=== PATIENT | male | born 1980 | race Caucasian/White ===

== ENCOUNTER 2019-12-17 23:08 | Emergency (ER) | payer OTHER, SELFPAY ==
[2019-12-17 23:39] VITALS: BP 152/74; PULSE 80; RESP 16; TEMP 37.2; O2SAT 98; BMI 38.9
--- NOTE | 2019-12-18 00:42 | HMH.EDEYEP ---
ED Disposition Clinical Impression: Foreign body, eye Qualifiers: Encounter type: initial encounter Laterality: right Qualified Code(s): T15.91XA - Foreign body on external eye, part unspecified, right eye, initial encounter Disposition: Home, Self-Care Condition on Discharge: Good Instructions: DI for Eye Pain Additional Instructions: see dr head this am for follow up Referrals: Jorge A Hodge MD [Primary Care Provider] - - Critical Care Critical Care Time: No Attestation: On 12/17/19, the high probability of a clinically significant, sudden or life threatening deterioration of the following system(s) required my full and direct attention, intervention and personal management. The time I documented below is in addition to time spent performing reported procedures but includes the following listed in this critical care notation. Medical Decision Making - Medical Records Medical records reviewed: Yes: I reviewed the patient's medical records. - Ye Inquiry Pt receiving controlled substance: No Vital Signs: 12/17/19 23:39 Temperature 98.9 F Temperature Source Oral Pulse Rate [Right Brachial] 80 Respiratory Rate 16 Blood Pressure [Right Arm] 152/74 H Blood Pressure Mean [Right Arm] 100 Blood Pressure Source [Right Arm] Automatic Cuff Blood Pressure Position [Right Arm] Sitting 02 Sat by Pulse Oximetry 98 Oxygen Delivery Method Room Air Eye Problem HPI - General Chief complaint: Eye Problems Stated complaint: FB in right eye Time Seen by Provider: 12/18/19 00:00 Mode of Arrival: Family Vehicle Source of Information: Patient, Medical Record Limitations: No Limitations Description of Symptoms (Recalled from ER Triage Doc. by RN): right eye pain; states he was cutting wood and he thinks a speck may have gotten inside his eye. denies vision associated issues. flushed with tapwater. - History of Present Illness HPI Narrative: cutting wood and possible fb in rt eye chief complaint: foreign body Onset (ago): hour(s) Duration: now resolved Location: right eye Eye Symptoms: foreign body sensation Place: home Mechanism: other (sawwing wood ) Severity: moderate Treatments Prior to Arrival: none - Related Data Home Medications Medication Instructions Recorded Confirmed montelukast 10 mg tablet 10 mg PO DAILY tab 11/04/19 12/11/19 Previous Rx's Medication Instructions Recorded fluticasone propionate 50 See Rx Instructions .ROUTE 11/28/19 mcg/actuation nasal .COMPLEX #16 gram spray,suspension escitalopram oxalate 20 mg tablet 20 mg PO DAILY #30 tab 12/11/19 hydroxyzine pamoate 25 mg capsule 25 mg PO TID PRN #60 cap 12/11/19 loratadine 10 mg disintegrating 10 mg PO DAILY PRN #30 tab 12/11/19 tablet Allergies Allergy/AdvReac Type Severity Reaction Status Date / Time acetaminophen [From Vicodin] Allergy Verified 12/11/19 15:24 hydrocodone [From Vicodin] Allergy Verified 12/11/19 15:24 propoxyphene Allergy Verified 12/11/19 15:24 [From Darvocet-N] [facility] History - Hepatitis A Screen Drug use history?: No High risk sexual behaviors?: No History of sexually transmitted infection?: No Currently employed?: No Childcare worker?: No Do you have indoor plumbing?: Yes Do you have electricity?: Yes Attestation statement:: This patient has been screened for Hepatitis A risk factors. I have reviewed the patient's past medical history: Yes Medical History: Denies:: Cancer, Diabetes Mellitus Type 1, Diabetes Mellitus Type 2, MRSA, Seizures Other Medical History: Denies: Blood Transfusion Reaction Laterality Cases: Bilateral: Tonsillectomy Other Surgeries: Yes: Other Amputation: No Fractures: No Comment: right hand tendon, left wrist - Social History Smoking Status: Current every day smoker Tobacco Type: cigarettes # Packs/Day (cigarettes): 1 Alcohol Intake: never Substance Use Type: denies use Occupational Status: unemployed Housing: house Household
[2019-12-18 00:51] VITALS: BP 121/65; PULSE 76; RESP 15; TEMP 36.1; O2SAT 98
== END 2019-12-18 00:54 | disposition home or self-care (01) ==
PROVIDERS: Emergency Provider Emergency Medicine; PCP Emergency Medicine
DX: T15.91XA Foreign body on external eye, part unspecified, right eye, initial encounter (principal); W45.8XXA Other foreign body or object entering through skin, initial encounter; Y92.89 Other specified places as the place of occurrence of the external cause; F17.210 Nicotine dependence, cigarettes, uncomplicated
CPT/HCPCS: 99281

== ENCOUNTER 2020-07-21 15:59 | Emergency (ER) | payer OTHER, SELFPAY ==
[2020-07-21 16:08] VITALS: BP 120/78; PULSE 85; RESP 18; TEMP 36.7; O2SAT 98; BMI 32.5
--- NOTE | 2020-07-21 16:16 | XR_ITS ---
PROCEDURE INFORMATION: Exam: XR Left Knee Exam date and time: 07/21/2020 4:16 PM Age: 40 years old Clinical indication: Pain; Knee; Left TECHNIQUE: Imaging protocol: XR Left knee. Views: 3 views. COMPARISON: No relevant prior studies available. FINDINGS: Bones/joints: There is no evidence of acute fracture. There is no evidence of joint malalignment or dislocation. Soft tissues: There are no soft tissue masses or fluid collections. IMPRESSION: 1. No evidence of acute fracture. 2. No evidence of acute dislocation.
[2020-07-21 16:18] VITALS: BP 120/78; PULSE 85; RESP 18; TEMP 36.7; O2SAT 98
--- NOTE | 2020-07-21 17:24 | HMH.EDUTC ---
[facility] Disposition Clinical Impression: Left knee pain Qualifiers: Chronicity: acute Qualified Code(s): M25.562 - Pain in left knee Disposition: Home, Self-Care Condition on Discharge: Good Instructions: How to Use Crutches, DI for Knee Pain, How to Use a Knee Immobilizer Additional Instructions: Rest the extremity, Elevate the extremity as tolerated while you are resting. Take ibuprofen for pain. I sent in a prescription to your pharmacy. Follow up with Dr. Morales (orthopedics). I put in a referral but you need to call his office and schedule an appointment. Follow up with your regular doctor. GO TO THE ER FOR ANY WORSENING SYMPTOMS Prescriptions: Ibuprofen [Ibuprofen 800mg Tablet] 800 mg PO Q8HP PRN #30 tab PRN Reason: Moderate Pain Transmission Status: Received by [employer] #[id number] Referrals: Jorge A Hodge MD [Primary Care Provider] - Forms: Work/School Release Time of Disposition: 17:32 Medical Decision Making - Medical Records Medical records reviewed: No: I reviewed the patient's medical records. - Ye Inquiry Pt receiving controlled substance: No Vital Signs: 07/21/20 16:08 07/21/20 16:18 Temperature 98.1 F 98.1 F Temperature Source Oral Pulse Rate 85 Pulse Rate [Left] 85 Respiratory Rate 18 18 Blood Pressure 120/78 Blood Pressure [Right Arm] 120/78 Blood Pressure Mean [Right Arm] 92 02 Sat by Pulse Oximetry 98 - Radiology Data #1 Image(s): Knee Image Reviewed: Yes I reviewed the patient's radiology image, Yes I have reviewed radiologist's interpretation Preliminary Findings: No Fracture Seen PROCEDURE INFORMATION: Exam: XR Left Knee Exam date and time: 07/21/2020 4:16 PM Age: 40 years old Clinical indication: Pain; Knee; Left TECHNIQUE: Imaging protocol: XR Left knee. Views: 3 views. COMPARISON: No relevant prior studies available. FINDINGS: Bones/joints: There is no evidence of acute fracture. There is no evidence of joint malalignment or dislocation. Soft tissues: There are no soft tissue masses or fluid collections. IMPRESSION: 1. No evidence of acute fracture. 2. No evidence of acute dislocation. [facility] [place] HPI - General Stated complaint: left knee is hurting Time Seen by Provider: 07/21/20 17:24 Mode of Arrival: Ambulatory Source of Information: Patient Limitations: No Limitations Description of Symptoms (Recalled from Triage Doc. by RN): Pt states he woke up 2 days ago and his left knee was hurting and not getting any better. Pt denies any injury. HEENT Symptoms (Recalled from RN notes): No Resp Symptoms (Recalled from RN notes): No Skin Symptoms (Recalled from RN notes): No MS Symptoms (Recalled from RN notes): Yes Functional Status (Recalled from RN notes): wnl - History of Present Illness Provider Complaint: His knee pain started 2 days ago. He denies any recent injury. He states that standing on the knee and walking makes the pain worse. He has been taking aspirin and tylenol at home for pain, with not much relief noted. - Related Data Home Medications Medication Instructions Recorded Confirmed montelukast 10 mg tablet 10 mg PO DAILY tab 11/04/19 12/11/19 Previous Rx's Medication Instructions Recorded fluticasone propionate 50 See Rx Instructions .ROUTE 11/28/19 mcg/actuation nasal .COMPLEX #16 gram spray,suspension escitalopram oxalate 20 mg tablet 20 mg PO DAILY #30 tab 12/11/19 hydroxyzine pamoate 25 mg capsule 25 mg PO TID PRN #60 cap 12/11/19 loratadine 10 mg disintegrating 10 mg PO DAILY PRN #30 tab 12/11/19 tablet Ibuprofen [Ibuprofen 800mg 800 mg PO Q8HP PRN #30 tab 07/21/20 Tablet] Allergies Allergy/AdvReac Type Severity Reaction Status Date / Time acetaminophen [From Vicodin] Allergy Verified 07/21/20 16:18 hydrocodone [From Vicodin] Allergy Verified 07/21/20 16:18 propoxyphen
== END 2020-07-21 17:44 | disposition home or self-care (01) ==
PROVIDERS: Emergency Provider Nurse Practitioner Family; PCP Emergency Medicine
DX: M25.562 Pain in left knee (principal); Z88.5 Allergy status to narcotic agent; F17.210 Nicotine dependence, cigarettes, uncomplicated
CPT/HCPCS: 73562; 99202; G0463

== ENCOUNTER 2020-09-22 19:57 | Emergency (ER) | payer OTHER, SELFPAY ==
[2020-09-22 20:20] VITALS: BP 145/97; PULSE 83; RESP 19; TEMP 36.8; O2SAT 98; BMI 32.5
--- NOTE | 2020-09-22 20:48 | HMH.EDUTC ---
[facility] Disposition Clinical Impression: Laceration Disposition: Home, Self-Care Condition on Discharge: Good Instructions: How to Care for a Laceration After Repair, Laceration Repair, DI for Laceration Repair Additional Instructions: Suture instructions: You have required stitches today. Please read the following instructions so you know how to care for them: 1. Keep wound area dry for the first 24 hours. 2 May clean gently with mild soap and water, after 48 hours to prevent crusting over suture knots. 3. You may shower if your provider gives permission but do not take a bath until the skin is healed.. 4. Never leave a wet dressing or Band-Aid on your stitches as this allows bacteria to reach the area and may cause infection. Band-aids can cause the wound to sweat and not recommended to wear for long periods of time Watch for signs of infection: Increasing redness, tenderness or warmth around the suture site Unusual swelling around the site Appearance of pus around each suture or any red streaks Fever If you develop any of the above signs or symptoms of infection, Follow up with Family Physician immediately 5. Suture removal in _7-10___days 6. Return to [facility] or follow up with family doctor for removal. This can be done by any medical provider during regular hours on Monday through Monday, by appointment. Prescriptions: Amoxicillin/Potassium Clav [Augmentin 875-125 Tablet] 1 tab PO Q12H 5 Days #10 tab Transmission Status: Pending to [employer] [email or web address] #[id number] Referrals: Jorge A Hodge MD [Primary Care Provider] - As needed Time of Disposition: 21:33 Medical Decision Making - Ye Inquiry Pt receiving controlled substance: No Ye was queried for this patient: No Vital Signs: 09/22/20 20:20 Temperature 98.2 F Temperature Source Oral Pulse Rate [Right Brachial] 83 Respiratory Rate 19 Blood Pressure [Right Arm] 145/97 H Blood Pressure Mean [Right Arm] 113 Blood Pressure Source [Right Arm] Automatic Cuff Blood Pressure Position [Right Arm] Sitting 02 Sat by Pulse Oximetry 98 Oxygen Delivery Method Room Air Orders (Tests/Meds): ED MEDICATIONS Discontinued Medications Generic Name Dose Route Start Last Admin Trade Name Freq PRN Reason Stop Dose Admin Tetanus/Reduced Diphtheria/Acell Pertussis 0.5 ml 09/22/20 20:25 07/20/21 20:33 Tet/Diphth/Pert-Adult 0.5ml Syringe IM 09/22/20 20:26 0.5 ml .ONCE ONE Administration [facility] [place] HPI - General Stated complaint: laceration to right ring finger Time Seen by Provider: 09/22/20 20:48 Mode of Arrival: Ambulatory Source of Information: Patient Limitations: No Limitations Description of Symptoms (Recalled from Triage Doc. by RN): PATIENT C/O LACERATION TO RIGHT RING FINGER WHILE MELISSA [employer]OX 1900 TODAY HEENT Symptoms (Recalled from RN notes): No Resp Symptoms (Recalled from RN notes): No Skin Symptoms (Recalled from RN notes): Yes MS Symptoms (Recalled from RN notes): No Functional Status (Recalled from RN notes): WNL - History of Present Illness Provider Complaint: Patient states that he was working on melissa when he accidently got a laceration to his right ring finger from the metal States that he immediately applied pressure and was having trouble controlling the bleeding State that it has stopped now but he came in to see if he may need stitches - Related Data Home Medications Medication Instructions Recorded Confirmed montelukast 10 mg tablet 10 mg PO DAILY tab 11/04/19 12/11/19 Previous Rx's Medication Instructions Recorded fluticasone propionate 50 See Rx Instructions .ROUTE 11/28/19 mcg/actuation nasal .COMPLEX #16 gram spray,suspension escitalopram oxalate 20 mg tablet 20 mg PO DAILY #30 tab 12/11/19 hydroxyzine pamoate 25 mg capsule 25 mg PO TID PRN #60 cap 12/11/19 loratadine 10 mg disintegrating 10 mg PO DAILY PRN #30 tab 12/11/19 tablet Ibuprofen [Ibuprofen 800mg 800 mg PO Q8HP PRN #30 tab 07/21/20 T
[2020-09-22 21:39] VITALS: BP 145/97; PULSE 83; RESP 19; TEMP 36.8; O2SAT 98
== END 2020-09-22 21:40 | disposition home or self-care (01) ==
PROVIDERS: Emergency Provider Nurse Practitioner; PCP Emergency Medicine
DX: S61.214A Laceration without foreign body of right ring finger without damage to nail, initial encounter (principal); W26.9XXA Contact with unspecified sharp object(s), initial encounter; Y92.89 Other specified places as the place of occurrence of the external cause; Z23 Encounter for immunization
CPT/HCPCS: 12001; 90471; 90715; 99202; G0463

== ENCOUNTER 2020-10-01 20:34 | Emergency (ER) | payer OTHER, SELFPAY ==
[2020-10-01 20:59] VITALS: BP 142/88; PULSE 89; RESP 17; TEMP 36.9; O2SAT 95; BMI 32.5
--- NOTE | 2020-10-01 21:21 | PC.NURSE ---
2119-this nurse removed 4 sutures from pt right ring finger. laceration repair intact and no s/s of infection on visual assessment. pt denies any pain or complaints at this time. [ End ]
[2020-10-01 21:25] VITALS: BP 133/84; PULSE 79; RESP 17; TEMP 36.8; O2SAT 98
== END 2020-10-01 21:26 | disposition home or self-care (01) ==
LOC: ER 20:38
PROVIDERS: Emergency Provider Family Medicine; PCP Emergency Medicine
DX: S61.214D Laceration without foreign body of right ring finger without damage to nail, subsequent encounter (principal)
CPT/HCPCS: 99212; G0463

== ENCOUNTER 2021-03-17 18:54 | Emergency (ER) | payer OTHER, SELFPAY ==
[2021-03-17 18:55] VITALS: BP 132/85; PULSE 92; RESP 14; TEMP 36.6; O2SAT 98; BMI 34.8
[2021-03-17 19:23] VITALS: PULSE 92; RESP 14; TEMP 36.6; O2SAT 98; BMI 34.9
--- NOTE | 2021-03-17 19:27 | XR_ITS ---
PROCEDURE INFORMATION: Exam: XR Right Elbow Exam date and time: 03/17/2021 7:27 PM Age: 41 years old Clinical indication: Pain; Elbow; Right TECHNIQUE: Imaging protocol: XR Right elbow. Views: 3 or more views. Total images: 3 COMPARISON: No relevant prior studies available. FINDINGS: Bones/joints: No fractures. No blastic or lytic lesions. Radiocapitellar alignment and ulnotrochlear alignment are normal. No gross joint effusion. Soft tissues: No periostitis or osteolysis. No gross soft tissue abnormalities. No radiopaque foreign bodies. Other findings: Proximal radioulnar alignment is normal. IMPRESSION: No acute findings.
--- NOTE | 2021-03-17 19:48 | HMH.EDUTC ---
[facility] Disposition Clinical Impression: Lateral epicondylitis of elbow Qualifiers: Laterality: right Qualified Code(s): M77.11 - Lateral epicondylitis, right elbow Disposition: Condition on Discharge: Good Instructions: DI for Lateral Epicondylitis (Tennis Elbow), Lateral Epicondylitis, How To Perform RICE (Rest, Ice, Compress, Elevate) Additional Instructions: *RICE, Rest the extremity, Ice 15-20 minutes 3-4 times daily, Compress- wear the armando wrap as discussed as much as possible to help reduce swelling and pain, Elevate the extremity when at rest *Armando wrap is for support and help control swelling, use it except in the shower. Be sure that is not to tight but not to loose either *Elevate when resting *Ibuprofen 800 every8 hours as needed for pain an inflammation. If need something more can take Tylenol in between doses of Ibuprofen to help Immediately follow up with your family doctor for new or worsening of symptoms, or no noticeable improvement over the next 3-5 days Prescriptions: Ibuprofen [Ibuprofen 800mg Tablet] 800 mg PO Q8HP PRN #20 tab PRN Reason: Moderate Pain Transmission Status: Pending to [facility] # methylPREDNISolone [Medrol 4mg tab] 4 mg PO DIRECTED #21 tab Transmission Status: Pending to [facility] # Referrals: Jorge A Hodge MD [Primary Care Provider] - As needed Time of Disposition: 20:05 Medical Decision Making - Ye Inquiry Pt receiving controlled substance: No Ye was queried for this patient: No Vital Signs: 03/17/21 18:55 03/17/21 19:23 Temperature 98 F 98 F Temperature Source Oral Oral Pulse Rate [Radial] 92 H 92 H Respiratory Rate 14 14 Blood Pressure [Right Arm] 132/85 Blood Pressure Mean [Right Arm] 100 Blood Pressure Position [Right Arm] Sitting 02 Sat by Pulse Oximetry 98 98 Oxygen Delivery Method Room Air - Radiology Data #1 Image(s): Elbow Image Reviewed: Yes I have reviewed radiologist's interpretation IMPRESSION: No acute findings. [facility] HPI - General Stated complaint: pain R elbow Time Seen by Provider: 03/17/21 19:48 Mode of Arrival: Ambulatory Source of Information: Patient Limitations: No Limitations Description of Symptoms (Recalled from Triage Doc. by RN): pt c/o R elbow pain x1wk. no injury noted. HEENT Symptoms (Recalled from RN notes): No Resp Symptoms (Recalled from RN notes): No Skin Symptoms (Recalled from RN notes): No MS Symptoms (Recalled from RN notes): Yes (R elbow pain) Functional Status (Recalled from RN notes): wnl - History of Present Illness Provider Complaint: Patient states that he has been having pain in his right elbow for over a week States that he doesnt recall injurying the elbow but was using a tool to screw the screws into the legs of a table when he started having pain in the side of his elbow States that it has continued on and off and feels like it shoots pain down arm at times - Related Data Home Medications Medication Instructions Recorded Confirmed montelukast 10 mg tablet 10 mg PO DAILY tab 11/04/19 12/11/19 Previous Rx's Medication Instructions Recorded fluticasone propionate 50 See Rx Instructions .ROUTE 11/28/19 mcg/actuation nasal .COMPLEX #16 gram spray,suspension escitalopram oxalate 20 mg tablet 20 mg PO DAILY #30 tab 12/11/19 hydroxyzine pamoate 25 mg capsule 25 mg PO TID PRN #60 cap 12/11/19 loratadine 10 mg disintegrating 10 mg PO DAILY PRN #30 tab 12/11/19 tablet Ibuprofen [Ibuprofen 800mg 800 mg PO Q8HP PRN #30 tab 07/21/20 Tablet] Amoxicillin/Potassium Clav 1 tab PO Q12H 5 Days #10 tab 09/22/20 [Augmentin 875-125 Tablet] Ibuprofen [Ibuprofen 800mg 800 mg PO Q8HP PRN #20 tab 03/17/21 Tablet] methylPREDNISolone [Medrol 4mg 4 mg PO DIRECTED #21 tab 03/17/21 tab] Allergies Allergy/AdvReac Type Severity Reaction Status Date / Time acetaminophen [From Vicodin] Allergy Verified 07/21/20 16:18
[2021-03-17 20:14] VITALS: BP 132/85; PULSE 92; RESP 14; TEMP 36.6
== END 2021-03-17 20:14 | disposition home or self-care (01) ==
PROVIDERS: Emergency Provider Nurse Practitioner; PCP Emergency Medicine
DX: M77.11 Lateral epicondylitis, right elbow (principal)
CPT/HCPCS: 73080; 99202; G0463

== ENCOUNTER 2021-04-25 17:48 | Emergency (ER) | payer OTHER, SELFPAY ==
[2021-04-25 17:50] VITALS: BP 148/91; PULSE 86; RESP 18; TEMP 37.5; O2SAT 99; BMI 35.5
[2021-04-25 18:06] LABS: UTC Strep Screen (Rapid) Positive (Negative)
--- NOTE | 2021-04-25 18:19 | HMH.EDUTC ---
[facility] [place] Clinical Impression: Strep throat Disposition: Home, Self-Care Condition on Discharge: Good Instructions: Strep Throat, DI for Strep Throat Additional Instructions: *Monitor Temp, Over the counter Motrin or Tylenol as directed/as needed Tylenol every 4 hours and Motrin every 6 hours (as long as your family doctor has told you that you can take it) for fever or pain. and straight to ER if unable to lower temp less than 101.0 after medication given *Warm salt water gargles may help to soothe the throat *Throat Lozenges *Warm fluids like tea with honey may help to soothe the throat *Sleep elevated *Humidifier/Vaporizer *If you did not take Penicillin shot or was unable to, start taking antibiotic immediately and make sure that you take it for the FULL length of time although you should start to feel better in 24-48 hours *change toothbrush and toothpaste 24-48 hours after starting to take antibiotics so you do not reinfect yourself Monitor Temp. Tylenol and/or Ibuprofen as needed. ER if fever is no less than 101 despite alternating Tylenol and Ibuprofen * Encourage fluids, water, Gatorade, powerade, pedialyte if infant/toddler/or child *Cold fluids, popsicles and ice cream may feel good on his throat Follow up IMMEDIATELY for new or worsening symptoms or no Noticeable improvement over the next 48-72 hours. 911 for difficulty breathing or swallowing Referrals: Jorge A Hodge MD [Primary Care Provider] - As needed Time of Disposition: 18:27 Medical Decision Making - Ye Inquiry Pt receiving controlled substance: No Ye was queried for this patient: No Vital Signs: 04/25/21 17:50 04/25/21 18:43 Temperature 99.5 F 99.5 F Temperature Source Oral Pulse Rate 86 Pulse Rate [Right Brachial] 86 Respiratory Rate 18 18 Blood Pressure 148/91 H Blood Pressure [Right Arm] 148/91 H Blood Pressure Mean [Right Arm] 110 Blood Pressure Source [Right Arm] Automatic Cuff Blood Pressure Position [Right Arm] Sitting 02 Sat by Pulse Oximetry 99 Oxygen Delivery Method Room Air - Lab Data Lab results reviewed: Yes: I reviewed the patient's lab results. Lab Results 04/25/21 17:59: Strep Scn Rapid [facility] Positive A Orders (Tests/Meds): ED MEDICATIONS Discontinued Medications Generic Name Dose Route Start Last Admin Trade Name Tr PRN Reason Stop Dose Admin Penicillin G Benzathine 1,200,000 unit 04/25/21 18:25 04/25/21 18:33 Penicillin G Benzathine 1,200,000 Units/2ml Syringe IM 04/25/21 18:26 1,200,000 unit ONCE ONE Administration [facility] [place]PI - General Stated complaint: DIARRHEA Time Seen by Provider: 04/25/21 18:19 Mode of Arrival: Ambulatory Source of Information: Patient Limitations: No Limitations Description of Symptoms (Recalled from Triage Doc. by RN): PATIENT C/O SORE THROAT SINCE YESTERDAY. SON HAS STREP HEENT Symptoms (Recalled from RN notes): Yes Resp Symptoms (Recalled from RN notes): No Skin Symptoms (Recalled from RN notes): No MS Symptoms (Recalled from RN notes): No Functional Status (Recalled from RN notes): WNL - Related Data Home Medications Medication Instructions Recorded Confirmed montelukast 10 mg tablet 10 mg PO DAILY tab 11/04/19 12/11/19 Previous Rx's Medication Instructions Recorded fluticasone propionate 50 See Rx Instructions .ROUTE 11/28/19 mcg/actuation nasal .COMPLEX #16 gram spray,suspension escitalopram oxalate 20 mg tablet 20 mg PO DAILY #30 tab 12/11/19 hydroxyzine pamoate 25 mg capsule 25 mg PO TID PRN #60 cap 12/11/19 loratadine 10 mg disintegrating 10 mg PO DAILY PRN #30 tab 12/11/19 tablet Ibuprofen [Ibuprofen 800mg 800 mg PO Q8HP PRN #30 tab 07/21/20 Tablet] Amoxicillin/Potassium Clav 1 tab PO Q12H 5 Days #10 tab 09/22/20 [Augmentin 875-125 Tablet] Ibuprofen [Ibuprofen 800mg 800 mg PO Q8HP PRN #20 tab 03/17/21 Tablet] methylPREDNISolone [Medrol 4mg 4 mg PO DIRECTED #21 tab 03/17
[2021-04-25 18:43] VITALS: BP 148/91; PULSE 86; RESP 18; TEMP 37.5; O2SAT 99
== END 2021-04-25 18:47 | disposition home or self-care (01) ==
PROVIDERS: Emergency Provider Nurse Practitioner; PCP Emergency Medicine
DX: J02.0 Streptococcal pharyngitis (principal); R19.7 Diarrhea, unspecified
CPT/HCPCS: 87880; 96372; 99202; G0463; J0561

== ENCOUNTER 2021-05-17 19:52 | Emergency (ER) | payer OTHER, SELFPAY ==
[2021-05-17 21:15] VITALS: BP 138/86; PULSE 98; RESP 21; TEMP 36.7; O2SAT 97; BMI 33.9
--- NOTE | 2021-05-17 21:28 | XR_ITS ---
PROCEDURE INFORMATION: Exam: XR Left Knee Exam date and time: 05/17/2021 9:28 PM Age: 41 years old Clinical indication: Pain; Knee; Left TECHNIQUE: Imaging protocol: XR Left knee. Views: 3 views. COMPARISON: CR XR KNEE LT 3V 07/21/2020 4:28 PM FINDINGS: Bones/joints: No acute fracture. No dislocation. No knee joint effusion. Soft tissues: Normal. IMPRESSION: No acute findings.
--- NOTE | 2021-05-17 21:28 | XR_ITS ---
PROCEDURE INFORMATION: Exam: XR Left Hip Exam date and time: 05/17/2021 9:28 PM Age: 41 years old Clinical indication: Hip pain; Left hip TECHNIQUE: Imaging protocol: XR Left hip. Views: 2 or 3 views hip with pelvis when performed. COMPARISON: CT ABDOMEN PELVIS W CON 02/15/2019 11:57 PM FINDINGS: Bones/joints: No acute displaced fracture. No dislocation. Small chronic/corticated ossific body near the lesser trochanter. Mild left hip osteoarthrosis. Soft tissues: Unremarkable. IMPRESSION: No acute finding.
--- NOTE | 2021-05-17 21:28 | XR_ITS ---
PROCEDURE INFORMATION: Exam: XR Left Femur Exam date and time: 05/17/2021 9:28 PM Age: 41 years old Clinical indication: Pain; Thigh; Left TECHNIQUE: Imaging protocol: XR Left femur. Views: 2 views. COMPARISON: CR XR HIP LT 2-3V W/PELVIS 05/17/2021 9:32 PM FINDINGS: Bones/joints: No acute displaced fracture. No dislocation. Small chronic/corticated ossific body near the lesser trochanter. Mild left hip osteoarthrosis. Soft tissues: Unremarkable. IMPRESSION: No acute finding.
--- NOTE | 2021-05-17 22:05 | HMH.EDUTC ---
[facility] [place] Disposition Clinical Impression: Left hamstring injury Qualifiers: Encounter type: initial encounter Qualified Code(s): S76.302A - Unspecified injury of muscle, fascia and tendon of the posterior muscle group at thigh level, left thigh, initial encounter Tear of left hamstring Qualifiers: Encounter type: initial encounter Qualified Code(s): S76.312A - Strain of muscle, fascia and tendon of the posterior muscle group at thigh level, left thigh, initial encounter Disposition: Home, Self-Care Condition on Discharge: Good Instructions: DI for Hamstring Strain Additional Instructions: Rest the extremity, Elevate the extremity as tolerated while you are resting. Take ibuprofen for pain. I sent in a prescription to your pharmacy. Follow up with Dr. Morales (orthopedics). I put in a referral but you need to call his office and schedule an appointment. Follow up with your regular doctor. GO TO THE ER FOR ANY WORSENING SYMPTOMS Prescriptions: Ibuprofen [Ibuprofen 800mg Tablet] 800 mg PO Q8HP PRN #30 tab PRN Reason: Moderate Pain Transmission Status: Received by [facility] #[id number] Referrals: Jorge A Hodge MD [Primary Care Provider] - Eric Morales MD [Staff Physician] - Time of Disposition: 22:48 Medical Decision Making - Medical Records Medical records reviewed: No: I reviewed the patient's medical records. - Ye Inquiry Pt receiving controlled substance: No Vital Signs: 05/17/21 21:15 05/17/21 22:36 Temperature 98.1 F 98.1 F Temperature Source Oral Pulse Rate 98 H Pulse Rate [Right Brachial] 98 H Respiratory Rate 21 21 Blood Pressure 138/86 Blood Pressure [Right Arm] 138/86 Blood Pressure Mean [Right Arm] 103 Blood Pressure Source [Right Arm] Automatic Cuff Blood Pressure Position [Right Arm] Sitting 02 Sat by Pulse Oximetry 97 Oxygen Delivery Method Room Air [facility] [place] HPI - General Stated complaint: pain Lower side L thigh Time Seen by Provider: 05/17/21 22:05 Mode of Arrival: Ambulatory Source of Information: Patient Limitations: No Limitations Description of Symptoms (Recalled from Triage Doc. by RN): PATIENT REPORTS THAT HE WAS WALKING UP STEPS APPROX 1.5 WEEKS AGO AND PULLED SOMETHING IN HIS POSTERIOR LEFT THIGH. STATES HE WOULD LIKE A REFERAL TO A SPECIALIST HEENT Symptoms (Recalled from RN notes): No Resp Symptoms (Recalled from RN notes): No Skin Symptoms (Recalled from RN notes): No MS Symptoms (Recalled from RN notes): Yes Functional Status (Recalled from RN notes): WNL - History of Present Illness Provider Complaint: He states that he was walking up some steps approx 1 week ago when he felt something pull in the back and lateral side of his left thigh. Since then, he has had pain and swelling in that area. He is here to get a referral to a specialist to have this evaluated better. - Related Data Previous Rx's Medication Instructions Recorded Ibuprofen [Ibuprofen 800mg 800 mg PO Q8HP PRN #30 tab 05/17/21 Tablet] Allergies Allergy/AdvReac Type Severity Reaction Status Date / Time acetaminophen [From Vicodin] Allergy Verified 07/21/20 16:18 hydrocodone [From Vicodin] Allergy Verified 07/21/20 16:18 propoxyphene Allergy Verified 07/21/20 16:18 [From Darvocet-N] - Worker's Comp Is this a Worker's Comp case?: No [facility] History - Hepatitis A Screen Drug use history?: No High risk sexual behaviors?: No History of sexually transmitted infection?: No Currently employed?: No Childcare worker?: No Do you have indoor plumbing?: Yes Do you have electricity?: Yes Attestation statement:: This patient has been screened for Hepatitis A risk factors. I have reviewed the patient's past medical history: Yes Medical History: Denies:: Cancer, Diabetes Mellitus Type 1, Diabetes Mellitus Type 2, MRSA, Seizures Other Medical History: Denies: Blood Transfusion Reaction Laterality Cases: Bilateral: Tonsillectomy Other Michele
[2021-05-17 22:36] VITALS: BP 138/86; PULSE 98; RESP 21; TEMP 36.7; O2SAT 97
== END 2021-05-17 22:48 | disposition home or self-care (01) ==
PROVIDERS: Emergency Provider Nurse Practitioner Family; PCP Emergency Medicine
DX: S76.312A Strain of muscle, fascia and tendon of the posterior muscle group at thigh level, left thigh, initial encounter (principal); X50.1XXA Overexertion from prolonged static or awkward postures, initial encounter; Y92.89 Other specified places as the place of occurrence of the external cause; F17.210 Nicotine dependence, cigarettes, uncomplicated
CPT/HCPCS: 73502; 73552; 73562; 99212; G0463

== ENCOUNTER → 2021-05-24 10:07 | Outpatient (CLI) | payer OTHER, SELFPAY ==
--- NOTE | 2021-05-24 10:24 | MR_ITS ---
FINAL REPORT CLINICAL HISTORY: Lt thigh pain. LT THIGH PAIN. POSTERIOR LEG SWELLING X2.5WKS. NO INJURY OR TRAUMA. PRIOR X-RAY 05-17-21 FINDINGS: Multiplanar MR imaging of the left femur/thigh was performed without contrast. There is no evidence of fracture, bone bruise or marrow edema. No bony mass is identified. There is mild edema throughout the hamstring musculature particularly involving the biceps femoris best seen on axial images 30 1-39 of series 24. There is a small knee joint effusion. A small popliteal cyst measures 5.2 cm in cranial caudal dimensions. IMPRESSION: Edema in the hamstring musculature particularly the biceps femoris of unclear etiology. Findings could be due to myositis or subclinical injury. Small popliteal cyst. Reviewed, Interpreted and Dictated by Buster Lopez MD Transcribed by William López Authenticated by Buster oLpez MD on 05/24/2021 04:28:30 PM [facility]
== END ==
PROVIDERS: PCP Emergency Medicine; Visit Provider Orthopaedic Surgery
DX: S76.312A Strain of muscle, fascia and tendon of the posterior muscle group at thigh level, left thigh, initial encounter (principal)
CPT/HCPCS: 73718

== ENCOUNTER 2021-09-11 19:07 | Emergency (ER) | payer OTHER, SELFPAY ==
[2021-09-11 19:35] VITALS: BP 133/82; PULSE 83; RESP 17; TEMP 36.7; O2SAT 98; BMI 34.2
--- NOTE | 2021-09-11 20:04 | HMH.EDUTC ---
[facility] [place] Disposition Clinical Impression: Trapezius muscle spasm Disposition: Home, Self-Care Condition on Discharge: Good Instructions: DI for Muscle Spasm Additional Instructions: Heat, stretching, meds as directed Prescriptions: Cyclobenzaprine HCl [Cyclobenzaprine 10mg Tab*] 10 mg PO TIDP PRN 10 Days #30 tab PRN Reason: Muscle Spasm Transmission Status: Pending to [facility] # Ketorolac Tromethamine [Toradol 10mg tablet] 10 mg PO Q6HP PRN 10 Days #20 tab MDD 40mg/day PRN Reason: pain Transmission Status: Pending to [facility] # Referrals: Jorge A Hodge MD [Primary Care Provider] - Time of Disposition: 20:10 Medical Decision Making - Ye Inquiry Pt receiving controlled substance: No Vital Signs: 09/11/21 19:35 Temperature 98.1 F Temperature Source Oral Pulse Rate [Right Brachial] 83 Respiratory Rate 17 Blood Pressure [Right Arm] 133/82 Blood Pressure Mean [Right Arm] 99 Blood Pressure Source [Right Arm] Automatic Cuff Blood Pressure Position [Right Arm] Sitting 02 Sat by Pulse Oximetry 98 Oxygen Delivery Method Room Air Orders (Tests/Meds): ED MEDICATIONS Discontinued Medications Generic Name Dose Route Start Last Admin Trade Name Freq PRN Reason Stop Dose Admin Ketorolac Tromethamine 60 mg 09/11/21 19:56 Ketorolac 60mg/2ml Vial IM 09/11/21 19:57 ONCE ONE Orphenadrine Citrate 60 mg 09/11/21 19:56 Orphenadrine Citrate 60mg/2ml Vial IM 09/11/21 19:57 ONCE ONE [facility] HPI - General Stated complaint: poss pulled muscle in neck Time Seen by Provider: 09/11/21 20:04 Mode of Arrival: Ambulatory Source of Information: Patient Limitations: No Limitations Description of Symptoms (Recalled from Triage Doc. by RN): PATIENT C/O STIFFNESS AND SORENESS TO NECK X 3 DAYS HEENT Symptoms (Recalled from RN notes): No Resp Symptoms (Recalled from RN notes): No Skin Symptoms (Recalled from RN notes): No MS Symptoms (Recalled from RN notes): Yes Functional Status (Recalled from RN notes): WNL - History of Present Illness Provider Complaint: Pain and stiffness to right side of neck/upper back for 4-5 days. No injury. Getting worse. Thought he had slept wrong but getting worse and can't turn head/neck to the right. Onset (ago): day(s) (5) Location: neck Quality: burning, sharp Consistency: constant Relieving factors: immobilization Exacerbating factors: movement Associated symptoms: denies other symptoms Treatments prior to arrival: none - Related Data Previous Rx's Medication Instructions Recorded ibuprofen 800 mg tablet 800 mg PO Q8H PRN #30 tab 06/08/21 cyclobenzaprine 5 mg tablet 5 mg PO TID PRN #20 tab 07/20/21 Cyclobenzaprine HCl 10 mg PO TIDP PRN 10 Days #30 tab 09/11/21 [Cyclobenzaprine 10mg Tab*] Ketorolac Tromethamine [Toradol 10 mg PO Q6HP PRN 10 Days #20 tab 09/11/21 10mg tablet] MDD 40mg/day Allergies Allergy/AdvReac Type Severity Reaction Status Date / Time acetaminophen [From Vicodin] Allergy Verified 08/31/21 14:20 hydrocodone [From Vicodin] Allergy Verified 08/31/21 14:20 propoxyphene Allergy Verified 08/31/21 14:20 [From Darvocet-N] - Worker's Comp Is this a Worker's Comp case?: No [facility] History - Hepatitis A Screen Attestation statement:: This patient has been screened for Hepatitis A risk factors. I have reviewed the patient's past medical history: Yes Medical History: Denies:: Cancer, Diabetes Mellitus Type 1, Diabetes Mellitus Type 2, MRSA, Seizures Other Medical History: Denies: Blood Transfusion Reaction Laterality Cases: Bilateral: Tonsillectomy Other Surgeries: Yes: Other Amputation: No Fractures: No Comment: right hand tendon, left wrist - Social History Smoking Status: Current every day smoker Tobacco Type: cigarettes # Packs/Day (cigarettes): 1 Alcohol Intake: never Substance Use Type: denies use Occupational Status: other Housing: house Household Members: si
[2021-09-11 20:16] VITALS: BP 133/82; PULSE 83; RESP 17; TEMP 36.7; O2SAT 98
== END 2021-09-11 20:24 | disposition home or self-care (01) ==
PROVIDERS: Emergency Provider Physician Assistant; PCP Emergency Medicine
DX: M54.2 Cervicalgia (principal)
CPT/HCPCS: 96372; 99212; G0463

== ENCOUNTER 2021-09-18 21:58 | Emergency (ER) | payer OTHER, SELFPAY ==
[2021-09-18 22:01] VITALS: BP 135/75; PULSE 90; RESP 16; TEMP 37.7; O2SAT 98; BMI 33.9
[2021-09-18 23:36] LABS: Influenza A, PCR Not Detected (NotDetected); Influenza B, PCR Not Detected (NotDetected)
--- NOTE | 2021-09-19 00:19 | PC.NURSE ---
MD speaking with pt about POC
[2021-09-19 00:53] LABS: Coronavirus 19, PCR Detected (NotDetected)
--- NOTE | 2021-09-19 01:04 | HMH.EDURI ---
ED Disposition Clinical Impression: COVID-19 Disposition: Home, Self-Care Condition on Discharge: Good Instructions: DI for COVID-19 (Suspected or Confirmed ) Additional Instructions: fluids and use meds and see pcp for follow up Prescriptions: Molnupiravir [Molnupiravir (Eua)] 800 mg PO BID #40 cap Transmission Status: Pending to [facility] Referrals: Jorge A Hodge MD [Primary Care Provider] - - Critical Care Critical Care Time: No Attestation: On 09/18/21, the high probability of a clinically significant, sudden or life threatening deterioration of the following system(s) required my full and direct attention, intervention and personal management. The time I documented below is in addition to time spent performing reported procedures but includes the following listed in this critical care notation. Medical Decision Making - Medical Records Medical records reviewed: Yes: I reviewed the patient's medical records. - Ye Inquiry Pt receiving controlled substance: No Vital Signs: 09/18/21 22:01 Temperature 99.8 F H Temperature Source Oral Pulse Rate [Right] 90 Respiratory Rate 16 Blood Pressure [Right Arm] 135/75 Blood Pressure Mean [Right Arm] 95 02 Sat by Pulse Oximetry 98 - Lab Data Lab results reviewed: Yes: I reviewed the patient's lab results. Lab Results 09/18/21 23:24: SARS-CoV-2 (PCR) Detected A, Influenza A Untype (PCR) Not detected, Influenza Type B (PCR) Not detected Orders (Tests/Meds): ORDERS Category Date Time Status Strep Scrn Group A (Rapid) Stat Lab 09/18/21 23:25 Received Medical Decision Narrative: has covid-19 and will treat pt at this time with lagevrio URI/Sore Throat HPI - General Chief Complaint: Upper Respiratory Infection Stated Complaint: throat ,Light headed not feeling good Time Seen by Provider: 09/19/21 01:04 Mode of Arrival: Ambulatory Source of Information: Patient, Medical Record Limitations: No Limitations Description of Symptoms (Recalled from ER Triage Doc. by RN): pt c/o cough, sore throat, ABURTO, weakness that started today. - History of Present Illness HPI Narrative: sore throat with cough and aburto with fever over the last few days - no rash Complaint: fever, cough, sore throat Onset (ago): day(s) Duration: intermittent Severity: moderate Able to tolerate fluids by mouth: Yes Associated symptoms: denies other symptoms Treatments prior to arrival: none - Related Data Previous Rx's Medication Instructions Recorded ibuprofen 800 mg tablet 800 mg PO Q8H PRN #30 tab 06/08/21 cyclobenzaprine 5 mg tablet 5 mg PO TID PRN #20 tab 07/20/21 Cyclobenzaprine HCl 10 mg PO TIDP PRN 10 Days #30 tab 09/11/21 [Cyclobenzaprine 10mg Tab*] Ketorolac Tromethamine [Toradol 10 mg PO Q6HP PRN 10 Days #20 tab 09/11/21 10mg tablet] MDD 40mg/day Molnupiravir [Molnupiravir (Eua)] 800 mg PO BID #40 cap 09/19/21 Allergies Allergy/AdvReac Type Severity Reaction Status Date / Time acetaminophen [From Vicodin] Allergy Verified 08/31/21 14:20 hydrocodone [From Vicodin] Allergy Verified 08/31/21 14:20 propoxyphene Allergy Verified 08/31/21 14:20 [From Darvocet-N] [facility] History - Hepatitis A Screen Attestation statement:: This patient has been screened for Hepatitis A risk factors. I have reviewed the patient's past medical history: Yes Medical History: Denies:: Cancer, Diabetes Mellitus Type 1, Diabetes Mellitus Type 2, MRSA, Seizures Other Medical History: Denies: Blood Transfusion Reaction Laterality Cases: Bilateral: Tonsillectomy Other Surgeries: Yes: Other Amputation: No Fractures: No Comment: right hand tendon, left wrist - Social History Smoking Status: Current every day smoker Tobacco Type: cigarettes # Packs/Day (cigarettes): 1 Alcohol Intake: never Substance Use Type: denies use Occupational Status: other Housing: house Household Members: significant other, children Family Hx:: Diabete
[2021-09-19 01:05] VITALS: BP 129/81; PULSE 81; RESP 16; TEMP 37.2; O2SAT 98
[2021-09-19 01:54] LABS: Strep Scrn Group A (Rapid) Negative (Negative)
== END 2021-09-19 01:17 | disposition home or self-care (01) ==
PROVIDERS: Emergency Provider Emergency Medicine; PCP Emergency Medicine
DX: U07.1 COVID-19 (principal)
CPT/HCPCS: 87430; 99283; C9803; U0003; U0005

== ENCOUNTER 2021-10-28 17:33 | Emergency (ER) | payer OTHER, SELFPAY ==
[2021-10-28 18:45] VITALS: BP 131/86; PULSE 86; RESP 19; TEMP 36.9; O2SAT 97; BMI 33.2
[2021-10-28 18:55] VITALS: BP 131/86; PULSE 86; RESP 19; TEMP 36.9; O2SAT 97
== END 2021-10-28 18:58 | disposition home or self-care (01) ==
LOC: UTC 17:36
PROVIDERS: Emergency Provider Nurse Practitioner; PCP Emergency Medicine
DX: Z48.02 Encounter for removal of sutures (principal)

== ENCOUNTER 2022-01-15 20:17 | Emergency (ER) | payer OTHER, SELFPAY ==
[2022-01-15 20:18] VITALS: BP 115/73; PULSE 94; RESP 18; TEMP 36.7; O2SAT 100; BMI 34.5
--- NOTE | 2022-01-15 20:49 | XR_ITS ---
PROCEDURE INFORMATION: Exam: XR Chest Exam date and time: 01/15/2022 8:56 PM Age: 41 years old Clinical indication: Cough TECHNIQUE: Imaging protocol: Radiologic exam of the chest. Views: 2 views. COMPARISON: CT ANGIO CHEST 11/02/2018 8:58 PM FINDINGS: Lungs: No evidence of pneumonia or interstitial edema. Pleural spaces: Unremarkable. No pleural effusion. No pneumothorax. Heart/Mediastinum: Unremarkable. No cardiomegaly. Bones/joints: Unremarkable. IMPRESSION: No evidence of pneumonia or interstitial edema.
[2022-01-15 20:59] LABS: Coronavirus 19, PCR Not Detected (NotDetected); Influenza A, PCR Not Detected (NotDetected); Influenza B, PCR Not Detected (NotDetected)
[2022-01-15 21:14] LABS: Strep Scrn Group A (Rapid) Negative (Negative)
--- NOTE | 2022-01-15 22:49 | HMH.EDURI ---
Discharge Plan Disposition Patient Disposition: Home, Self-Care Prescriptions Prescriptions: New azithromycin [azithromycin] 250 mg tablet 250 mg PO DIRECTED Qty: 6 0RF Rx Instructions: Take two (2) tablets on day #1, then one (1) tablet day #2 thru #5 benzonatate 100 mg Capsule 100 mg PO Q8H Qty: 20 0RF prednisone [prednisone] 20 mg tablet 20 mg PO BID Qty: 10 0RF No Action ibuprofen 800 mg tablet 800 mg PO Q8H PRN (Reason: pain) Qty: 30 0RF cyclobenzaprine 5 mg tablet 5 mg PO TID PRN (Reason: muscle spasm) Qty: 20 0RF cyclobenzaprine 10 MG tablet 10 mg PO TIDP PRN (Reason: Muscle Spasm) 10 Days Qty: 30 0RF ketorolac 10 MG tablet 10 mg PO Q6HP MDD 40mg/day PRN (Reason: pain) 10 Days Qty: 20 0RF Rx Instructions: Therapy initiated with IV/IM dose (09/11/20212004) molnupiravir 200 MG capsule 800 mg PO BID Qty: 40 0RF Referrals Follow up/Referrals: Jorge A Hodge MD [Primary Care Provider] - See instructions Clinical Impressions Clinical Impression: Bronchitis Instructions Patient Instructions: DI for Acute Bronchitis Discharge ED Provider: Jorge A Hodge URI/Sore Throat HPI General Chief Complaint: Upper Respiratory Infection Stated Complaint: SOA,Cough Time Seen by Provider: 01/15/22 22:49 Mode of Arrival: Ambulatory Source of Information: Patient and Medical Record Limitations: No Limitations Description of Symptoms (Recalled from ER Triage Doc. by RN): pt c/o SOA, cough, sore throat when coughing x 2 days History of Present Illness HPI Narrative: uri sx with cough and achey over the last few days does smoke Complaint: fever and cough Onset (ago): day(s) Duration: intermittent Severity: moderate Able to tolerate fluids by mouth: Yes Associated symptoms: denies other symptoms Treatments prior to arrival: acetaminophen Related Data Previous Rx's Medication Instructions Recorded ibuprofen 800 mg tablet 800 mg PO Q8H PRN pain #30 tabs 06/08/21 cyclobenzaprine 5 mg tablet 5 mg PO TID PRN muscle spasm #20 07/20/21 tabs cyclobenzaprine 10 mg tablet 10 mg PO TIDP PRN Muscle Spasm 10 07/09/22 days #30 tabs ketorolac 10 mg tablet 10 mg PO Q6HP PRN pain 10 days #20 09/11/21 tabs molnupiravir 200 mg capsule (EUA) 800 mg PO BID #40 caps 09/19/21 azithromycin 250 mg tablet 250 mg PO DIRECTED #6 tabs 01/15/22 benzonatate 100 mg capsule 100 mg PO Q8H #20 caps 01/15/22 prednisone 20 mg tablet 20 mg PO BID #10 tabs 01/15/22 Allergies Allergy/AdvReac Type Severity Reaction Status Date / Time acetaminophen [From Vicodin] Allergy Verified 08/31/21 14:20 hydrocodone [From Vicodin] Allergy Verified 08/31/21 14:20 propoxyphene Allergy Verified 08/31/21 14:20 [From Darvocet-N] [facility] Social History Smoking Status: Never smoker second hand exposure: No alcohol intake: never substance use type: denies use current occupational status: other Travel in the last 8 weeks: None household members: significant other and children housing: house current occupation: [employer] current occupational exposures/hazards: No ROS Obtained: Yes All systems reviewed & no additional complaints except as documented Physical Exam General General appearance: alert and obese Head Head exam: normocephalic Eye Eye exam: Present PERRL and EOMI; Absent scleral icterus ENT ENT exam: Present mucous membranes moist Neck Neck exam: Present trachea midline Respiratory Respiratory exam: Present other (few rhonchi ); Absent respiratory distress Cardiovascular Cardiovascular exam: Present regular rate; Absent systolic murmur Abdominal Exam Abdominal exam: Present soft Extremities Exam Extremities exam: Absent calf tenderness Neurological Exam Neurological exam: Present alert, oriented X3 and CN II-XII intact Psychiatric Psychiatric exam: Present normal affect Skin Skin exam: Absent rash Medical Decision M
[2022-01-15 23:01] VITALS: BP 117/74; PULSE 90; RESP 18; TEMP 36.7; O2SAT 100
== END 2022-01-15 23:02 | disposition home or self-care (01) ==
PROVIDERS: Emergency Provider Emergency Medicine; PCP Emergency Medicine
DX: J40 Bronchitis, not specified as acute or chronic (principal); Z79.899 Other long term (current) drug therapy
CPT/HCPCS: 71046; 87430; 99283; C9803; U0003; U0005

== ENCOUNTER 2022-05-01 18:50 | Emergency (ER) | payer OTHER, SELFPAY ==
[2022-05-01 19:00] VITALS: BP 144/78; PULSE 98; RESP 12; TEMP 36.3; O2SAT 96; BMI 33.0
--- NOTE | 2022-05-01 19:43 | EXP.UTC ---
Discharge Plan Disposition Patient Disposition: Home, Self-Care Condition: Good Prescriptions Prescriptions: New amoxicillin-pot clavulanate 875-125 mg Tablet 1 tab PO Q12H Qty: 20 0RF mupirocin 2 % ointment 1 applic topical TID 10 Days Qty: 22 0RF Rx Instructions: apply to wound on finger guaifenesin [Mucinex] 600 mg tablet extended release 12hr 600 - 1,200 mg PO BID PRN (Reason: cough/congestion) Qty: 20 0RF No Action ibuprofen 800 mg tablet 800 mg PO Q8H PRN (Reason: pain) Qty: 30 0RF cyclobenzaprine 5 mg tablet 5 mg PO TID PRN (Reason: muscle spasm) Qty: 20 0RF cyclobenzaprine 10 MG tablet 10 mg PO TIDP PRN (Reason: Muscle Spasm) 10 Days Qty: 30 0RF ketorolac 10 MG tablet 10 mg PO Q6HP MDD 40mg/day PRN (Reason: pain) 10 Days Qty: 20 0RF Rx Instructions: Therapy initiated with IV/IM dose (09/11/20212004) molnupiravir 200 MG capsule 800 mg PO BID Qty: 40 0RF azithromycin [azithromycin] 250 mg tablet 250 mg PO DIRECTED Qty: 6 0RF Rx Instructions: Take two (2) tablets on day #1, then one (1) tablet day #2 thru #5 benzonatate 100 mg Capsule 100 mg PO Q8H Qty: 20 0RF prednisone [prednisone] 20 mg tablet 20 mg PO BID Qty: 10 0RF Referrals Follow up/Referrals: Jorge A Hodge MD [Primary Care Provider] - See instructions Activity Restrictions/Add. Instructions Additional Instructions/Restrictions: Clean wound well with antibacterial soap and water and apply ointment as prescribed Take medication as prescribed Follow up with your Family Doctor if no improvement or any worsening of symptoms Return if needed Clinical Impressions Clinical Impression: Infected wound Instructions Patient Instructions: Amoxicillin and Clavulanic Acid, Cough, DI for Wound Infection, Skin Wound Discharge ED Provider: Aniyah Leo [facility] [place] H[place] General Stated complaint: scrape on finger, cough soa Mode of Arrival: Ambulatory Source of Information: Patient Limitations: No Limitations Time Seen by Provider: 05/01/22 19:43 Description of Symptoms (Recalled from Triage Doc. by RN): infected finger tip, cough HEENT Symptoms (Recalled from RN notes): No Resp Symptoms (Recalled from RN notes): No Skin Symptoms (Recalled from RN notes): Yes MS Symptoms (Recalled from RN notes): No Functional Status (Recalled from RN notes): n/a History of Present Illness Provider Complaint: Patient states that he jabbed a piece of wood into his right index finger below his finger nail States that he has been using neosporin but thinks it is starting to get infected States that also he has had a cough an didnt know if he could get something for that too Related Data Previous Rx's Medication Instructions Recorded ibuprofen 800 mg tablet 800 mg PO Q8H PRN pain #30 tabs 06/08/21 cyclobenzaprine 5 mg tablet 5 mg PO TID PRN muscle spasm #20 07/20/21 tabs cyclobenzaprine 10 mg tablet 10 mg PO TIDP PRN Muscle Spasm 10 09/11/21 days #30 tabs ketorolac 10 mg tablet 10 mg PO Q6HP PRN pain 10 days #20 09/11/21 tabs molnupiravir 200 mg capsule (EUA) 800 mg PO BID #40 caps 09/19/21 azithromycin 250 mg tablet 250 mg PO DIRECTED #6 tabs 01/15/22 benzonatate 100 mg capsule 100 mg PO Q8H #20 caps 01/15/22 prednisone 20 mg tablet 20 mg PO BID #10 tabs 01/15/22 amoxicillin 875 mg-potassium 1 tab PO Q12H #20 tabs 05/01/22 clavulanate 125 mg tablet guaifenesin 600 mg tablet, 600 - 1,200 mg PO BID PRN 05/01/22 extended release 12 hr (Mucinex) cough/congestion #20 tabs mupirocin 2 % topical ointment 1 applic topical TID 10 days #22 05/01/22 grams Allergies Allergy/AdvReac Type Severity Reaction Status Date / Time acetaminophen [From Vicodin] Allergy Verified 05/01/22 19:14 hydrocodone [From Vicodin] Allergy Verified 05/01/22 19:14 propoxyphene Allergy Verified 05/01/22 19:14 [From Darvocet-N] Worker's Comp Is this a Worker's Comp case?: No PFSH PFSH
[2022-05-01 20:05] VITALS: BP 144/78; PULSE 98; RESP 20; TEMP 36.3; O2SAT 96
== END 2022-05-01 20:04 | disposition home or self-care (01) ==
PROVIDERS: Emergency Provider Nurse Practitioner; PCP Emergency Medicine
DX: L08.89 Other specified local infections of the skin and subcutaneous tissue (principal)
CPT/HCPCS: 99212; 99213; G0463

== ENCOUNTER 2022-06-09 13:24 | Emergency (ER) | payer OTHER, SELFPAY ==
[2022-06-09 13:24] VITALS: BP 139/76; PULSE 83; RESP 18; TEMP 36.8; O2SAT 99; BMI 32.5
--- NOTE | 2022-06-09 13:30 | HMH.EDGENADL ---
Discharge Plan Disposition Patient Disposition: Home, Self-Care Prescriptions Prescriptions: New ondansetron 4 mg tablet,disintegrating 4 mg PO Q6H PRN (Reason: nausea and vomiting) 5 Days Qty: 20 0RF Referrals Follow up/Referrals: Jorge A Hodge MD [Primary Care Provider] - See instructions Activity Restrictions/Add. Instructions Additional Instructions/Restrictions: You have a positive sick contact at home and a positive home COVID-19 test which is all that is needed to make the diagnosis. No additional testing is needed. He also had no significant high risk factors to warrant Paxlovid which is the only oral medication that is currently indicated in high risk patients in patients over the age of 65. I do recommend that she stop smoking. We are going to treat your symptoms supportively including nausea medicine you may take Tylenol and ibuprofen as needed for body aches and you may take [id number] loperamide as needed for diarrhea. Please return to the emergency part with any worsening symptoms Clinical Impressions Clinical Impression: COVID-19, Acute viral syndrome Discharge ED Provider: Harriet Dale General Adult HPI General Chief complaint: Upper Respiratory Infection Stated complaint: Covid test positive @home, wants to be rechecked Time Seen by Provider: 06/09/22 13:31 History of Present Illness HPI narrative: 42-year-old male without any significant past medical history presents today with body aches and some nausea and diarrhea. His positive COVID-19 and he also took a home test which was positive. He has had no respiratory symptoms he continues to smoke. Symptoms are mild currently. Related Data Previous Rx's Medication Instructions Recorded ondansetron 4 mg disintegrating 4 mg PO Q6H PRN nausea and 06/09/22 tablet vomiting 5 days #20 tabs Allergies Allergy/AdvReac Type Severity Reaction Status Date / Time acetaminophen [From Vicodin] Allergy Verified 05/01/22 19:14 hydrocodone [From Vicodin] Allergy Verified 05/01/22 19:14 propoxyphene Allergy Verified 05/01/22 19:14 [From Darvocet-N] [facility] Disclaimer: The information contained in this section may have been updated after the patient was seen, as this information can be updated by other users. Social History Smoking Status: Current every day smoker tobacco type: cigarettes packs per day: 1 second hand exposure: No alcohol intake: never substance use type: denies use current occupational status: other Travel in the last 8 weeks: None household members: significant other and children housing: house current occupation: [employer] current occupational exposures/hazards: No ROS Obtained: Yes All systems reviewed & no additional complaints except as documented Physical Exam General General appearance: alert and in no apparent distress Respiratory Respiratory exam: Present normal lung sounds bilaterally; Absent respiratory distress Cardiovascular Cardiovascular exam: Present regular rate; Absent tachycardia Neurological Exam Neurological exam: Present alert and oriented X3 Medical Decision Making Ye Inquiry Pt receiving controlled substance: No Vital Signs: 06/09/22 13:24 Temperature 98.3 F Temperature Source Oral Pulse Rate [Left] 83 Respiratory Rate 18 Blood Pressure [Right Arm] 139/76 Blood Pressure Mean [Right Arm] 97 Blood Pressure Source [Right Arm] Automatic Cuff Blood Pressure Position [Right Arm] Sitting 02 Sat by Pulse Oximetry 99 Oxygen Delivery Method Room Air Orders (Tests/Meds): ORDERS Category Date Time Status Rapid PCR Covid and Flu A/B Stat Lab 06/09/22 13:32 Received Medical Decision Narrative: Very well-appearing normal vitals and a 42-year-old male who had a positive home contact and a positive COVID-19 test at home. There is no utility to ordering another COVID-19 test i
--- NOTE | 2022-06-09 13:37 | PC.NURSE ---
Per Dr. Dale, cancel COVID/Flu test. Lab notified.
[2022-06-09 13:39] VITALS: BP 139/76; PULSE 79; RESP 19; TEMP 36.8; O2SAT 97
== END 2022-06-09 13:44 | disposition home or self-care (01) ==
PROVIDERS: Emergency Provider Student in an Organized Health Care Education/Training Program; PCP Emergency Medicine
DX: U07.1 COVID-19 (principal); R11.0 Nausea; R19.7 Diarrhea, unspecified
CPT/HCPCS: 99283; 99284

== ENCOUNTER 2022-08-21 21:43 | Emergency (ER) | payer OTHER, SELFPAY ==
[2022-08-21 21:49] VITALS: BP 114/72; PULSE 74; O2SAT 96
[2022-08-21 21:52] VITALS: BP 114/72; PULSE 73; RESP 16; TEMP 36.6; O2SAT 100; BMI 30.7
--- NOTE | 2022-08-21 21:55 | XR_ITS ---
PROCEDURE INFORMATION: Exam: XR Right Ankle Exam date and time: 08/21/2022 9:56 PM Age: 42 years old Clinical indication: Pain; Ankle; Right; Additional info: Fall TECHNIQUE: Imaging protocol: Radiologic exam of the right ankle. Views: 3 or more views. COMPARISON: No relevant prior studies available. FINDINGS: Bones/joints: No acute fracture, dislocation or osseous destructive process. Soft tissues: Soft tissue swelling along the lateral aspect of the ankle. No radiopaque foreign body. IMPRESSION: 1. No acute osseous findings. 2. Soft tissue swelling.
--- NOTE | 2022-08-21 21:55 | XR_ITS ---
PROCEDURE INFORMATION: Exam: XR Right Foot Exam date and time: 08/21/2022 9:58 PM Age: 42 years old Clinical indication: Pain; Foot; Right; Additional info: Fall TECHNIQUE: Imaging protocol: Radiologic exam of the right foot. Views: 3 or more views. COMPARISON: CR XR ANKLE RT MIN 3V 08/21/2022 9:56 PM FINDINGS: Bones/joints: No acute fracture, dislocation or osseous destructive process. Soft tissues: No acute findings or radiopaque foreign body. IMPRESSION: No acute findings.
--- NOTE | 2022-08-21 21:56 | CT_ITS ---
PROCEDURE INFORMATION: Exam: CT Right Lower Extremity Without Contrast, Ankle Exam date and time: 08/21/2022 10:13 PM Age: 42 years old Clinical indication: Pain; Ankle; Right; Additional info: Fall TECHNIQUE: Imaging protocol: CT of the right lower extremity without contrast was performed. Exam focused on the ankle. Radiation optimization: All CT scans at this facility use at least one of these dose optimization techniques: automated exposure control; mA and/or kV adjustment per patient size (includes targeted exams where dose is matched to clinical indication); or iterative reconstruction. REPORTING DATA: Count of CT and Cardiac NM exams in prior 12 months: This patient has received 0 known CTs and 0 known cardiac nuclear medicine studies in the 12 months prior to the current study. COMPARISON: CR XR ANKLE RT MIN 3V 08/21/2022 9:56 PM FINDINGS: Bones/joints: Os trigonum. Os supranaviculare. No acute fracture, dislocation or osseous destructive process. Chronic appearing deformity of the distal tip of the fibula. Soft tissues: Soft tissue swelling along the lateral aspect of the ankle. IMPRESSION: 1. No acute osseous findings. 2. Soft tissue swelling along the lateral aspect of the ankle. 3. If there is continued clinical concern, follow-up with MRI would be appropriate.
--- NOTE | 2022-08-21 22:03 | HMH.EDLOEX ---
Discharge Plan Disposition Patient Disposition: Home, Self-Care Condition: Good Prescriptions Prescriptions: No Action No Known Home Medications Referrals Follow up/Referrals: Jorge A Hodge MD [Primary Care Provider] - See instructions Gaby Keys DPM [Staff Physician] - See instructions Clinical Impressions Clinical Impression: Injury of ankle Instructions Patient Instructions: DI for Ankle Pain Discharge ED Provider: Naveen (ED)Jorge A Lower Extremity Injury HPI General Chief Complaint: Extremity Injury, Lower Stated Complaint: AO 6/7 right foot pain Time Seen by Provider: 08/21/22 21:50 Mode of Arrival: Ambulatory Source of Information: Patient and Medical Record Limitations: No Limitations Description of Symptoms (Recalled from ER Triage Doc. by RN): pt states he started to fall off a roof and caught himself on a ladder about 10d ago. pt states he injured his ankle c/o pain and swelling that is not improving. pt is able to bear weight. History of Present Illness HPI Narrative: acute injury to rt ankle with pain and swelling lat aspect about 1 week ago - has ongoing swelling and pain complaint: ankle injury Onset (ago): day(s) Injury: Right: ankle and foot Type of Injury: blunt Place: home Severity: moderate Associated symptoms: swelling Other symptoms: none Related Data Home Medications Medication Instructions Recorded Confirmed No Known Home Medications 08/21/22 08/21/22 Allergies Allergy/AdvReac Type Severity Reaction Status Date / Time acetaminophen [From Vicodin] Allergy Verified 08/21/22 21:58 hydrocodone [From Vicodin] Allergy Verified 08/21/22 21:58 propoxyphene Allergy Verified 08/21/22 21:58 [From Darvocet-N] [facility] Disclaimer: The information contained in this section may have been updated after the patient was seen, as this information can be updated by other users. Social History Smoking Status: Current every day smoker tobacco type: cigarettes packs per day: 1 second hand exposure: No alcohol intake: never substance use type: denies use current occupational status: other Travel in the last 8 weeks: None household members: significant other and children housing: house current occupation: [employer] current occupational exposures/hazards: No ROS Obtained: Yes All systems reviewed & no additional complaints except as documented Physical Exam General General appearance: alert Head Head exam: normocephalic Eye Eye exam: Present PERRL and EOMI ENT ENT exam: Present mucous membranes moist Neck Neck exam: Present trachea midline Respiratory Respiratory exam: Absent respiratory distress Cardiovascular Cardiovascular exam: Present regular rate Expanded Lower Extremity Exam Right: Lower leg exam: Present Achilles tendon intact Ankle exam: Present tenderness, swelling and other (possible synovial swelling ); Absent full ROM Neurovascular/Tendon exam: Absent pulse deficit or motor deficit Gait: antalgic Neurological Exam Neurological exam: Present alert, oriented X3 and CN II-XII intact; Absent motor sensory deficit Skin Skin exam: Absent rash Medical Decision Making Medical Records Medical records reviewed: Yes I reviewed the patient's medical records. Ye Inquiry Pt receiving controlled substance: No Vital Signs: 08/21/22 21:52 08/21/22 21:49 08/21/22 23:25 Temperature 97.9 F Temperature Source Oral Pulse Rate 74 Pulse Rate [Left] 73 Respiratory Rate 16 Blood Pressure 114/72 Blood Pressure [Right Arm] 114/72 Blood Pressure Mean [Right Arm] 86 Blood Pressure Source Blood Pressure Source [Right Arm] Automatic Cuff Blood Pressure Position Blood Pressure Position [Right Arm] Sitting 02 Sat by Pulse Oximetry 100 96 Oxygen Delivery Method Room Air Room Air 08/21/22 23:25 Temperature 98
--- NOTE | 2022-08-21 22:34 | PC.NURSE ---
Rounded on pt. No needs voiced at this time.
[2022-08-21 23:25] VITALS: BP 112/75; PULSE 79; RESP 19; TEMP 36.8; O2SAT 98
== END 2022-08-22 00:12 | disposition home or self-care (01) ==
PROVIDERS: Emergency Provider Emergency Medicine; PCP Emergency Medicine
DX: M25.571 Pain in right ankle and joints of right foot (principal); R22.41 Localized swelling, mass and lump, right lower limb; W11.XXXA Fall on and from ladder, initial encounter; F17.210 Nicotine dependence, cigarettes, uncomplicated
CPT/HCPCS: 73610; 73630; 73700; 99284

== ENCOUNTER 2022-08-30 18:23 | Emergency (ER) | payer OTHER, SELFPAY ==
[2022-08-30 18:24] VITALS: BP 125/71; PULSE 70; RESP 18; TEMP 36.6; O2SAT 98; BMI 32.5
--- NOTE | 2022-08-30 18:37 | EXP.UTC ---
Discharge Plan Disposition Patient Disposition: Home, Self-Care Condition: Good Prescriptions Prescriptions: New prednisone 10 mg tablet 10 mg PO BID 3 Days Qty: 6 0RF amoxicillin-pot clavulanate 875-125 mg Tablet 1 tab PO Q12H Qty: 20 0RF Referrals Follow up/Referrals: Jorge A Hodge MD [Primary Care Provider] - See instructions Activity Restrictions/Add. Instructions Additional Instructions/Restrictions: Drink plenty of fluids. Take tylenol or ibuprofen for pain or fever. Take the medications as directed. Follow up with your regular doctor. GO TO THE ER FOR ANY WORSENING SYMPTOMS Clinical Impressions Clinical Impression: Strep throat Stand Alone Forms Stand Alone Forms: Work/School Release Instructions Patient Instructions: Strep Throat, DI for Strep Throat Discharge ED Provider: Mookie Durand [facility] General Stated complaint: sore throat, dizziness, stomach pain Mode of Arrival: Ambulatory Source of Information: Patient Limitations: No Limitations Time Seen by Provider: 08/30/22 18:37 Description of Symptoms (Recalled from Triage Doc. by RN): Patient reports sore throat, upset stomach and lightheadedness for 5 days. States that his currently has strep throat. HEENT Symptoms (Recalled from RN notes): Yes Resp Symptoms (Recalled from RN notes): No Skin Symptoms (Recalled from RN notes): No MS Symptoms (Recalled from RN notes): No Functional Status (Recalled from RN notes): wnl History of Present Illness Provider Complaint: He states that he has had a sore throat for the past 5 days. His tested positive for strep throat a few days ago. Related Data Previous Rx's Medication Instructions Recorded amoxicillin 875 mg-potassium 1 tab PO Q12H #20 tabs 08/30/22 clavulanate 125 mg tablet prednisone 10 mg tablet 10 mg PO BID 3 days #6 tabs 08/30/22 Allergies Allergy/AdvReac Type Severity Reaction Status Date / Time acetaminophen [From Vicodin] Allergy Verified 08/21/22 21:58 hydrocodone [From Vicodin] Allergy Verified 08/21/22 21:58 propoxyphene Allergy Verified 08/21/22 21:58 [From Darvocet-N] Worker's Comp Is this a Worker's Comp case?: No [facility] Disclaimer: The information contained in this section may have been updated after the patient was seen, as this information can be updated by other users. Social History Smoking Status: Current every day smoker tobacco type: cigarettes packs per day: 1 second hand exposure: No alcohol intake: never substance use type: denies use current occupational status: other Travel in the last 8 weeks: None household members: significant other and children housing: house current occupation: [employer] current occupational exposures/hazards: No ROS Obtained: Yes All systems reviewed & no additional complaints except as documented Constitutional Constitutional: Reports chills and Reports fever(s) Eyes Eyes: Denies eye discharge ENT Ears, Nose, Mouth, and Throat: Reports as per HPI Cardiovascular Cardiovascular: Denies chest pain Respiratory Respiratory: Denies chest congestion and Reports cough Gastrointestinal Gastrointestingal: Reports nausea; Denies abdominal pain, constipation, cramping, diarrhea or vomiting Musculoskeletal Musculoskeletal: Denies arthralgias Integumentary/Breasts Skin/Breast: Denies rash Neurologic Neurologic: Denies paresthesias Physical Exam General General appearance: alert and in no apparent distress Head Head exam: atraumatic, normocephalic and normal inspection Eye Eye exam: Present normal appearance, PERRL and EOMI ENT ENT exam: Present mucous membranes moist and normal external ear exam Expanded ENT Exam TM/Canal exam: Bilateral TM: erythema and bulging Nose exam: Absent sinus tenderness Mouth exam: Present normal external inspection; Absent drooling Teeth exam: Present normal inspection Thr
[2022-08-30 18:39] LABS: UTC Strep Screen (Rapid) Positive (Negative)
[2022-08-30 18:53] VITALS: BP 125/71; PULSE 70; RESP 18; TEMP 36.6; O2SAT 98
== END 2022-08-30 18:54 | disposition home or self-care (01) ==
PROVIDERS: Emergency Provider Nurse Practitioner Family; PCP Emergency Medicine
DX: J02.0 Streptococcal pharyngitis (principal); R10.9 Unspecified abdominal pain; F17.210 Nicotine dependence, cigarettes, uncomplicated
CPT/HCPCS: 87880; 99212; 99214; G0463

== ENCOUNTER 2022-09-12 21:51 | Emergency (ER) | payer OTHER, SELFPAY ==
[2022-09-12 21:54] VITALS: BP 133/87; PULSE 82; RESP 16; TEMP 36.9; O2SAT 99; BMI 33.5
--- NOTE | 2022-09-12 22:09 | XR_ITS ---
PROCEDURE INFORMATION: Exam: XR Left Wrist Exam date and time: 09/12/2022 10:04 PM Age: 42 years old Clinical indication: Patient HX: Left wrist pain for a couple weeks. No known injury. TECHNIQUE: Imaging protocol: Radiologic exam of the left wrist. Views: 3 or more views. COMPARISON: CR XR HAND LT MIN 3V 11/02/2018 9:16 PM FINDINGS: Bones/joints: No acute fracture or bone destruction. There is an old fracture of the scaphoid which is ununited with associated sclerosis similar to 11/02/2028 mean. Multiple cystic changes of the fracture site are also unchanged. Mild radiocarpal joint narrowing adjacent to the scaphoid. Extra bony density lateral to the scapho trapezium joint. Mild chondrocalcinosis of the triangular fibrocartilage. Soft tissues: Normal. IMPRESSION: 1. No acute fracture or bone destruction. 2. There is an old fracture of the scaphoid which is ununited with associated sclerosis similar to 11/02/2028 mean. Multiple cystic changes of the fracture site are also unchanged. 3. Mild radiocarpal joint narrowing adjacent to the scaphoid. 4. Extra bony density lateral to the scapho trapezium joint. 5. Mild chondrocalcinosis of the triangular fibrocartilage.
--- NOTE | 2022-09-12 22:17 | PC.NURSE ---
pt to xray
--- NOTE | 2022-09-12 22:47 | XR_ITS ---
PROCEDURE INFORMATION: Exam: XR Right Hip Exam date and time: 09/12/2022 10:53 PM Age: 42 years old Clinical indication: Hip pain; Right hip; Patient HX: Pain in RT hip x mos w swelling @ dorsal aspect of thigh. Nkt. ; Additional info: Pain, worsening chronic pain, no injury TECHNIQUE: Imaging protocol: Radiologic exam of the right hip. Views: 2 or 3 views hip with pelvis when performed. COMPARISON: CT ABDOMEN PELVIS W CON 02/15/2019 11:57 PM FINDINGS: Bones/joints: Unremarkable. No acute fracture. Soft tissues: Unremarkable. IMPRESSION: No acute findings.
--- NOTE | 2022-09-12 22:47 | PC.NURSE ---
Rounded on pt. Pt voiced no needs at this time.
--- NOTE | 2022-09-12 23:09 | HMH.EDEXTP ---
Discharge Plan Disposition Patient Disposition: Home, Self-Care Prescriptions Prescriptions: New prednisone [prednisone] 20 mg tablet 20 mg PO BID Qty: 10 0RF No Action prednisone 10 mg tablet 10 mg PO BID 3 Days Qty: 6 0RF amoxicillin-pot clavulanate 875-125 mg Tablet 1 tab PO Q12H Qty: 20 0RF Referrals Follow up/Referrals: Jorge A Hodge MD [Primary Care Provider] - See instructions Clinical Impressions Clinical Impression: Arthralgia of left wrist Instructions Patient Instructions: DI for Wrist Pain Discharge ED Provider: Naveen (ED)Jorge A Extremity Problem HPI General Chief complaint: Extremity Injury, Upper Stated complaint: left wrist pain right hip pain Time Seen by Provider: 09/12/22 23:10 Mode of Arrival: Ambulatory Source of Information: Patient and Medical Record Limitations: No Limitations Description of Symptoms (Recalled from ER Triage Doc. by RN): pt c/o lt wrist pain x 3 weeks. pt denies any trauma or accident. pt states has had this happened before and was relieved after bone marrow was inserted. History of Present Illness HPI Narrative: lt wrist pain and has hx of prev fx lt wrist requiring bone graft Complaint: extremity pain Onset (ago): day(s) Consistency: intermittent Location: left and upper extremity Quality: aching Exacerbating factors: range of motion Associated symptoms: denies other symptoms Related Data Previous Rx's Medication Instructions Recorded amoxicillin 875 mg-potassium 1 tab PO Q12H #20 tabs 08/30/22 clavulanate 125 mg tablet prednisone 10 mg tablet 10 mg PO BID 3 days #6 tabs 08/30/22 prednisone 20 mg tablet 20 mg PO BID #10 tabs 09/13/22 Allergies Allergy/AdvReac Type Severity Reaction Status Date / Time acetaminophen [From Vicodin] Allergy Verified 08/21/22 21:58 hydrocodone [From Vicodin] Allergy Verified 08/21/22 21:58 propoxyphene Allergy Verified 08/21/22 21:58 [From Darvocet-N] [facility] Disclaimer: The information contained in this section may have been updated after the patient was seen, as this information can be updated by other users. Social History Smoking Status: Current every day smoker tobacco type: cigarettes packs per day: 1 second hand exposure: No alcohol intake: never substance use type: denies use current occupational status: other Travel in the last 8 weeks: None household members: significant other and children housing: house current occupation: [employer] current occupational exposures/hazards: No ROS Obtained: Yes All systems reviewed & no additional complaints except as documented Physical Exam General General appearance: alert Head Head exam: normocephalic Eye Eye exam: Present PERRL and EOMI ENT ENT exam: Present mucous membranes moist Neck Neck exam: Present trachea midline Respiratory Respiratory exam: Present normal lung sounds bilaterally; Absent respiratory distress Cardiovascular Cardiovascular exam: Present regular rate Expanded Upper Extremity Exam Left: Forearm/Wrist exam: Present tenderness, swelling and tenderness over anatomical snuff box; Absent full ROM or erythema Neuromotor exam: Normal wrist extension Vascular exam: Normal radial pulse Neurological Exam Neurological exam: Present alert, oriented X3 and CN II-XII intact; Absent motor sensory deficit Psychiatric Psychiatric exam: Present normal affect Skin Skin exam: Absent rash Medical Decision Making Medical Records Medical records reviewed: Yes I reviewed the patient's medical records. Ye Inquiry Pt receiving controlled substance: No Vital Signs: 09/12/22 21:54 09/12/22 23:36 09/12/22 23:36 Temperature 98.4 F 98 F Temperature Source Oral Pulse Rate 85 Pulse Rate [Right] 82 Respiratory Rate 16 20 Blood Pressure 132/80 Blood Pressure [Right Arm] 133/87 Blood Pressure Mean [Rig
--- NOTE | 2022-09-12 23:30 | PC.NURSE ---
Pt educated to follow up with PCP office this week to review blood work and they will get the referral to hand specialist. Pt stated his understanding.
[2022-09-12 23:36] VITALS: BP 132/80; PULSE 85; RESP 20; TEMP 36.6; O2SAT 98
[2022-09-12 23:38] LABS: Basophils % 0.5 % (0.1-2.0); Eosinophils # 0.2 K/mm3 (0.0-0.4); Eosinophils % 2.9 % (0.1-12.0); Hematocrit 41.8 % (42.0-52.0); Hemoglobin 14.1 g/dL (14.1-18.0); Lymphocytes # 2.5 K/mm3 (0.7-4.5); Mean Corpuscular HGB Conc 33.7 g/dL (31.8-35.4); Mean Corpuscular Hemoglobin 29.7 pg (27.0-31.2); Mean Corpuscular Volume 88.1 fl (80-94); Mean Platelet Volume 8.2 fl (7.4-10.4); Monocytes # 0.5 K/mm3 (0.1-1.0); Monocytes % 6.6 % (1.7-9.3); Neutrophils # 4.6 K/mm3 (1.8-7.8); Platelet Count 197 K/mm3 (142-424); Red Blood Count 4.74 M/mm3 (4.60-6.20); White Blood Count 7.8 K/mm3 (4.8-10.8)
[2022-09-12 23:41] LABS: Alanine Aminotransferase 28 U/L (12-78); Albumin Level 4.4 g/dl (3.5-5.0); Albumin/Globulin Ratio 1.6 (1.1-1.8); Alkaline Phosphatase 82 U/L (38-126); Aspartate Amino Transferase 37 U/L (17-59); Bilirubin,Total 0.3 mg/dl (0.2-1.3); Blood Urea Nitrogen 15 mg/dl (9-20); Calcium 9.1 mg/dl (8.4-10.2); Carbon Dioxide 27 mmol/L (22.0-30.0); Chloride 107 mmol/L (98-107); Creatinine Clearance Estimated 185 mL/min (50-200); Estimated Glomerular Filt Rate 106 ml/min (>60); GFR (African American) 128 ML/MIN (>60); Globulin 2.7 g/dL (1.3-3.2); Glucose 93 mg/dl (74-100); Sodium 141 mmol/L (136-145); Total Protein,Serum 7.1 g/dl (6.3-8.2); Uric Acid 6.1 mg/dl (3.5-8.5)
[2022-09-12 23:46] LABS: C-Reactive Protein 2.5 mg/L (0-4)
[2022-09-13] LABS: Procalcitonin 0.048 ng/mL (0.0-2.0)
[2022-09-13 00:19] LABS: Erythrocyte Sedimentation Rate 16 mm/hr (0-15)
== END 2022-09-12 23:36 | disposition home or self-care (01) ==
PROVIDERS: Emergency Provider Emergency Medicine; PCP Emergency Medicine
DX: M25.532 Pain in left wrist (principal); F17.210 Nicotine dependence, cigarettes, uncomplicated
CPT/HCPCS: 73110; 73502; 80053; 84145; 84550; 85025; 85651; 86140; 99284; 99285

== ENCOUNTER → 2022-09-29 14:22 | Outpatient (CLI) | payer OTHER, SELFPAY ==
--- NOTE | 2022-09-29 14:45 | XR_ITS ---
FINAL REPORT CLINICAL HISTORY: pre op. smoker, allergies COMPARISON: FINDINGS: TWO VIEW CHEST The heart size is normal. The mediastinum is normal. The lungs are clear. There is no pneumothorax. IMPRESSION: No acute cardiopulmonary process. Reviewed, Interpreted and Dictated by Mitchell Pineda MD Transcribed by Joselin Carlson Authenticated and [facility]
--- NOTE | 2022-09-29 14:45 | XR_ITS ---
FINAL REPORT CLINICAL HISTORY: rt ankle pain COMPARISON: 08/21/2022 FINDINGS: RIGHT ANKLE SERIES Three views of the right ankle were obtained. There is an old avulsion fracture along the lateral talus similar from the prior exam. There are small chronic avulsion fractures along the the lateral malleolus. There is no acute fracture. There are mild degenerative changes. There is no soft tissue abnormality. IMPRESSION: No acute findings or significant change. Reviewed, Interpreted and Dictated by Mitchell Pineda MD Transcribed by Joselin Carlson Authenticated and [facility]
[2022-09-29 15:24] LABS: Basophils % 0.3 % (0.1-2.0); Eosinophils # 0.1 K/mm3 (0.0-0.4); Eosinophils % 0.7 % (0.1-12.0); Hematocrit 47.7 % (42.0-52.0); Hemoglobin 15.4 g/dL (14.1-18.0); Lymphocytes # 1.8 K/mm3 (0.7-4.5); Lymphocytes % 18.9 % (10-50); Mean Corpuscular HGB Conc 32.4 g/dL (31.8-35.4); Mean Corpuscular Hemoglobin 29.6 pg (27.0-31.2); Mean Corpuscular Volume 91.4 fl (80-94); Mean Platelet Volume 8.5 fl (7.4-10.4); Monocytes # 0.5 K/mm3 (0.1-1.0); Monocytes % 5.6 % (1.7-9.3); Neutrophils # 7.2 K/mm3 (1.8-7.8); Neutrophils % 74.5 % (37.0-80.0); Platelet Count 221 K/mm3 (142-424); Red Blood Count 5.21 M/mm3 (4.60-6.20); Red Cell Distribution Width 14.1 % (11.5-17.5); White Blood Count 9.7 K/mm3 (4.8-10.8)
[2022-09-29 16:26] LABS: Chloride 104 mmol/L (98-107); Potassium 4.1 mmoL/L (3.5-5.1); Sodium 142 mmol/L (136-145)
[2022-09-29 16:28] LABS: Blood Urea Nitrogen 11 mg/dl (9-20); Estimated Glomerular Filt Rate 106 ml/min (>60); GFR (African American) 128 ML/MIN (>60)
[2022-09-29 16:29] LABS: Alanine Aminotransferase 26 U/L (12-78); Albumin Level 4.8 g/dl (3.5-5.0); Albumin/Globulin Ratio 1.7 (1.1-1.8); Alkaline Phosphatase 97 U/L (38-126); Anion Gap 12.1 mEq/L (5-15); Aspartate Amino Transferase 36 U/L (17-59); Bilirubin,Total 0.5 mg/dl (0.2-1.3); Calcium 9.9 mg/dl (8.4-10.2); Carbon Dioxide 30 mmol/L (22.0-30.0); Globulin 2.9 g/dL (1.3-3.2); Glucose 93 mg/dl (74-100); Total Protein,Serum 7.7 g/dl (6.3-8.2)
== END ==
PROVIDERS: PCP Emergency Medicine; Visit Provider Orthopaedic Surgery
DX: Z01.818 Encounter for other preprocedural examination (principal); M25.571 Pain in right ankle and joints of right foot
CPT/HCPCS: 36415; 71046; 73610; 80053; 85025

== ENCOUNTER 2022-10-10 09:32 | Day surgery (SDC) | payer OTHER, SELFPAY ==
[2022-10-10] VITALS (9 sets, daily range): BP systolic 124–141; BP diastolic 66–94; PULSE 58–75; RESP 14–18; TEMP 36.2–36.3; O2SAT 4–98; BMI 33.5
--- NOTE | 2022-10-10 10:02 | ECG_ITS ---
APPROVED REPORT Exam: Resting ECG HR:72 bpm ECG Measurements Heart Rate 72 AXES CO 135 P 69 QRSd 100 QRS 54 QT 436 T 40 QTc 460 Conclusion SINUS RHYTHM NORMAL ECG UNCONFIRMED REPORT Electronically signed by : Kaushik Gonzalez MD 10/11/2022 20:50:07
--- NOTE | 2022-10-10 10:07 | EXP.ANES.CKL ---
[facility] Disclaimer: The information contained in this section may have been updated after the patient was seen, as this information can be updated by other users. Medical History No significant past medical history Surgical History H/O left wrist surgery History of tonsillectomy Family History Other Family history of diabetes mellitus type II Social History Smoking Status: Current every day smoker tobacco type: cigarettes packs per day: 1 second hand exposure: No alcohol intake: never substance use type: denies use current occupational status: unemployed Travel in the last 8 weeks: None household members: significant other and children housing: house current occupation: [employer] current occupational exposures/hazards: No [facility] Anesthesia Checklist Patient Identification Patient Identification: Arm Band and Verbal (Name & ) Structural Data Admitted From: Home Planned Operative Procedure/s: Removal of ganglion cyst on ankle Consent for Planned Operative Procedure(s) Verified: Yes NPO Status Verified Time NPO: 00:00 Additional verifications Anesthesia Reactions: No Hx Blood Transfusions: No Blood Transfusion Reaction: No Airway Assessment Mallampati Score:: Class II C-Spine Mobility Assessed: Yes TMJ Mobility Assessed: Yes Dentition: Edentulous Neurological Assessment Level of Consciousness: Awake Hx Seizures: No Numbness or tingling in extremities: No Anesthesia Plan Anesthesia Risk discussed: Yes Anesthesia Plan: Verified ASA Class: II Anesthesia Type: General
--- NOTE | 2022-10-10 11:33 | P.PNANES_ITS ---
[facility] Anesthesia Record Part I Anesthesia Record I Intake, IV Amount: 750 Hydration: Adequate Estimated blood loss (mL): 5 Urine output (mL): 0 Blood Pressure: 125/66 SaO2: 96 Pulse Rate: 58 Airway Patency: Patent Respiratory Rate: 16 Temperature: 97.1 F Pain scale (0-10): 0 Nausea: No Vomiting: No Patient is:: Drowsy and Oral/Nasal airway Stable to PACU at:: 11:34
--- NOTE | 2022-10-10 11:35 | P.OP_ITS ---
Date of procedure: 10/10/22 Pre-op Diagnosis:: Right ankle ganglion cyst Post-op Diagnosis:: Safe Procedure performed:: Excision ganglion cyst right ankle 7 cm x 3 cm Surgeon:: Vasu Lowry DO OXIDE FURNACE TENDER:: Gilbert Miller Anesthesia: GETA Estimated blood loss (mL): 0 Operative findings:: Ganglion cyst Operative note:: Patient was identified preoperatively. Right ankle marked with yes my initials. Transferred operative suite. Placed upon operating bed. General anesthesia ministered. Airway secured. Right lower extremity prepped and draped normal sterile fashion. Once prepped and draped final operative timeout performed to identify proper patient procedure and extremity. Everyone involved the case agreed. No counter indications to beginning. Did receive preoperative antibiotics. Marking pen was used to hero plan incision over the large ganglion cyst at the lateral ankle. Esmarch was used to exsanguinate the extremity pneumatic tourniquet inflated to 300 mmHg. Skin knife was used to incise through skin. Careful dissection is taken down bluntly with scissors to spread around the large 7 cm x 3 cm ganglion cyst. Careful dissection was taken down bluntly with the scissors the cyst was then excised. There was normal-appearing gelatinous like fluid consistent with ganglion cyst present cyst wall was excised and passed off for pathology. Copious irrigation of the wound was performed. Skin was closed with nylon stitch. Sterile dressing was placed and tourniquet deflated patient waken anesthesia taken recovery in stable condition. Condition: stable Disposition: PACU Complications:: None apparent
--- NOTE | 2022-10-10 12:34 | SUR.PHASEII ---
pt educated on non weight bearing status. at first he tried to deny crutches but talked patient into accepting them. pt then proceeded to stand up and put weight on foot and then complained of pain and became angry stating they gave me morphine for pain earlier , pain is 8/10. dr. douglas notified and gave a verbal order for percocet 5mg x1 dose. pharmacy called about order, order also faxed to pharmacy. pt verified that he has taken perc 5mg before and done fine with it. medication given. patient calmed stating it didn't hurt at all until i stood up on it re educated patient on discharge instructions. pt verbalized understanding.
--- NOTE | 2022-10-10 13:29 | P.PNANES_ITS ---
[facility] Anesthesia Record Part II Anesthesia Record Part II Discharge Time: 12:04 Destination: Surgical Day Care (OP Surgery) PACU nurse assessment reviewed?: Yes Patient Condition:: Good Anesthesia Complications:: None Swallowing reflex intact?: Yes Airway Patency: Patent Cyanosis?: No Blood Pressure: 137/88 SaO2: 98 Respiratory Rate: 16 Pulse Rate: 61 Temperature: 97.2 F Mental Status: Alert & Oriented Pain level:: 5 Nausea and/or vomitting:: None Intake, IV Amount: 0 Hydration: Adequate
== END 2022-10-10 12:44 | disposition home or self-care (01) ==
PROVIDERS: PCP Emergency Medicine; Visit Provider Orthopaedic Surgery
PROC: (CPT 27630; principal; 2022-10-10 11:15)
DX: M67.471 Ganglion, right ankle and foot (principal)
CPT/HCPCS: 27630; 93005; 96374; J0690; J2405

== ENCOUNTER 2022-10-17 20:33 | Emergency (ER) | payer OTHER, SELFPAY ==
[2022-10-17 20:35] VITALS: BP 106/63; PULSE 66; RESP 16; TEMP 36.7; O2SAT 96; BMI 32.5
[2022-10-17 22:06] VITALS: BP 130/70
--- NOTE | 2022-10-17 22:32 | HMH.EDGENADL ---
Discharge Plan Disposition Patient Disposition: Home, Self-Care Condition: Good Prescriptions Prescriptions: New cephalexin 500 mg capsule 500 mg PO Q6H 7 Days Qty: 28 0RF Referrals Follow up/Referrals: Jorge A Hodge MD [Primary Care Provider] - See instructions Activity Restrictions/Add. Instructions Additional Instructions/Restrictions: Please follow-up with your surgeon for wound check, as discussed, we will not draw labs per your request. If you change your mind please return to the emergency department, return with any new or worsening symptoms. Clinical Impressions Clinical Impression: Cellulitis Qualifiers: Site of cellulitis: extremity Site of cellulitis of extremity: lower extremity Laterality: right Qualified Code(s): L03.115 - Cellulitis of right lower limb Instructions Patient Instructions: Cellulitis Discharge ED Provider: Vivek Doyle Adult HPI General Chief complaint: Wound/Laceration Stated complaint: wants stitches removed from surgery [id number] Time Seen by Provider: 10/17/22 22:32 Mode of Arrival: Ambulatory Source of Information: Patient Limitations: No Limitations Description of Symptoms (Recalled from ER Triage Doc. by RN): He presented for suture removal. States Dr. Lowry removed a cyst from his right ankle on last Monday. He had 3 sutures and he states he just removed the DSG that was covering it yesterday. Bilateral feet are covered in dried dirt. Cleansed over suture site with alcohol prior to removal. Upon removing 3rd suture, wound dehisced, and purulent drainage present. History of Present Illness HPI narrative: Patient presents for evaluation of small amount of purulent drainage after recent ganglion cyst removal, initially presented for stitches removal however purulent drainage was reportedly noted from surgical incision site, patient denies any systemic symptoms, denies distal numbness or tingling, no previous therapies, no recent antibiotics. No new injury. Mild associated pain localized at that site. Nonradiating. Related Data Previous Rx's Medication Instructions Recorded cephalexin 500 mg capsule 500 mg PO Q6H 7 days #28 caps 10/17/22 Allergies Allergy/AdvReac Type Severity Reaction Status Date / Time acetaminophen [From Vicodin] Allergy Verified 10/17/22 21:20 hydrocodone [From Vicodin] Allergy Verified 10/17/22 21:20 propoxyphene Allergy Verified 10/17/22 21:20 [From Darvocet-N] [facility] Disclaimer: The information contained in this section may have been updated after the patient was seen, as this information can be updated by other users. Medical History No significant past medical history Surgical History H/O left wrist surgery History of tonsillectomy Family History Other Family history of diabetes mellitus type II Social History Smoking Status: Current every day smoker tobacco type: cigarettes packs per day: 1 second hand exposure: No alcohol intake: never substance use type: denies use current occupational status: unemployed Travel in the last 8 weeks: None household members: significant other and children housing: house current occupation: [employer] current occupational exposures/hazards: No ROS Obtained: Yes Systems reviewed as appropriate & no additional complaints except as documented Physical Exam General General appearance: alert and in no apparent distress Head Head exam: atraumatic and normocephalic Eye Eye exam: Present normal appearance Neck Neck exam: Present normal inspection Chest Chest inspection: Present normal inspection and symmetric chest wall rise Respiratory Respiratory exam: Present normal lung sounds bilaterally; Absent respiratory distress Ca
--- NOTE | 2022-10-17 22:36 | XR_ITS ---
PROCEDURE INFORMATION: Exam: XR Right Ankle Exam date and time: 10/17/2022 10:38 PM Age: 42 years old Clinical indication: Other: Wound dehiscence; Prior surgery; Surgery date: 3-7 days post-operative; Surgery type: Cyst removal; Additional info: Concern for postop infection, poss osteomyelitis TECHNIQUE: Imaging protocol: Radiologic exam of the right ankle. Views: 3 or more views. COMPARISON: CR XR ANKLE RT MIN 3V 29/09/2022 15:05 FINDINGS: Bones/joints: Small calcaneus enthesophytes. Tiny well corticated bony structure adjacent to the lateral talar process, unchanged. Soft tissues: Mild soft tissue swelling overlying the lateral malleolus. IMPRESSION: Mild soft tissue swelling overlying the lateral malleolus. Please exclude infection. No bony destruction or erosions to correlate with osteomyelitis.
--- NOTE | 2022-10-17 22:43 | PC.NURSE ---
RAD at [facility]
--- NOTE | 2022-10-17 23:09 | PC.NURSE ---
Chantelle from lab reports pt will not allow her to draw blood until the Dr returns to talk to him.
[2022-10-17 23:24] VITALS: BP 0/0; PULSE 0; RESP 0; TEMP -17.7; TEMP 0
== END 2022-10-17 23:26 | disposition home or self-care (01) ==
PROVIDERS: Emergency Provider Emergency Medicine; PCP Emergency Medicine
DX: T81.49XA Infection following a procedure, other surgical site, initial encounter (principal); L03.115 Cellulitis of right lower limb; Y83.8 Other surgical procedures as the cause of abnormal reaction of the patient, or of later complication, without mention of misadventure at the time of the procedure; F17.210 Nicotine dependence, cigarettes, uncomplicated
CPT/HCPCS: 73610; 99283

== ENCOUNTER 2022-10-30 20:00 | Emergency (ER) | payer OTHER, SELFPAY ==
[2022-10-30 20:11] VITALS: BP 165/102; PULSE 87; RESP 14; TEMP 36.6; O2SAT 98; BMI 32.5
--- NOTE | 2022-10-30 20:31 | PC.NURSE ---
Dr. Lowery at [facility]
--- NOTE | 2022-10-30 20:39 | HMH.EDGENADL ---
Discharge Plan Disposition Patient Disposition: Home, Self-Care Condition: Good Prescriptions Prescriptions: New ondansetron 4 mg tablet,disintegrating 4 mg PO Q8H PRN (Reason: nausea and vomiting) 4 Days Qty: 12 0RF No Action cephalexin 500 mg capsule 500 mg PO Q6H 7 Days Qty: 28 0RF Referrals Follow up/Referrals: Jorge A Hodge MD [Primary Care Provider] - See instructions Activity Restrictions/Add. Instructions Additional Instructions/Restrictions: You were evaluated in the emergency department today. Please make sure that you are hydrating at home. on site construction superintendent your prescription for Zofran and take as needed for symptoms. Continue taking your antibiotic for your leg infection. Follow-up with your primary care provider over the next 3 days to ensure that you are still doing well. Return to the emergency department for any new or worsening symptoms. Clinical Impressions Clinical Impression: Diarrhea, Nausea Instructions Patient Instructions: DI for Diarrhea and Traveler's Diarrhea -- Adult, DI for Nausea -- Adult Discharge ED Provider: Yary Lowery General Adult HPI General Chief complaint: Nausea/Vomiting/Diarrhea Stated complaint: infected ankle, vomiting, diarrhea Time Seen by Provider: 10/30/22 20:28 Mode of Arrival: Family Vehicle Source of Information: Patient Limitations: No Limitations Description of Symptoms (Recalled from ER Triage Doc. by RN): n/v/d for the past couple of days; patient reports recent history including currently being on clindamycin 300mg qid for an infected area on his right outer ankle. afebrile. no covid contact. denies dyspnea. denies angina History of Present Illness HPI narrative: This patient is a 42-year-old male with a history of cellulitis of the right ankle after ganglion cyst removal presenting to the emergency department for evaluation with concern for several days of nausea and diarrhea. He is having 3-4 episodes of loose watery diarrhea in a day. He states that he has been on clindamycin 300 mg 4 times daily for approximately 2 weeks now. He denies any fevers, abdominal pain, hematochezia, melena, or other concerns. He states that he thinks he might have COVID or flu. He states that his wound/leg is healing well with no new redness, warmth, pus draining, or other concerns for infection. Related Data Previous Rx's Medication Instructions Recorded cephalexin 500 mg capsule 500 mg PO Q6H 7 days #28 caps 10/17/22 ondansetron 4 mg disintegrating 4 mg PO Q8H PRN nausea and 10/30/22 tablet vomiting 4 days #12 tabs Allergies Allergy/AdvReac Type Severity Reaction Status Date / Time hydrocodone [From Vicodin] Allergy Verified 10/25/22 13:40 propoxyphene Allergy Verified 10/25/22 13:40 [From Darvocet-N] [facility] Disclaimer: The information contained in this section may have been updated after the patient was seen, as this information can be updated by other users. Medical History No significant past medical history Surgical History H/O left wrist surgery History of tonsillectomy Family History Other Family history of diabetes mellitus type II Social History Smoking Status: Unknown if ever smoked second hand exposure: No alcohol intake: never substance use type: denies use current occupational status: unemployed Travel in the last 8 weeks: None household members: significant other and children housing: house current occupation: [employer] current occupational exposures/hazards: No ROS Obtained: Yes All systems reviewed & no additional complaints except as documented Physical Exam General General appearance: alert and in no apparent distress Head Head exam: atraumatic and normocephalic E
[2022-10-30 20:47] LABS: Chloride 103 mmol/L (98-107); Potassium 3.5 mmoL/L (3.5-5.1); Sodium 141 mmol/L (136-145)
[2022-10-30 20:50] LABS: Alanine Aminotransferase 41 U/L (12-78); Albumin Level 4.6 g/dl (3.5-5.0); Albumin/Globulin Ratio 1.4 (1.1-1.8); Alkaline Phosphatase 71 U/L (38-126); Anion Gap 18.5 mEq/L (5-15); Aspartate Amino Transferase 42 U/L (17-59); Basophils % 0.3 % (0.1-2.0); Bilirubin,Total 0.5 mg/dl (0.2-1.3); Blood Urea Nitrogen 12 mg/dl (9-20); Calcium 9.8 mg/dl (8.4-10.2); Carbon Dioxide 23 mmol/L (22.0-30.0); Creatinine Clearance Estimated 185 mL/min (50-200); Eosinophils % 0.3 % (0.1-12.0); Estimated Glomerular Filt Rate 106 ml/min (>60); GFR (African American) 128 ML/MIN (>60); Globulin 3.2 g/dL (1.3-3.2); Glucose 108 mg/dl (74-100); Hemoglobin 15.7 g/dL (14.1-18.0); Lipase 61 U/L (23-300); Lymphocytes # 1.9 K/mm3 (0.7-4.5); Lymphocytes % 15.1 % (10-50); Mean Corpuscular HGB Conc 33.5 g/dL (31.8-35.4); Mean Corpuscular Hemoglobin 29.7 pg (27.0-31.2); Mean Corpuscular Volume 88.7 fl (80-94); Mean Platelet Volume 8.4 fl (7.4-10.4); Monocytes # 0.7 K/mm3 (0.1-1.0); Monocytes % 5.4 % (1.7-9.3); Neutrophils # 9.9 K/mm3 (1.8-7.8); Neutrophils % 78.9 % (37.0-80.0); Platelet Count 219 K/mm3 (142-424); Red Cell Distribution Width 13.7 % (11.5-17.5); Total Protein,Serum 7.8 g/dl (6.3-8.2); White Blood Count 12.5 K/mm3 (4.8-10.8)
[2022-10-30 21:02] LABS: Coronavirus 19, PCR Not Detected (NotDetected); Influenza A, PCR Not Detected (NotDetected); Influenza B, PCR Not Detected (NotDetected)
[2022-10-30 21:21] VITALS: BP 118/72; PULSE 75; RESP 16; TEMP 36.6; O2SAT 99
== END 2022-10-30 21:31 | disposition home or self-care (01) ==
PROVIDERS: Emergency Provider Emergency Medicine; PCP Emergency Medicine
DX: R11.2 Nausea with vomiting, unspecified (principal); R19.7 Diarrhea, unspecified
CPT/HCPCS: 80053; 83690; 85025; 87636; 99285

== ENCOUNTER 2022-12-28 22:24 | Emergency (ER) | payer OTHER, SELFPAY ==
[2022-12-28 22:25] VITALS: BP 148/85; PULSE 71; RESP 18; TEMP 36.6; O2SAT 99; BMI 29.0
--- NOTE | 2022-12-28 22:46 | HMH.EDGENADL ---
Discharge Plan Disposition Patient Disposition: Home, Self-Care Prescriptions Prescriptions: No Action meloxicam 15 mg tablet 15 mg PO DAILY Qty: 15 0RF oxycodone-acetaminophen [Percocet] 5-325 mg tablet 1 tab PO Q8H Qty: 30 0RF Referrals Follow up/Referrals: Jorge A Hodge MD [Primary Care Provider] - See instructions Clinical Impressions Clinical Impression: Visit for wound check Instructions Patient Instructions: DI for Skin Abscess Discharge ED Provider: Trav Thorne General Adult HPI General Chief complaint: Skin/Abscess/Foreign Body Stated complaint: possibly infected suture Time Seen by Provider: 12/28/22 22:27 Mode of Arrival: Ambulatory Source of Information: Patient Limitations: No Limitations Description of Symptoms (Recalled from ER Triage Doc. by RN): pt had 14 tea placed in head after falling off ladder last week in [facility]. tonight he felt one pop loose and was worried about it being messed up or infected History of Present Illness HPI narrative: 42-year-old male with history of recent scalp injury presenting with concern for staple and laceration abnormality. Patient states that he started having a feeling of it being wet near the laceration site. With touch to the area, it would not actually be wet, but had a feeling of being wet. No fevers, chills, redness, or drainage. Related Data Previous Rx's Medication Instructions Recorded meloxicam 15 mg tablet 15 mg PO DAILY #15 tabs 12/23/22 oxycodone-acetaminophen 5 mg-325 1 tab PO Q8H pain #30 tabs 12/23/22 mg tablet (Percocet) Allergies Allergy/AdvReac Type Severity Reaction Status Date / Time hydrocodone [From Vicodin] Allergy Verified 12/23/22 15:38 propoxyphene Allergy Verified 12/23/22 15:38 [From Darvocet-N] [facility] Disclaimer: The information contained in this section may have been updated after the patient was seen, as this information can be updated by other users. Medical History No significant past medical history Surgical History H/O left wrist surgery History of tonsillectomy Family History Other Family history of diabetes mellitus type II Social History Smoking Status: Current every day smoker tobacco type: cigarettes packs per day: 1 second hand exposure: No alcohol intake: never substance use type: denies use current occupational status: unemployed Travel in the last 8 weeks: None household members: significant other and children housing: house current occupation: [employer] current occupational exposures/hazards: No ROS Obtained: Yes All systems reviewed & no additional complaints except as documented Physical Exam General General appearance: alert and in no apparent distress Head Head exam: normocephalic and other (Multiple tea overlying centimeter laceration left-sided parietal scalp. No evidence of fluctuance, erythema, drainage, or other abnormalities.) Eye Eye exam: Present normal appearance, PERRL and EOMI ENT ENT exam: Present mucous membranes moist Neck Neck exam: Present normal inspection, full ROM and trachea midline Respiratory Respiratory exam: Absent respiratory distress, wheezes, stridor, accessory muscle use or prolonged expiratory phase Cardiovascular Cardiovascular exam: Present normal rhythm Abdominal Exam Abdominal exam: Present soft; Absent distention, tenderness, guarding, rebound, rigidity or normal bowel sounds Extremities Exam Extremities exam: Absent edema Neurological Exam Neurological exam: Present alert, oriented X3, CN II-XII intact and normal gait; Absent motor sensory deficit Skin Skin exam: Present warm and dry; Absent diaphoresis or erythema Medical Decision Making Medical Records Medical r
--- NOTE | 2022-12-28 22:47 | PC.NURSE ---
PER ER MD nursing staff is to give patient a staple remover to go home with and patient will be removing his own tea at home in a few days. ER charge nurse made aware
[2022-12-28 22:51] VITALS: BP 145/78; PULSE 90; RESP 20; TEMP 36.7; O2SAT 97
== END 2022-12-28 22:52 | disposition home or self-care (01) ==
PROVIDERS: Emergency Provider Emergency Medicine; PCP Emergency Medicine
DX: Z51.89 Encounter for other specified aftercare (principal); S01.01XA Laceration without foreign body of scalp, initial encounter; X58.XXXA Exposure to other specified factors, initial encounter
CPT/HCPCS: 99281

== ENCOUNTER 2023-02-26 12:19 | Emergency (ER) | payer OTHER, SELFPAY ==
[2023-02-26 12:25] VITALS: BP 137/61; PULSE 64; RESP 20; TEMP 36.6; O2SAT 97; BMI 29.2
--- NOTE | 2023-02-26 12:33 | EXP.UTC ---
Discharge Plan Disposition Patient Disposition: Home, Self-Care Condition: Good Prescriptions Prescriptions: New oseltamivir [Tamiflu] 75 mg capsule 75 mg PO Q12H 5 Days Qty: 10 0RF No Action meloxicam 15 mg tablet 15 mg PO DAILY Qty: 15 0RF oxycodone-acetaminophen [Percocet] 5-325 mg tablet 1 tab PO Q8H Qty: 30 0RF Referrals Follow up/Referrals: Jose Alejandro Beasley DO [Primary Care Provider] - See instructions Activity Restrictions/Add. Instructions Additional Instructions/Restrictions: Start Tamiflu today if you are going to take it. Discussed risk and possible benefits. If you decide not to take Tamiflu Over the counter cough and cold medications may help Lots of rest Increase Fluids water, Gatorade, powerade, pedialyte,if infant/toddler/child Alternate Tylenol and / or ibuprofen as discussed for fever, aches, chills Follow up IMMEDIATELY with your family doctor for new or worsening Symptoms OR no noticeable improvement over the next 48-72 hours, 911 for difficulty or breathing You or your child area contagious until no fever, aches, chills for 24 hours with medication for symptoms Help Prevent the spread of influenza: ?Wash your hands often. Use soap and water. Wash your hands after you use the bathroom, change a child's diapers, or sneeze. Wash your hands before you prepare or eat food. Use gel hand cleanser that has 60% alcohol, when soap and water are not available. Do not touch your eyes, nose, or mouth unless you have washed your hands first. Cover your mouth when you sneeze or cough. Cough into a tissue or the bend of your arm. If you use a tissue, throw it away immediately and wash your hands. Clean shared items with a germ-killing pigs feet cleaner. Clean table surfaces, doorknobs, and light switches. Do not share towels, silverware, and dishes with people who are sick. Wash bed sheets, towels, silverware, and dishes with soap and water. Wear a mask over your mouth and nose if you are sick. The face mask may help protect others from becoming infected with the flu. Wear the mask when in common areas of your home or if you seek care with a healthcare provider. Stay away from others if you are sick. Stay at home until 24 hours after your fever and symptoms are gone. Clinical Impressions Clinical Impression: Influenza Stand Alone Forms Stand Alone Forms: Work/School Release Instructions Patient Instructions: DI for Influenza -- Adult Discharge ED Provider: Aniyah Leo [facility] [place] H[place] General Stated complaint: dizzy, body aches, cough Time Seen by Provider: 02/26/23 12:33 History of Present Illness Provider Complaint: Patient states that his son tested positive for the flu yesterday and then last night he started with body aches, chills and over all not feeling well so he came in to get tested for the flu thinks he may have it now Related Data Previous Rx's Medication Instructions Recorded meloxicam 15 mg tablet 15 mg PO DAILY #15 tabs 12/23/22 oxycodone-acetaminophen 5 mg-325 1 tab PO Q8H pain #30 tabs 12/23/22 mg tablet (Percocet) oseltamivir 75 mg capsule (Tamiflu) 75 mg PO Q12H 5 days #10 caps 02/26/23 Allergies Allergy/AdvReac Type Severity Reaction Status Date / Time hydrocodone [From Vicodin] Allergy Verified 01/02/23 13:38 propoxyphene Allergy Verified 01/02/23 13:38 [From Darvocet-N] [facility] Disclaimer: The information contained in this section may have been updated after the patient was seen, as this information can be updated by other users. Medical History No significant past medical history Surgical History H/O left wrist surgery History of tonsillectomy Family History (Reviewed 12/23/22
[2023-02-26 12:38] LABS: UTC Influenza A Antigen Negative (Negative)
[2023-02-26 12:39] LABS: UTC Influenza B Antigen Positive (Negative)
[2023-02-26 12:42] VITALS: BP 137/61; PULSE 64; RESP 20; TEMP 36.6; O2SAT 97
== END 2023-02-26 12:43 | disposition home or self-care (01) ==
PROVIDERS: Emergency Provider Nurse Practitioner; PCP Internal Medicine
DX: J10.1 Influenza due to other identified influenza virus with other respiratory manifestations (principal); R51.9 Headache, unspecified; R50.9 Fever, unspecified; R05.9 Cough, unspecified; R42 Dizziness and giddiness; R09.81 Nasal congestion; M79.18 Myalgia, other site; F17.210 Nicotine dependence, cigarettes, uncomplicated
CPT/HCPCS: 87804; 99212; 99214; G0463

== ENCOUNTER 2023-04-15 14:24 | Emergency (ER) | payer OTHER, SELFPAY ==
[2023-04-15 14:26] VITALS: BP 113/68; PULSE 63; RESP 20; TEMP 36.8; O2SAT 97; BMI 32.5
[2023-04-15 15:12] LABS: Coronavirus 19, PCR Not Detected (NotDetected); Influenza A, PCR Not Detected (NotDetected); Influenza B, PCR Not Detected (NotDetected)
--- NOTE | 2023-04-15 15:57 | PC.NURSE ---
Dr. Parker at [facility] for pt eval
--- NOTE | 2023-04-15 16:17 | PC.NURSE ---
DR SU AT BEDSIDE
--- NOTE | 2023-04-15 16:21 | HMH.EDGENADL ---
Discharge Plan Disposition Patient Disposition: Home, Self-Care Prescriptions Prescriptions: New stqklmhnelvxwjb-pxzevpobm-QV [Bromfed DM] 2-30-10 mg/5 mL syrup 5 ml PO Q6H PRN (Reason: cold symptoms) Qty: 118 0RF No Action meloxicam 15 mg tablet 15 mg PO DAILY Qty: 15 0RF oxycodone-acetaminophen [Percocet] 5-325 mg tablet 1 tab PO Q8H Qty: 30 0RF oseltamivir [Tamiflu] 75 mg capsule 75 mg PO Q12H 5 Days Qty: 10 0RF Referrals Follow up/Referrals: Jose Alejandro Beasley DO [Primary Care Provider] - See instructions Activity Restrictions/Add. Instructions Additional Instructions/Restrictions: At this time it was felt you are safe to be discharged home. If new or worsening symptoms please do not hesitate to return the emergency department. If symptoms persist please follow-up with your family doctor as you are able. Please take your medication as prescribed. Clinical Impressions Clinical Impression: Upper respiratory disease Discharge ED Provider: Harriet Dale General Adult HPI General Chief complaint: Upper Respiratory Infection Stated complaint: cough nausea ba Time Seen by Provider: 04/15/23 16:14 Mode of Arrival: Ambulatory Source of Information: Patient Limitations: No Limitations Description of Symptoms (Recalled from ER Triage Doc. by RN): body aches and fatigue over the last 2-3 days pt states it feels like the pain History of Present Illness HPI narrative: Patient is a 43-year-old male with no pertinent past medical history presents emergency department for evaluation of cough, body aches, fatigue over the last 3 days. Patient denies chest pain. No other acute complaints at this time. He presents here for continued evaluation. Related Data Previous Rx's Medication Instructions Recorded meloxicam 15 mg tablet 15 mg PO DAILY #15 tabs 12/23/22 oxycodone-acetaminophen 5 mg-325 1 tab PO Q8H pain #30 tabs 12/23/22 mg tablet (Percocet) oseltamivir 75 mg capsule (Tamiflu) 75 mg PO Q12H 5 days #10 caps 02/26/23 udywizzrhfnifuy-kwiehxxjahsvlol-WA 5 ml PO Q6H PRN cold symptoms #118 04/15/23 2 mg-30 mg-10 mg/5 mL oral syrup mL (Bromfed DM) Allergies Allergy/AdvReac Type Severity Reaction Status Date / Time hydrocodone [From Vicodin] Allergy Verified 01/02/23 13:38 propoxyphene Allergy Verified 01/02/23 13:38 [From Darvocet-N] [facility] Disclaimer: The information contained in this section may have been updated after the patient was seen, as this information can be updated by other users. Medical History No significant past medical history Surgical History H/O left wrist surgery History of tonsillectomy Family History Other Family history of diabetes mellitus type II Social History Smoking Status: Current every day smoker tobacco type: cigarettes packs per day: 1 second hand exposure: No alcohol intake: never substance use type: denies use current occupational status: unemployed Travel in the last 8 weeks: None household members: significant other and children housing: house current occupation: [employer] current occupational exposures/hazards: No ROS Obtained: Yes Systems reviewed as appropriate & no additional complaints except as documented Physical Exam General General appearance: alert and in no apparent distress Head Head exam: atraumatic and normocephalic Eye Eye exam: Present PERRL and EOMI ENT ENT exam: Present mucous membranes moist Neck Neck exam: Present normal inspection Chest Chest inspection: Present normal inspection and symmetric chest wall rise Respiratory Respiratory exam: Present normal lung sounds bilaterally; Absent respiratory distress, wheezes, stridor or accessory muscle use Cardiovascular Cardiovascular exam: Present regular rate and normal rhythm Extremities Exam Extremities exam: Present normal inspection Neurological Exam Neurological exam: Present alert Psychiatric Psychiatric exam: Present normal affect Skin Skin exam: Present warm and dry Medical Decision Making Ye Inquiry Pt receiving controlled substance: No Vital Signs: 04/15/23 14:26 Temperature 98.3 F Temperature Source Oral Pulse Rate [Right Radial] 63 Respiratory Rate 20 Blood Pressure [Right Arm] 113/68 Blood Pressure Mean [Right Arm] 83 02 Sat by Pulse Oximetry 97 Oxygen Delivery Method Room Air Lab Data Lab Results 04/15/23 : SARS-CoV-2 (PCR) Not detected, Influenza A Untype (PCR) Not detected, Influenza Type B (PCR) Not detected Orders (Tests/Meds): ORDERS Category Date Time Status Rapid PCR Covid and Flu A/B Stat Lab 04/15/23 Completed Medical Decision Narrative: In summary patient is a 43-year-old male past medical history described above presents emergency department for evaluation of shortness of breath, body aches. Patient is hemodynamically stable nontoxic-appearing upon arrival, afebrile. Patient is clear to auscultation in all lung ye. Differential includes viral syndrome, influenza, COVID, among others. Limited workup will be conducted with viral swab. Given the patient is clear to auscultation all lung ye, no oxygen requirement, no significant tachycardia workup with hematologic labs and imaging was considered but will be deferred. Workup reviewed by me, viral swab negative. Given this patient is appropriate for discharge at this time will be discharged with course of Bromfed and was given return precautions. Critical Care Critical Care Time Critical Care Time: No
[2023-04-15 16:22] VITALS: BP 120/70; PULSE 65; RESP 20; TEMP 36.9; O2SAT 98
== END 2023-04-15 16:25 | disposition home or self-care (01) ==
PROVIDERS: Emergency Medicine; Emergency Provider Student in an Organized Health Care Education/Training Program; PCP Internal Medicine
DX: J06.9 Acute upper respiratory infection, unspecified (principal); R53.83 Other fatigue; R05.9 Cough, unspecified; M79.10 Myalgia, unspecified site; F17.210 Nicotine dependence, cigarettes, uncomplicated
CPT/HCPCS: 87636; 99283

== ENCOUNTER 2023-07-20 14:17 | Emergency (ER) | payer OTHER, SELFPAY ==
[2023-07-20 14:18] VITALS: BP 138/87; PULSE 88; RESP 18; TEMP 36.9; O2SAT 99; BMI 29.9
--- NOTE | 2023-07-20 14:22 | HMH.EDGENADL ---
Discharge Plan Disposition Patient Disposition: Home, Self-Care Condition: Good Prescriptions Prescriptions: New cephalexin 500 mg capsule 500 mg PO BID 10 Days Qty: 20 0RF No Action meloxicam 15 mg tablet 15 mg PO DAILY Qty: 15 0RF oxycodone-acetaminophen [Percocet] 5-325 mg tablet 1 tab PO Q8H Qty: 30 0RF oseltamivir [Tamiflu] 75 mg capsule 75 mg PO Q12H 5 Days Qty: 10 0RF cephalexin 500 mg capsule 500 mg PO QID 7 Days Qty: 12 0RF dkowdbkbfmqvarq-vbywdplcw-VZ [Bromfed DM] 2-30-10 mg/5 mL syrup 5 ml PO Q6H PRN (Reason: cold symptoms) Qty: 118 0RF Referrals Follow up/Referrals: Jose Alejandro Beasley DO [Primary Care Provider] - See instructions Activity Restrictions/Add. Instructions Additional Instructions/Restrictions: Keep sutures covered with an dry nonocclusive dressing. Avoid repetitive bending especially in the first 24 hours. Sutures need to stay in for 14 days and then you can go to your PCP [facility] or return to ER for suture removal. Return to the emergency department for any worsening pain drainage or redness as needed. Clinical Impressions Clinical Impression: Laceration of right index finger with foreign body Qualifiers: Encounter type: initial encounter Damage to nail status: without damage Qualified Code(s): S61.220A - Laceration with foreign body of right index finger without damage to nail, initial encounter Instructions Patient Instructions: DI for Laceration Repair, DI for Wound Infection Discharge ED Provider: Trav Thorne General Adult HPI <ALEX Natarajan - Last Filed: 07/20/23 15:37> General Chief complaint: Wound/Laceration Stated complaint: cut on right index finger Time Seen by Provider: 07/20/23 14:22 History of Present Illness HPI narrative: Patient presents for an injury to the index finger of his dominant right hand. Patient was moving a rock and his index finger of the right hand was caught between a brick and rock. Patient felt immediate pain. He reports that he does have an retained full range of motion and neurovascularly intact. Last tetanus shot was last year. Related Data Previous Rx's Medication Instructions Recorded meloxicam 15 mg tablet 15 mg PO DAILY #15 tabs 12/23/22 oxycodone-acetaminophen 5 mg-325 1 tab PO Q8H pain #30 tabs 12/23/22 mg tablet (Percocet) oseltamivir 75 mg capsule (Tamiflu) 75 mg PO Q12H 5 days #10 caps 02/26/23 thckiaiocffsfid-jjakiykxscfpwpf-QC 5 ml PO Q6H PRN cold symptoms #118 04/15/23 2 mg-30 mg-10 mg/5 mL oral syrup mL (Bromfed DM) cephalexin 500 mg capsule 500 mg PO BID 10 days #20 caps 07/20/23 cephalexin 500 mg capsule 500 mg PO QID 7 days #12 caps 07/21/23 Allergies Allergy/AdvReac Type Severity Reaction Status Date / Time hydrocodone [From Vicodin] Allergy Verified 07/21/23 05:15 propoxyphene Allergy Verified 07/21/23 05:15 [From Darvocet-N] [facility] <ALEX Natarajan - Last Filed: 07/20/23 15:37> [facility] Disclaimer: The information contained in this section may have been updated after the patient was seen, as this information can be updated by other users. Medical History No significant past medical history Surgical History H/O left wrist surgery History of tonsillectomy Family History Other Family history of diabetes mellitus type II Social History Smoking Status: Current every day smoker tobacco type: cigarettes packs per day: 1 second hand exposure: No alcohol intake: never substance use type: denies use current occupational status: unemployed Travel in the last 8 weeks: None household members: significant other and children housing: house current occupation: [employer] current occupational exposures/hazards: No <ALEX Natarajan - Last Filed: 07/20/23 15:37> ROS Obtained: Yes Systems reviewed as appropriate & no additional complaints except as documented Physical Exam <ALEX Natarajan - Last Filed: 07/20/23 15:37> General General appearance: alert Respiratory Respiratory exam: Present normal lung sounds bilaterally Cardiovascular Cardiovascular exam: Present regular rate and normal rhythm Extremities Exam Extremities exam: Present full ROM Neurological Exam Neurological exam: Present alert and oriented X3 Other Other exam information: Patient has a 4 cm laceration in the medial portion of the index finger of his right dominant hand. Patient is neurovascularly intact distally. Patient has no palpable deformities. Medical Decision Making <ALEX Natarajan - Last Filed: 07/20/23 15:37> Ye Inquiry Pt receiving controlled substance: No Vital Signs: 07/20/23 14:18 07/20/23 15:43 Temperature 98.4 F 98.7 F Temperature Source Oral Oral Pulse Rate 87 Pulse Rate [Right] 88 Respiratory Rate 18 18 Blood Pressure 133/78 Blood Pressure [Right Arm] 138/87 Blood Pressure Mean [Right Arm] 104 Blood Pressure Source [Right Arm] Automatic Cuff 02 Sat by Pulse Oximetry 99 Oxygen Delivery Method Room Air Room Air Orders (Tests/Meds): ED MEDICATIONS Discontinued Medications Generic Name Dose Route Start Last Admin Trade Name Tr PRN Reason Stop Dose Admin Acetaminophen 1,000 mg 07/20/23 14:35 07/20/23 14:51 Acetaminophen 500mg Tab PO 07/20/23 14:36 1,000 mg ONCE ONE Administration Cephalexin HCl 500 mg 07/20/23 15:28 07/20/23 15:42 Cephalexin 500mg Capsule PO 07/20/23 15:29 500 mg ONCE ONE Administration Ketorolac Tromethamine 10 mg 07/20/23 14:45 07/20/23 14:51 Ketorolac 10mg Tablet PO 07/25/23 14:44 10 mg Q6H MAYELA Administration Lidocaine HCl 10 ml 07/20/23 14:23 07/20/23 14:26 Lidocaine 1% 10ml Mdv SQ 07/20/23 14:24 10 ml ONCE ONE Administration ORDERS Category Date Time Status Finger XR right minimum 2 views [XR finger RT min 2V] Exams 07/20/23 14:34 Completed Stat Medical Decision Narrative: In summary patient is a 43-year-old male who presents to the emergency department for evaluation of laceration to his right index finger. Patient is hemodynamically stable upon arrival, afebrile. Physical exam is remarkable for a 4 cm laceration medial aspect of his index finger of his right dominant hand. Differential diagnosis includes simple laceration versus open fracture versus ligamentous injury versus tendon injury. Initial workup will be conducted with plain film x-ray. Initial interventions include Toradol and Tylenol p.o. Initial workup reviewed by me and my informal interpretation of his plain film x-ray shows no acute fracture however does show radiopaque material within the wound. Wound repaired with 9 4 point 0 nylon interrupted sutures. Patient given a prescription for Keflex with first dose here. <Trav Thorne MD - Last Filed: 07/22/23 07:26> Vital Signs: 07/20/23 14:18 07/20/23 15:43 Temperature 98.4 F 98.7 F Temperature Source Oral Oral Pulse Rate 87 Pulse Rate [Right] 88 Respiratory Rate 18 18 Blood Pressure 133/78 Blood Pressure [Right Arm] 138/87 Blood Pressure Mean [Right Arm] 104 Blood Pressure Source [Right Arm] Automatic Cuff 02 Sat by Pulse Oximetry 99 Oxygen Delivery Method Room Air Room Air Orders (Tests/Meds): ED MEDICATIONS Discontinued Medications Generic Name Dose Route Start Last Admin Trade Name Prashanthq PRN Reason Stop Dose Admin Acetaminophen 1,000 mg 07/20/23 14:35 07/20/23 14:51 Acetaminophen 500mg Tab PO 07/20/23 14:36 1,000 mg ONCE ONE Administration Cephalexin HCl 500 mg 07/20/23 15:28 07/20/23 15:42 Cephalexin 500mg Capsule PO 07/20/23 15:29 500 mg ONCE ONE Administration Ketorolac Tromethamine 10 mg 07/20/23 14:45 07/20/23 14:51 Ketorolac 10mg Tablet PO 07/25/23 14:44 10 mg Q6H MAYELA Administration Lidocaine HCl 10 ml 07/20/23 14:23 07/20/23 14:26 Lidocaine 1% 10ml Mdv SQ 07/20/23 14:24 10 ml ONCE ONE Administration ORDERS Category Date Time Status Finger XR right minimum 2 views [XR finger RT min 2V] Exams 07/20/23 14:34 Completed Stat Medical Decision Narrative: In summary patient is a 43-year-old male who presents to the emergency department for evaluation of laceration to his right index finger. Patient is hemodynamically stable upon arrival, afebrile. Physical exam is remarkable for a 4 cm laceration medial aspect of his index finger of his right dominant hand. Differential diagnosis includes simple laceration versus open fracture versus ligamentous injury versus tendon injury. Initial workup will be conducted with plain film x-ray. Initial interventions include Toradol and Tylenol p.o. Initial workup reviewed by me and my informal interpretation of his plain film x-ray shows no acute fracture however does show radiopaque material within the wound. Wound repaired with 9 4 point 0 nylon interrupted sutures. Patient given a prescription for Keflex with first dose here. I was consulted by the MAYRA, and we discussed the complexity of the problems being addressed. I approved the treatment and management plan for this patient?s care in the Emergency Department, thus performing a substantive portion of the medical decision making. Trav Thorne MD Procedures <ALEX Natarajan - Last Filed: 07/20/23 15:37> Laceration Laceration 1: Site: finger (Index dominant hand aspect) Side (If applicable): right Size (cm): 4 Description: other (Irregular crush) Depth: simple, single layer Local Anesthetic: lidocaine 1% Amount of anesthesia used (mL): 15 Pre-repair: wound explored, irrigated extensively (No foreign body found after irrigation) and deep structures intact Skin layer closed with: nylon Size (cm): 4-0 Number of sutures: 9 Technique: simple, interrupted Critical Care <ALEX Natarajan - Last Filed: 07/20/23 15:37> Critical Care Time Critical Care Time: No
[2023-07-20] MEDS: LIDOCAINE 1% 10ML MDV 10 ML SQ (14:26)
--- NOTE | 2023-07-20 14:34 | XR_ITS ---
FINAL REPORT CLINICAL HISTORY: crush injury of Rt index finger FINDINGS: RIGHT FINGERS 2 views were obtained. There is no acute fracture or dislocation. The joint spaces are intact. There is a small radiodensity measuring 1 mm at the volar medial aspect of the mid second digit which may represent a small soft tissue calcification or small foreign body. IMPRESSION: No acute bony abnormality. Radiodensity in the medial aspect of the mid second digit may represent a small soft tissue calcification or small foreign body. Reviewed, Interpreted and Dictated by Virgilio Jeffrey III, MD Transcribed by Joyce Bailey Authenticated and . [facility]
[2023-07-20] MEDS: ACETAMINOPHEN 500MG TAB 1000 MG PO (14:51)
[2023-07-20] MEDS: KETOROLAC 10MG TABLET 10 MG PO (14:51)
[2023-07-20] MEDS: cephALEXin 500MG CAPSULE 500 MG PO (15:42)
[2023-07-20 15:43] VITALS: BP 133/78; PULSE 87; RESP 18; TEMP 37.1; O2SAT 96
== END 2023-07-20 15:47 | disposition home or self-care (01) ==
PROVIDERS: Emergency Provider Emergency Medicine; PCP Internal Medicine
DX: S61.220A Laceration with foreign body of right index finger without damage to nail, initial encounter (principal); M79.644 Pain in right finger(s); W23.2XXA Caught, crushed, jammed or pinched between a moving and stationary object, initial encounter; F17.210 Nicotine dependence, cigarettes, uncomplicated
CPT/HCPCS: 12002; 73140; 99283

== ENCOUNTER 2023-07-21 04:37 | Emergency (ER) | payer OTHER, SELFPAY ==
[2023-07-21 04:39] VITALS: BP 134/93; PULSE 77; RESP 20; TEMP 36.3; O2SAT 98; BMI 29.9
--- NOTE | 2023-07-21 04:49 | PC.NURSE ---
Provided patient with ice water, per patient request.
--- NOTE | 2023-07-21 04:50 | XR_ITS ---
PROCEDURE INFORMATION: Exam: XR Right Hand Exam date and time: 07/21/2023 5:02 AM Age: 43 years old Clinical indication: Pain; Hand; Right; Additional info: Foreign body digit TECHNIQUE: Imaging protocol: Radiologic exam of the right hand. Views: 3 or more views. COMPARISON: CR XR FINGER RT MIN 2V 07/20/2023 2:33 PM FINDINGS: Bones/joints: Normal. Soft tissues: Normal. IMPRESSION: No acute findings.
[2023-07-21] MEDS: ACETAMINOPHEN 500MG TAB 1000 MG PO (05:05)
[2023-07-21] MEDS: KETOROLAC 30MG/ML VIAL 30 MG IM (05:05)
--- NOTE | 2023-07-21 05:13 | PC.NURSE ---
Provided patient with ice pack and education for swelling and pain reduction. Patient verbalized understanding.
--- NOTE | 2023-07-21 05:38 | ED_ITS ---
Discharge Plan Disposition Patient Disposition: Home, Self-Care Prescriptions Prescriptions: New cephalexin 500 mg capsule 500 mg PO QID 7 Days Qty: 12 0RF No Action meloxicam 15 mg tablet 15 mg PO DAILY Qty: 15 0RF oxycodone-acetaminophen [Percocet] 5-325 mg tablet 1 tab PO Q8H Qty: 30 0RF oseltamivir [Tamiflu] 75 mg capsule 75 mg PO Q12H 5 Days Qty: 10 0RF illablxlahmsgdp-tktgglhrb-UH [Bromfed DM] 2-30-10 mg/5 mL syrup 5 ml PO Q6H PRN (Reason: cold symptoms) Qty: 118 0RF cephalexin 500 mg capsule 500 mg PO BID 10 Days Qty: 20 0RF Referrals Follow up/Referrals: Provider,Referral, MD [Primary Care Provider] - See instructions Activity Restrictions/Add. Instructions Additional Instructions/Restrictions: Please take the 500 mg cephalexin 4 times a day. I wrote an additional prescription to cover the extra days. Please take 1 g of Tylenol and 600 mg of ibuprofen every 6 hours as needed for pain. Please keep hand elevated. Please monitor for signs of infection. If it does become infected, you would likely need to see a hand surgeon. Monitor for signs of compartment syndrome as discussed. Please follow-up with your primary care provider. Please return to the emergency department if you develop any new or worsening symptoms or become concerned for your health. Clinical Impressions Clinical Impression: Finger laceration, Finger pain, right Discharge ED Provider: Medardo Altamirano Adult HPI General Chief complaint: PAIN Stated complaint: got stitches r index figer t,can't sleep from pain Time Seen by Provider: 07/21/23 04:40 Mode of Arrival: Ambulatory Source of Information: Patient Limitations: Physical Limitations Description of Symptoms (Recalled from ER Triage Doc. by RN): Pt. presented to ED with right index finger pain. was seen in the ED 07/20/23 at 1500 for crush injury with laceration. Pt had sutures placed and returns with 10/10 pain. History of Present Illness HPI narrative: 43-year-old male with history as reported below presents with right finger pain. He reports that he smashed and lacerated his right index finger yesterday afternoon, presented to our ER where he had an x-ray which showed a radiopaque foreign body. His finger was numbed, irrigated and repaired. They did not repeat the x-ray. He was discharged with some antibiotics. He returns this morning because his pain is severe. He reports that he has had multiple finger injuries and multiple laceration repairs in the past but this pain is more severe than normal. He did not take anything prior to arrival for pain. Related Data Previous Rx's Medication Instructions Recorded meloxicam 15 mg tablet 15 mg PO DAILY #15 tabs 12/23/22 oxycodone-acetaminophen 5 mg-325 1 tab PO Q8H pain #30 tabs 12/23/22 mg tablet (Percocet) oseltamivir 75 mg capsule (Tamiflu) 75 mg PO Q12H 5 days #10 caps 02/26/23 corsznzqzzwwqqa-evughjaxbqjczsu-SR 5 ml PO Q6H PRN cold symptoms #118 04/15/23 2 mg-30 mg-10 mg/5 mL oral syrup mL (Bromfed DM) cephalexin 500 mg capsule 500 mg PO BID 10 days #20 caps 07/20/23 cephalexin 500 mg capsule 500 mg PO QID 7 days #12 caps 07/21/23 Allergies Allergy/AdvReac Type Severity Reaction Status Date / Time hydrocodone [From Vicodin] Allergy Verified 07/21/23 05:15 propoxyphene Allergy Verified 07/21/23 05:15 [From Darvocet-N] [facility] Disclaimer: The information contained in this section may have been updated after the patient was seen, as this information can be updated by other users. Medical History No significant past medical history Surgical History H/O left wrist surgery History of tonsillectomy Family History Other Family history of diabetes mellitus type II Social History Smoking Status: Current every day smoker tobacco type: cigarettes packs per day: 1 second hand exposure: No alcohol intake: never substance use type: denies use current occupational status: unemployed Travel in the last 8 weeks: None household members: significant other and children housing: house current occupation: [employer] current occupational exposures/hazards: No ROS Obtained: Yes All systems reviewed & no additional complaints except as documented Physical Exam General General appearance: alert and in no apparent distress Head Head exam: atraumatic and normocephalic Eye Eye exam: Present normal appearance, PERRL and EOMI ENT ENT exam: Present normal oropharynx and normal external ear exam Neck Neck exam: Present normal inspection and full ROM Chest Chest inspection: Present normal inspection and symmetric chest wall rise; Absent tenderness Respiratory Respiratory exam: Present normal lung sounds bilaterally; Absent respiratory distress Cardiovascular Cardiovascular exam: Present regular rate and normal rhythm Abdominal Exam Abdominal exam: Present soft; Absent distention, tenderness or guarding Extremities Exam Extremities exam: Present other (Right index finger: laceration over the palmar medial aspect of the digit, 9 sutures, no dehiscence. finger is mildly swollen and erythematous diffusely. no tenderness of the flexor tendon in the palm. normal Doppler flow to the distal digital arteries. normal cap refill) Back Exam Back exam: Present normal inspection; Absent tenderness Neurological Exam Neurological exam: Present alert and oriented X3; Absent motor sensory deficit Psychiatric Psychiatric exam: Present normal affect and normal mood Skin Skin exam: Present warm, dry and normal color Lymphatic Lymphatic Findings: no adenopathy Medical Decision Making Medical Records Medical records reviewed: Yes I reviewed the patient's medical records. Ye Inquiry Pt receiving controlled substance: No Ye was queried for this patient: No Vital Signs: 07/21/23 04:39 Temperature 97.4 F L Temperature Source Oral Pulse Rate [Right Radial] 77 Respiratory Rate 20 Blood Pressure [Right Radial Artery] 134/93 H Blood Pressure Mean [Right Radial Artery] 106 Blood Pressure Source [Right Radial Artery] Automatic Cuff Blood Pressure Position [Right Radial Artery] Sitting 02 Sat by Pulse Oximetry 98 Oxygen Delivery Method Room Air Lab Data Lab results reviewed: Yes I reviewed the patient's lab results. Orders (Tests/Meds): ED MEDICATIONS Generic Name Dose Route Start Last Admin Trade Name Freq PRN Reason Stop Dose Admin Oxycodone HCl 5 mg 07/21/23 05:32 Oxycodone 5mg Immediate Release Tablet PO 07/21/23 05:33 ONCE ONE Discontinued Medications Generic Name Dose Route Start Last Admin Trade Name Freq PRN Reason Stop Dose Admin Acetaminophen 1,000 mg 07/21/23 04:50 07/21/23 05:05 Acetaminophen 500mg Tab PO 07/21/23 04:51 1,000 mg ONCE ONE Administration Ketorolac Tromethamine 30 mg 07/21/23 04:50 07/21/23 05:05 Ketorolac 30mg/Ml Vial IM 07/21/23 04:51 30 mg ONCE ONE Administration ORDERS Category Date Time Status Hand XR right minimum 3 views [XR hand RT min 3V] Stat Exams 07/21/23 04:50 Taken Medical Decision Narrative: 43-year-old male presents today after he had a laceration to his right index finger from a rock hitting another rock. History was obtained interactive discussion with patient, chart review. On arrival, patient is [afebrile, hemodynamically stable, satting appropriately, alert, oriented x4, GCS 15], moving all extremities spontaneously. Full physical exam performed and sign ificant for findings as above including normal capillary refill, normal digital artery Doppler signals, mild diffuse erythema of the finger, laceration repaired with sutures without dehiscence. Differential includes but is not limited to laceration, fracture, retained foreign body, infection, flexor tenosynovitis, digital compartment syndrome. Patient was given p.o. Tylenol,, p.o. oxycodone, IM Toradol and an ice pack for symptomatic treatment. Workup initiated including graphs of the right hand. On re-evaluation, patient [remains afebrile, HD stable.] Imaging independently interpreted by me and significant for no retained foreign body, no acute fracture. See radiology read for full review of final results. Transfer to hand specialist was considered, but deemed given the patient's p hysical exam at this time is not consistent with compartment syndrome. Given patient history, exam and workup, patient's presentation most likely represents finger trauma and laceration with resultant pain. Patient has not taken anything in over 8 hours for his pain, he had not been keeping his finger elevated either. He still has range of motion of the finger, normal sensation (with pain), normal digital Doppler signals. This is reassuring that he does not have compartment syndrome at this time. There is no documented violation of the tendon sheath in the prior providers note, there is no current tenderness over the palmar distribution of the tendon which points away from flexor tenosynovitis. Repeat x-ray shows no persistent foreign body. Patient is obviously at high risk for infection given his injury and the presence of foreign body prior to washout. I had extensive and repeated discussion with patient regarding his presentation. He is still at risk for development of seri ous complications including compartment syndrome and flexor tenosynovitis. I gave him specific instructions regarding what to look for for these conditions and when to seek repeat assessment. I ensured that he was discharged with appropriate antibiotic coverage. He was given instructions regarding symptomatic care including Tylenol and ibuprofen at home as well as ice and elevation. He was discharged in stable condition.. Procedures Risk/Benefits of Procedure(s) Were Explained: Yes Critical Care Critical Care Time Critical Care Time: No
[2023-07-21] MEDS: OXYCODONE 5MG IMMEDIATE RELEASE TABLET 5 MG PO (05:39)
[2023-07-21 05:49] VITALS: BP 150/91; PULSE 70; RESP 18; TEMP 36.5; O2SAT 100
== END 2023-07-21 05:51 | disposition home or self-care (01) ==
PROVIDERS: Emergency Provider Emergency Medicine
DX: M79.644 Pain in right finger(s) (principal); S61.210A Laceration without foreign body of right index finger without damage to nail, initial encounter; W23.0XXA Caught, crushed, jammed, or pinched between moving objects, initial encounter
CPT/HCPCS: 73130; 96372; 99283

== ENCOUNTER 2023-07-27 18:18 | Emergency (ER) | payer OTHER, SELFPAY ==
[2023-07-27 18:35] VITALS: BP 128/58; PULSE 62; RESP 20; TEMP 36.8; O2SAT 97; BMI 29.9
--- NOTE | 2023-07-27 18:48 | ED_ITS ---
Discharge Plan Disposition Patient Disposition: Home, Self-Care Condition: Good Prescriptions Prescriptions: No Action meloxicam 15 mg tablet 15 mg PO DAILY Qty: 15 0RF oxycodone-acetaminophen [Percocet] 5-325 mg tablet 1 tab PO Q8H Qty: 30 0RF oseltamivir [Tamiflu] 75 mg capsule 75 mg PO Q12H 5 Days Qty: 10 0RF cephalexin 500 mg capsule 500 mg PO QID 7 Days Qty: 12 0RF aauxjsgnquseozs-hwffagmdt-SR [Bromfed DM] 2-30-10 mg/5 mL syrup 5 ml PO Q6H PRN (Reason: cold symptoms) Qty: 118 0RF cephalexin 500 mg capsule 500 mg PO BID 10 Days Qty: 20 0RF Referrals Follow up/Referrals: Provider,Referral, MD [Primary Care Provider] - See instructions Activity Restrictions/Add. Instructions Additional Instructions/Restrictions: Finish the antibiotics that were prescribed to you. Continue to wear the finger splint. Follow up as previously instructed to have the rest of the sutures removed. GO TO THE ER FOR ANY WORSENING SYMPTOMS OR CONCERNS Clinical Impressions Clinical Impression: Encounter for wound re-check Instructions Patient Instructions: Skin Wound Discharge ED Provider: Mookie Durand [facility] General Stated complaint: stitches coming apart Mode of Arrival: Ambulatory Source of Information: Patient Limitations: No Limitations Time Seen by Provider: 07/27/23 18:48 Description of Symptoms (Recalled from Triage Doc. by RN): PATIENT REPORTS GETTING STITCHES LAST WEEK. HE STATES STITCHES ARE NOT DUE TO COME OUT, BUT STATES HIS SKIN IN GROWING OVER THE STITCHES HEENT Symptoms (Recalled from RN notes): No Resp Symptoms (Recalled from RN notes): No Skin Symptoms (Recalled from RN notes): Yes MS Symptoms (Recalled from RN notes): No Functional Status (Recalled from RN notes): WNL History of Present Illness Provider Complaint: He was in the ER here with a finger laceration of his right index finger 7 days ago. He came in today to have the wound rechecked. He states that most distal suture is pinching him when he has to use his finger. Related Data Previous Rx's Medication Instructions Recorded meloxicam 15 mg tablet 15 mg PO DAILY #15 tabs 12/23/22 oxycodone-acetaminophen 5 mg-325 1 tab PO Q8H pain #30 tabs 12/23/22 mg tablet (Percocet) oseltamivir 75 mg capsule (Tamiflu) 75 mg PO Q12H 5 days #10 caps 02/26/23 ceehtyoioyttdph-dzicbgnkldyhsnn-PQ 5 ml PO Q6H PRN cold symptoms #118 04/15/23 2 mg-30 mg-10 mg/5 mL oral syrup mL (Bromfed DM) cephalexin 500 mg capsule 500 mg PO BID 10 days #20 caps 07/20/23 cephalexin 500 mg capsule 500 mg PO QID 7 days #12 caps 07/21/23 Allergies Allergy/AdvReac Type Severity Reaction Status Date / Time hydrocodone [From Vicodin] Allergy Verified 07/21/23 05:15 propoxyphene Allergy Verified 07/21/23 05:15 [From Darvocet-N] Worker's Comp Is this a Worker's Comp case?: No [facility] Disclaimer: The information contained in this section may have been updated after the patient was seen, as this information can be updated by other users. Medical History No significant past medical history Surgical History H/O left wrist surgery History of tonsillectomy Family History Other Family history of diabetes mellitus type II Social History Smoking Status: Current every day smoker tobacco type: cigarettes packs per day: 1 second hand exposure: No alcohol intake: never substance use type: denies use current occupational status: unemployed Travel in the last 8 weeks: None household members: significant other and children housing: house current occupation: [employer] current occupational exposures/hazards: No ROS Obtained: Yes All systems reviewed & no additional complaints except as documented Constitutional Constitutional: Denies chills and Denies fever(s) Eyes Eyes: Denies eye discharge ENT Ears, Nose, Mouth, and Throat: Denies dizziness, Denies otalgia and Denies sore throat Cardiovascular Cardiovascular: Denies chest pain Respiratory Respiratory: Denies shortness of breath, Denies chest congestion, Denies cough, Denies stridor and Denies wheezing Gastrointestinal Gastrointestingal: Denies nausea or vomiting Musculoskeletal Musculoskeletal: Reports system reviewed and no additional complaints, except as documented and Denies arthralgias Integumentary/Breasts Skin/Breast: Reports as per HPI Neurologic Neurologic: Denies dizziness and Denies paresthesias Allergic/Immunologic Allergic/Immunologic: Denies wheezing Physical Exam General General appearance: alert and in no apparent distress Head Head exam: atraumatic, normocephalic and normal inspection Eye Eye exam: Present normal appearance, PERRL and EOMI ENT ENT exam: Present normal exam, normal oropharynx, mucous membranes moist, TM's n ormal bilaterally and normal external ear exam Neck Neck exam: Present normal inspection, full ROM and trachea midline; Absent meningismus or lymphadenopathy Chest Chest inspection: Present normal inspection and symmetric chest wall rise; Absent tenderness Respiratory Respiratory exam: Present normal lung sounds bilaterally; Absent respiratory distress Cardiovascular Cardiovascular exam: Present regular rate and normal rhythm; Absent JVD Abdominal Exam Abdominal exam: Present soft and normal bowel sounds; Absent distention, tenderness or guarding Extremities Exam Extremities exam: Present normal inspection, full ROM and normal capillary refill; Absent calf tenderness Back Exam Back exam: Present normal inspection; Absent tenderness Neurological Exam Neurological exam: Present alert and oriented X3 Psychiatric Psychiatric exam: Present normal affect and normal mood Skin Skin exam: Present other (the wound on his right index finger appears to be healing well, no erythema or drainage. I removed the most distal suture for patient's comfort. He tolerated this well. ) Lymphatic Lymphatic Findings: no adenopathy Medical Decision Making Medical Records Medical records reviewed: No I reviewed the patient's medical records. Ye Inquiry Pt receiving controlled substance: No Vital Signs: 07/27/23 18:35 Temperature 98.3 F Temperature Source Oral Pulse Rate [Left Brachial] 62 Respiratory Rate 20 Blood Pressure [Left Arm] 128/58 L Blood Pressure Mean [Left Arm] 81 Blood Pressure Source [Left Arm] Automatic Cuff Blood Pressure Position [Left Arm] Sitting 02 Sat by Pulse Oximetry 97 Oxygen Delivery Method Room Air
[2023-07-27 18:57] VITALS: BP 128/58; PULSE 62; RESP 20; TEMP 36.8; O2SAT 97
== END 2023-07-27 19:00 | disposition home or self-care (01) ==
PROVIDERS: Emergency Provider Nurse Practitioner Family
DX: Z48.02 Encounter for removal of sutures (principal)
CPT/HCPCS: 99211; 99212; G0463

== ENCOUNTER 2023-08-03 16:12 | Emergency (ER) | payer OTHER, SELFPAY ==
[2023-08-03 16:20] VITALS: BP 124/74; PULSE 82; RESP 20; TEMP 36.6; O2SAT 97; BMI 29.9
[2023-08-03 16:25] VITALS: BP 124/74; PULSE 82; RESP 20; TEMP 36.6; O2SAT 97
== END 2023-08-03 16:30 | disposition home or self-care (01) ==
PROVIDERS: Emergency Provider Nurse Practitioner; PCP Internal Medicine
DX: Z48.02 Encounter for removal of sutures (principal)

== ENCOUNTER 2023-08-07 22:36 | Emergency (ER) | payer OTHER, SELFPAY ==
[2023-08-07 22:37] VITALS: BP 149/109; PULSE 75; RESP 18; TEMP 37.1; O2SAT 97; BMI 29.1
--- NOTE | 2023-08-07 22:48 | ED_ITS ---
Discharge Plan Disposition Patient Disposition: Home, Self-Care Prescriptions Prescriptions: New ibuprofen 600 mg tablet 600 mg PO Q8H PRN (Reason: pain) Qty: 30 0RF doxycycline hyclate 100 mg capsule 100 mg PO BID 7 Days Qty: 14 0RF No Action meloxicam 15 mg tablet 15 mg PO DAILY Qty: 15 0RF oxycodone-acetaminophen [Percocet] 5-325 mg tablet 1 tab PO Q8H Qty: 30 0RF oseltamivir [Tamiflu] 75 mg capsule 75 mg PO Q12H 5 Days Qty: 10 0RF cephalexin 500 mg capsule 500 mg PO QID 7 Days Qty: 12 0RF meietbgrgyguzno-iebeiiidb-YF [Bromfed DM] 2-30-10 mg/5 mL syrup 5 ml PO Q6H PRN (Reason: cold symptoms) Qty: 118 0RF cephalexin 500 mg capsule 500 mg PO BID 10 Days Qty: 20 0RF Referrals Follow up/Referrals: Jose Alejandro Beasley DO [Primary Care Provider] - See instructions Activity Restrictions/Add. Instructions Additional Instructions/Restrictions: Try to stay out of the sun while taking doxycycline, it can cause severe sunburns. 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 Call your family doctor to establish care for this visit to the emergency department and schedule follow-up within 48 hours to ensure improvement. If you have any worsening of your condition or any other concerning signs or symptoms, return to the emergency department or your primary care doctor for further evaluation. Clinical Impressions Clinical Impression: Encounter for wound care Instructions Patient Instructions: DI for Laceration Repair Discharge ED Provider: Trav Thorne General Adult HPI General Chief complaint: Wound/Laceration Stated complaint: stitches opened on RT index finger Time Seen by Provider: 08/07/23 22:38 History of Present Illness HPI narrative: Please note that above description of symptoms, in this electronic medical record under categorization of recalled from ER triage doctor by RN are reflective of an initial nursing assessment, however, is not reflective of my full history and physical exam that was personally taken and clarified. Consequentially, this preceding description of symptoms, which may include the patient's categorized chief complaint in the EMR, do not reflect my personal clinical impression, and the ultimate description of history of present illness and patient stated complaints should be deferred to this section of the note. Unless stated otherwise or congruent with this section of the note, additional signs, symptoms, or incongruence should be interpreted as inaccurate with my clinical impression. Related Data Previous Rx's Medication Instructions Recorded meloxicam 15 mg tablet 15 mg PO DAILY #15 tabs 12/23/22 oxycodone-acetaminophen 5 mg-325 1 tab PO Q8H pain #30 tabs 12/23/22 mg tablet (Percocet) oseltamivir 75 mg capsule (Tamiflu) 75 mg PO Q12H 5 days #10 caps 02/26/23 mznpzkrkogfswxf-lztrepxlrqdprya-PR 5 ml PO Q6H PRN cold symptoms #118 04/15/23 2 mg-30 mg-10 mg/5 mL oral syrup mL (Bromfed DM) cephalexin 500 mg capsule 500 mg PO BID 10 days #20 caps 07/20/23 cephalexin 500 mg capsule 500 mg PO QID 7 days #12 caps 07/21/23 doxycycline hyclate 100 mg capsule 100 mg PO BID 7 days #14 caps 08/07/23 ibuprofen 600 mg tablet 600 mg PO Q8H PRN pain #30 tabs 08/07/23 Allergies Allergy/AdvReac Type Severity Reaction Status Date / Time hydrocodone [From Vicodin] Allergy Verified 07/21/23 05:15 propoxyphene Allergy Verified 07/21/23 05:15 [From Darvocet-N] [facility] Disclaimer: The information contained in this section may have been updated after the patient was seen, as this information can be updated by other users. Medical History No significant past medical history Surgical History H/O left wrist surgery History of tonsillectomy Family History Other Family history of diabetes mellitus type II Social History Smoking Status: Current every day smoker tobacco type: cigarettes packs per day: 1 second hand exposure: No alcohol intake: never substance use type: denies use current occupational status: unemployed Travel in the last 8 weeks: None household members: significant other and children housing: house current occupation: [employer] current occupational exposures/hazards: No ROS Obtained: Yes All systems reviewed & no additional complaints except as documented Physical Exam General General appearance: alert and in no apparent distress Head Head exam: atraumatic and normocephalic Eye Eye exam: Present normal appearance, PERRL and EOMI ENT ENT exam: Present mucous membranes moist Neck Neck exam: Present normal inspection, full ROM and trachea midline Respiratory Respiratory exam: Absent respiratory distress, wheezes, stridor, accessory muscle use or prolonged expiratory phase Cardiovascular Cardiovascular exam: Present normal rhythm Abdominal Exam Abdominal exam: Present soft; Absent distention, tenderness, guarding, rebound or rigidity Extremities Exam Extremities exam: Present other (Right pointer finger with well-healing laceration. Erythema and tenderness around the laceration without julia purulence concerning for cellulitis. Granulation tissue in the bed of the laceration. Negative Kanavel signs); Absent edema Neurological Exam Neurological exam: Present alert, oriented X3, CN II-XII intact and normal gait; Absent motor sensory deficit Skin Skin exam: Present warm and dry; Absent diaphoresis or erythema Medical Decision Making Medical Records Medical records reviewed: Yes I reviewed the patient's medical records. Ye Inquiry Pt receiving controlled substance: No Ye was queried for this patient: No Medical Decision Narrative: 43-year-old male no relevant medical history presenting with concern for laceration on his right pointer finger. 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 Had laceration repaired on 07/20, had stitches removed on 08/02. States that he started having pain and swelling, concern for infection the last couple of days. No fevers or chills, but it is red, tender. No drainage. Asking for tough, skin around the area to be removed and antibiotic. History obtained with patient and chart review. On arrival, patient appropriate, very well-appearing. He does have 2 cm medial aspect of his right pointer finger with good granulation tissue in the bed, but surrounding cellulitis. Negative Kanavel signs. Afebrile. Patient was numbed using 1% lidocaine, skin was cut away. Wound was dressed with Xeroform gauze. Patient given first dose of doxycycline here. Rest of 7-day course sent to the pharmacy. Also requesting ibuprofen be sent there, I feel this is appropriate. Because patient at baseline without signs or symptoms of clinical decompensation, deemed appropriate for discharge. Results were relayed to patient who voiced understanding and were agreeable to outpatient management and follow up. I discussed my clinical impression with patient and answered all questions. At this time, the evidence for any other entities in the differential is insufficient to warrant any further testing or ED observation. This was explained as well. Advisory was given that persistent or worsening symptoms require further evaluation. I confirmed the understanding of this discussion. Cell Room Supervisor disclaimer Much of this encounter note is an electronic inside contractor sales spoken language to printed text. Electronic inside contractor sales of the spoken language may permit errors. Although I have reviewed the note, some errors may still exist. Procedures Miscellaneous Procedure Procedure Performed: Patient was numbed with 1% lidocaine 5 mL on his right pointer finger Wound was explored, skin around the area was removed and wound was carlotta rided. Critical Care Critical Care Time Critical Care Time: No
[2023-08-07] MEDS: DOXYCYCLINE HYCL 100 MG TABLET PO (22:54)
[2023-08-07 23:13] VITALS: BP 140/98; PULSE 70; RESP 18; TEMP 37.1; O2SAT 97
== END 2023-08-07 23:17 | disposition home or self-care (01) ==
PROVIDERS: Emergency Provider Emergency Medicine; PCP Internal Medicine
DX: S61.210D Laceration without foreign body of right index finger without damage to nail, subsequent encounter; W23.0XXD Caught, crushed, jammed, or pinched between moving objects, subsequent encounter
CPT/HCPCS: 11042; 99283

== ENCOUNTER 2023-09-26 22:08 | Emergency (ER) | payer OTHER, SELFPAY ==
[2023-09-26 22:09] VITALS: BP 153/96; PULSE 75; RESP 16; TEMP 36.7; O2SAT 99; BMI 32.1
--- NOTE | 2023-09-26 22:52 | ED_ITS ---
<Statement entered by Tam Vogel MD - 09/26/23 23:16> I was consulted by the MAYRA, and we discussed the complexity of problems being addressed. I approved the treatment and management plan for this patient's care in the emergency department, thus performing a substantial portion of the medical decision making. Tam Vogel MD Discharge Plan Disposition Patient Disposition: Home, Self-Care Condition: Good Prescriptions Prescriptions: New cephalexin 500 mg capsule 500 mg PO BID 7 Days Qty: 14 0RF Referrals Follow up/Referrals: Jose Alejandro Beasley DO [Primary Care Provider] - See instructions Activity Restrictions/Add. Instructions Additional Instructions/Restrictions: Please return to the emergency department for any worsening swelling shortness of breath itching or any worsening signs or symptoms as needed. Sent a prescription for Keflex to your pharmacy. Clinical Impressions Clinical Impression: Accidental insect sting Discharge ED Provider: Tam Vogel General Adult HPI General Chief complaint: Allergic Reaction Stated complaint: poss wasp sting, RT hand swollen Time Seen by Provider: 09/26/23 22:52 Mode of Arrival: Family Vehicle Source of Information: Patient Limitations: No Limitations Description of Symptoms (Recalled from ER Triage Doc. by RN): 43 M presents to ER via POV with concerns of wasp or bee sting to R hand and R side of his chest. He is unsure if the stinger is sting in there . No definitive sting site identified. There is moderate swelling to anterior R hand. No redness noted. Pt can pin-point are area of pain to both areas. 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 Denies any SOA, dyspnea, or anaphylaxis symptoms. History of Present Illness HPI narrative: Patient presents for evaluation of an insect sting. Patient reports that he was unsure what the timing is it was dark but felt several rapid stings to his right hand right anterior chest. Happened approximately 1 hour prior to arrival. Patient does not have a known allergy to insect stings. He reports no shortness of breath chest pain fever chills hemoptysis hematochezia melena nausea vomit diarrhea. Related Data Previous Rx's Medication Instructions Recorded cephalexin 500 mg capsule 500 mg PO BID 7 days #14 caps 09/26/23 Allergies Allergy/AdvReac Type Severity Reaction Status Date / Time hydrocodone [From Vicodin] Allergy Verified 07/21/23 05:15 propoxyphene Allergy Verified 07/21/23 05:15 [From Darvocet-N] [facility] Disclaimer: The information contained in this section may have been updated after the patient was seen, as this information can be updated by other users. Medical History No significant past medical history Surgical History H/O left wrist surgery History of tonsillectomy Family History Other Family history of diabetes mellitus type II Social History Smoking Status: Current every day smoker tobacco type: cigarettes packs per day: 1 second hand exposure: No alcohol intake: never substance use type: denies use current occupational status: unemployed Travel in the last 8 weeks: None household members: significant other and children housing: house current occupation: [employer] current occupational exposures/hazards: No ROS Obtained: Yes Systems reviewed as appropriate & no additional complaints except as documented Physical Exam General General appearance: alert and in no apparent distress Chest Chest inspection: Present symmetric chest wall rise and tenderness (Patient has a area of local tenderness and slight erythema and edema in the right chest and the nipple line of his mid pectoralis muscle.) Respiratory Respiratory exam: Present normal lung sounds bilaterally and accessory muscle use; Absent respiratory distress, wheezes or stridor Cardiovascular Cardiovascular exam: Present regular rate and normal rhythm Extremities Exam Extremities exam: Present full ROM and tenderness; Absent normal inspection (Patient has an area of erythema and edema on the dorsum of his right hand that is localized. No stinger identified. No fluctuance noted.) Neurological Exam Neurological exam: Present alert and oriented X3 Skin Skin exam: Present dry Medical Decision Making Medical Records Medical records reviewed: Yes I reviewed the patient's medical records. Ye Inquiry Pt receiving controlled substance: No Vital Signs: 09/26/23 22:09 Temperature 98.0 F Temperature Source Oral Pulse Rate [Right] 75 Respiratory Rate 16 Blood Pressure [Right Arm] 153/96 H Blood Pressure Mean [Right Arm] 115 Blood Pressure Source [Right Arm] Automatic Cuff 02 Sat by Pulse Oximetry 99 Oxygen Delivery Method Room Air Orders (Tests/Meds): ED MEDICATIONS Discontinued Medications Generic Name Dose Route Start Last Admin Trade Name Tr PRN Reason Stop Dose Admin Acetaminophen 1,000 mg 09/26/23 22:52 09/26/23 23:06 Acetaminophen 500mg Tab PO 09/26/23 22:53 1,000 mg ONCE ONE Administration Diphenhydramine HCl 50 mg 09/26/23 22:52 09/26/23 23:06 Diphenhydramine 25mg Capsule PO 09/26/23 22:53 50 mg ONCE ONE Administration Ibuprofen 800 mg 09/26/23 22:52 09/26/23 23:06 Ibuprofen 400 Mg Tablet PO 09/26/23 22:53 800 mg ONCE ONE Administration Medical Decision Narrative: In summary patient is a 43-year-old male who presents to the emergency department for evaluation of an insect sting. Patient is hemodynamically stable upon arrival, and afebrile. Physical exam is remarkable for 2 areas that have been stung. One is on the anterior chest on the right side the other 1 is on the dorsum of his right hand. Both are significantly localized to the area and given the timeframe from the exposure of approximately 1 hour prior to arrival no concerning systemic spread. Patient is hemodynamically stable has normal breath sounds has no respiratory response does not appear to have anaphylactic response.. Differential diagnosis includes localized bee sting reaction versus possible cellulitis. Initial workup was considered but given that the patient has only local symptoms further workup was deferred. Initial interventions include Benadryl Tylenol and ibuprofen orally. Upon reevaluation I had a interact discussion with the patient about his care. I offered ER observation or home observation with strict return precautions. Via patient directed decision making he elected to be medicated and discharged and return if he had any worsening signs or symptoms. Given this patient was discharged with strict return precautions. Critical Care Critical Care Time Critical Care Time: No
[2023-09-26] MEDS: ACETAMINOPHEN 500MG TAB 1000 MG PO (23:06)
[2023-09-26] MEDS: diphenhydrAMINE 25MG CAPSULE 50 MG PO (23:06)
[2023-09-26] MEDS: IBUPROFEN 400 MG TABLET 800 MG PO (23:06)
[2023-09-26 23:28] VITALS: BP 148/70; PULSE 70; RESP 20; TEMP 36.7; O2SAT 98
== END 2023-09-26 23:31 | disposition home or self-care (01) ==
PROVIDERS: Emergency Provider Emergency Medicine; PCP Internal Medicine
DX: T63.481A Toxic effect of venom of other arthropod, accidental (unintentional), initial encounter (principal)
CPT/HCPCS: 99283

== ENCOUNTER 2023-10-27 16:40 | Emergency (ER) | payer OTHER, SELFPAY ==
[2023-10-27 16:52] VITALS: BP 118/75; PULSE 91; RESP 18; TEMP 36.5; O2SAT 95; BMI 32.5
--- NOTE | 2023-10-27 17:40 | HMH.EDGENADL ---
Discharge Plan Disposition Patient Disposition: Home, Self-Care Prescriptions Prescriptions: New erythromycin 5 mg/gram (0.5 %) ointment 1 applic ophthalmic (eye) TID 5 Days Qty: 3.5 0RF No Action cephalexin 500 mg capsule 500 mg PO BID 7 Days Qty: 14 0RF Referrals Follow up/Referrals: Jose Alejandro Beasley DO [Primary Care Provider] - See instructions Activity Restrictions/Add. Instructions Additional Instructions/Restrictions: If symptoms do not improve by tomorrow, 10/27, follow-up with Dr. Hatch, optometry. Erythromycin ointment 3 times daily for the next 5 days. Call your family doctor to establish care for this visit to the emergency department and schedule follow-up within 48 hours to ensure improvement. If you have any worsening of your condition or any other concerning signs or symptoms, return to the emergency department or your primary care doctor for further evaluation. Clinical Impressions Clinical Impression: Abrasion, corneal Print Language Print Language: Occitan Discharge ED Provider: Trav Thorne General Adult HPI General Chief complaint: Eye Problems Stated complaint: AO 10/27/23 1540 FB right eye Time Seen by Provider: 10/27/23 17:04 Mode of Arrival: Ambulatory Source of Information: Patient Limitations: No Limitations Description of Symptoms (Recalled from ER Triage Doc. by RN): pt presents to er for foreign object noted to his R eye, states he was cutting wood, felt a sensation and tried to flush it out with water wand visine with no success History of Present Illness HPI narrative: Please note that above description of symptoms, in this electronic medical record under categorization of recalled from ER triage doctor by RN are reflective of an initial nursing assessment, however, is not reflective of my full history and physical exam that was personally taken and clarified. Consequentially, this preceding description of symptoms, which may include the patient's categorized chief complaint in the EMR, do not reflect my personal clinical impression, and the ultimate description of history of present illness and patient stated complaints should be deferred to this section of the note. Unless stated otherwise or congruent with this section of the note, additional signs, symptoms, or incongruence should be interpreted as inaccurate with my clinical impression. Related Data Previous Rx's ?Medication ?Instructions ?Recorded cephalexin 500 mg capsule 500 mg PO BID 7 days #14 caps 09/26/23 erythromycin 5 mg/gram (0.5 %) eye 1 applic ophthalmic (eye) TID 5 10/27/23 ointment days #3.5 grams Allergies Allergy/AdvReac Type Severity Reaction Status Date / Time hydrocodone [From Vicodin] Allergy Verified 07/21/23 05:15 propoxyphene Allergy Verified 07/21/23 05:15 [From Darvocet-N] [facility] Disclaimer: The information contained in this section may have been updated after the patient was seen, as this information can be updated by other users. Medical History No significant past medical history Surgical History H/O left wrist surgery History of tonsillectomy Family History Other Family history of diabetes mellitus type II Social History Smoking Status: Never smoker second hand exposure: No alcohol intake: never substance use type: denies use current occupational status: unemployed Travel in the last 8 weeks: None household members: significant other and children housing: house current occupation: [employer] current occupational exposures/hazards: No ROS Obtained: Yes All systems reviewed & no additional complaints except as documented Physical Exam General General appearance: alert Head Head exam: atraumatic and normoce
--- NOTE | 2023-10-27 18:00 | PC.NURSE ---
Pt called out to staff reporting that his eye was more painful than before. He states it is burning bad . Dr. Thorne notified and he s/w pt and asked staff to call Dr. Hatch for consult. This was completed and he suggested we given antibiotic ointment and tape eye shut. Educated to Call Dr. Hatch office in AM for recheck or if worsening symptoms.
[2023-10-27 18:37] VITALS: BP 121/70; PULSE 88; RESP 20; TEMP 36.5; O2SAT 96
== END 2023-10-27 18:40 | disposition home or self-care (01) ==
PROVIDERS: Emergency Provider Emergency Medicine; PCP Internal Medicine
DX: S05.01XA Injury of conjunctiva and corneal abrasion without foreign body, right eye, initial encounter (principal); W45.8XXA Other foreign body or object entering through skin, initial encounter
CPT/HCPCS: 96372; 99283; J1885

== ENCOUNTER 2023-11-08 23:52 | Emergency (ER) | payer OTHER, SELFPAY ==
[2023-11-09 00:02] VITALS: BP 139/79; PULSE 66; RESP 16; TEMP 36.7; O2SAT 97; BMI 26.7
--- NOTE | 2023-11-09 00:14 | HMH.EDGENADL ---
Discharge Plan Disposition Patient Disposition: Home, Self-Care Prescriptions Prescriptions: No Action cephalexin 500 mg capsule 500 mg PO BID 7 Days Qty: 14 0RF erythromycin 5 mg/gram (0.5 %) ointment 1 applic ophthalmic (eye) TID 5 Days Qty: 3.5 0RF Referrals Follow up/Referrals: Jose Alejandro Beasley DO [Primary Care Provider] - See instructions Activity Restrictions/Add. Instructions Additional Instructions/Restrictions: Please apply erythromycin ointment as discussed. If you continue to have symptoms, recommend return to the ER or following up with an senior executive assistant/greeting card writer. Clinical Impressions Clinical Impression: Acute foreign body of cornea Qualifiers: Encounter type: initial encounter Laterality: left Qualified Code(s): T15.02XA - Foreign body in cornea, left eye, initial encounter Print Language Print Language: Citizen Of [place] Discharge ED Provider: Medardo Altamirano General Adult HPI General Chief complaint: Eye Problems Stated complaint: foreign object L eye Time Seen by Provider: 11/08/23 23:55 Mode of Arrival: Family Vehicle Source of Information: Patient Limitations: No Limitations Description of Symptoms (Recalled from ER Triage Doc. by RN): 43 yo male presents with left eye irritation, eye drainage x 2 -3 days History of Present Illness HPI narrative: 43-year-old male without significant past medical history presents for concern for foreign body in the left eye. He reports that he was sitting yesterday when he felt like something got into his eye. He rubbed it and it has been irritated ever since. Reports some watery drainage. Denies any fever. He does not wear contacts or glasses. Related Data Previous Rx's ?Medication ?Instructions ?Recorded cephalexin 500 mg capsule 500 mg PO BID 7 days #14 caps 09/26/23 erythromycin 5 mg/gram (0.5 %) eye 1 applic ophthalmic (eye) TID 5 10/27/23 ointment days #3.5 grams Allergies Allergy/AdvReac Type Severity Reaction Status Date / Time hydrocodone [From Vicodin] Allergy Verified 07/21/23 05:15 propoxyphene Allergy Verified 07/21/23 05:15 [From Darvocet-N] [facility] Disclaimer: The information contained in this section may have been updated after the patient was seen, as this information can be updated by other users. Medical History No significant past medical history Surgical History H/O left wrist surgery History of tonsillectomy Family History Other Family history of diabetes mellitus type II Social History Smoking Status: Unknown if ever smoked second hand exposure: No alcohol intake: never substance use type: denies use current occupational status: unemployed Travel in the last 8 weeks: None household members: significant other and children housing: house current occupation: [employer] current occupational exposures/hazards: No ROS Obtained: Yes All systems reviewed & no additional complaints except as documented Physical Exam General General appearance: alert and in no apparent distress Head Head exam: atraumatic and normocephalic Eye Eye exam: Present PERRL, EOMI and other (Left eye conjunctival injection, small black foreign body noted over the inferior lateral quadrant of the left cornea. No Nikkie sign, no other abnormalities noted on fluorescein staining) ENT ENT exam: Present normal oropharynx and normal external ear exam Neck Neck exam: Present normal inspection and full ROM Chest Chest inspection: Present normal inspection and symmetric chest wall rise; Absent tenderness Respiratory Respiratory exam: Present normal lung sounds bilaterally; Absent respiratory distress Cardiovascular Cardiovascular exam: Present regular rate and normal rhythm Abdominal Exam Abdominal exam: Present soft; Absent distention, tenderness or guarding Extremities Exam Extremities exam: Present normal inspection; Absent edema or joint swelling Back Exam Back exam: Present normal inspection; Absent tenderness Neurological Exam Neurological exam: Present alert and oriented X3; Absent motor sensory deficit Psychiatric Psychiatric exam: Present normal affect and normal mood Skin Skin exam: Present warm, dry and normal color Lymphatic Lymphatic Findings: no adenopathy Medical Decision Making Medical Records Medical records reviewed: Yes I reviewed the patient's medical records. Ye Inquiry Pt receiving controlled substance: No Ye was queried for this patient: No Vital Signs: 11/09/23 00:02 11/09/23 00:29 Temperature 98.0 F 98.1 F Temperature Source Oral Oral Pulse Rate 72 Pulse Rate [Right Brachial] 66 Respiratory Rate 16 18 Blood Pressure 136/79 Blood Pressure [Right Arm] 139/79 Blood Pressure Mean [Right Arm] 99 Blood Pressure Source Automatic Cuff Blood Pressure Source [Right Arm] Automatic Cuff Blood Pressure Position Sitting Blood Pressure Position [Right Arm] Sitting 02 Sat by Pulse Oximetry 97 Oxygen Delivery Method Room Air Room Air Lab Data Lab results reviewed: Yes I reviewed the patient's lab results. Orders (Tests/Meds): ED MEDICATIONS Discontinued Medications Generic Name Dose Route Start Last Admin Trade Name Tr PRN Reason Stop Dose Admin Erythromycin 1 gm 11/09/23 00:15 11/09/23 00:31 Erythromycin Base 1 Gm Oint...G. OP 11/09/23 00:16 1 gm ONCE ONE Administration Fluorescein Sodium 1 mg 11/09/23 00:15 11/09/23 00:31 Fluorescein Sodium 1mg Strip OP 11/09/23 00:16 1 mg ONCE ONE Administration Tetracaine HCl 0 ml 11/09/23 00:15 11/09/23 00:32 Tetracaine 0.5% Opth Loni 15ml OP 11/09/23 00:16 1 ml ONCE ONE Administration Medical Decision Narrative: 43-year-old male presents with concern for left eye foreign body since yesterday.. History was obtained via interactive discussion with patient. On arrival, patient is [afebrile, hemodynamically stable, satting appropriately, alert, oriented x4, GCS 15], moving all extremities spontaneously. Full physical exam performed and significant for left eye conjunctival injection with small black corneal foreign body noted on fluorescein staining over the inferior lateral quadrant of the left cornea. No other abnormalities noted on fluorescein staining Differential includes but is not limited to corneal foreign body, corneal abrasion, open globe. Patient was given fluorescein, tetracaine, erythromycin ointment for symptomatic management and correction of underlying abnormalities. The foreign body was removed by me at bedside. Patient was discharged with prescription for erythromycin ointment. Return precautions given. Procedures Risk/Benefits of Procedure(s) Were Explained: Yes Eye Exam/FB Removal Location: eye (L) Topical anesthetic used: tetracaine Fluorescein Stick(s) used: Yes Time Out performed: Yes Procedure performed under: direct visualization with magnification Foreign body: metal Evidence of corneal penetration: No Technique: irrigation, cotton tip swab and needle Post-procedure medication: ophthalmic antibiotic Eye irrigated w/saline (#ccs): 15 Patient tolerated procedure: well and no complications Critical Care Critical Care Time Critical Care Time: No
[2023-11-09 00:29] VITALS: BP 136/79; PULSE 72; RESP 18; TEMP 36.7; O2SAT 98
[2023-11-09] MEDS: ERYTHROMYCIN BASE 1 GM OINT...G. OP (00:31)
[2023-11-09] MEDS: FLUORESCEIN SODIUM 1MG STRIP 1 MG OP (00:31)
[2023-11-09] MEDS: TETRACAINE 0.5% OPTH SOL 15ML OP (00:32)
--- NOTE | 2023-11-10 18:24 | PC.NURSE ---
pt returned to ER at this time with empty tube, asking for another. Dr. Parker took call and asked for staff to pull a tube of the erythromycin ointment. Order placed and med pulled from [facility]
[2023-11-10] MEDS: ERYTHROMYCIN BASE 1 GM OINT...G. OP (18:25)
== END 2023-11-09 00:32 | disposition home or self-care (01) ==
PROVIDERS: Emergency Provider Emergency Medicine; PCP Internal Medicine
DX: T15.02XA Foreign body in cornea, left eye, initial encounter (principal)
CPT/HCPCS: 65220; 99283

== ENCOUNTER 2023-11-22 18:45 | Emergency (ER) | payer OTHER, SELFPAY ==
--- NOTE | 2023-11-22 18:50 | ED_ITS ---
<Statement entered by Yary Lowery DO - 11/23/23 15:01> I was consulted by the MAYRA, and we discussed the complexity of the problems being addressed. I approved the treatment and management plan for this patient's care in the emergency department, thus performing a substantive portion of the medical decision making. Yary Lowery DO Discharge Plan Disposition Patient Disposition: Home, Self-Care Condition: Good Prescriptions Prescriptions: New ondansetron 4 mg tablet,disintegrating 4 mg PO QID PRN (Reason: nausea and vomiting) Qty: 10 0RF [id number] [Bromfed DM] 2-30-10 mg/5 mL syrup 5 ml PO Q4H PRN (Reason: sinus symptoms) Qty: 118 0RF No Action cephalexin 500 mg capsule 500 mg PO BID 7 Days Qty: 14 0RF erythromycin 5 mg/gram (0.5 %) ointment 1 applic ophthalmic (eye) TID 5 Days Qty: 3.5 0RF Referrals Follow up/Referrals: Jose Alejandro Beasley DO [Primary Care Provider] - See instructions Activity Restrictions/Add. Instructions Additional Instructions/Restrictions: I have called your prescription into your pharmacy for cough medicine and for nausea medicine. If your symptoms worsen or do not improve follow-up with your PCP. Return to ER for any worsening signs or symptoms as needed. Clinical Impressions Clinical Impression: URI (upper respiratory infection), Nausea Instructions Patient Instructions: DI for Diarrhea and Traveler's Diarrhea -- Adult, DI for Diarrhea and Traveler's Diarrhea -- Child, DI for Nausea -- Adult, DI for Nausea -- Child Print Language Print Language: Uzbek Discharge ED Provider: Yary Lowery General Adult HPI General Chief complaint: Nausea/Vomiting/Diarrhea Stated complaint: nausea,cough,sore spot on left hand Time Seen by Provider: 11/22/23 18:50 History of Present Illness HPI narrative: Patient presents for evaluation of not feeling well . Patient states that he has had nausea but no vomiting some loose stool. He is able to eat and drink normally and is passing gas. He does not have any fever chest pain shortness of breath Related Data Previous Rx's ?Medication ?Instructions ?Recorded cephalexin 500 mg capsule 500 mg PO BID 7 days #14 caps 09/26/23 erythromycin 5 mg/gram (0.5 %) eye 1 applic ophthalmic (eye) TID 5 10/27/23 ointment days #3.5 grams [id number]-[id number]-SB 5 ml PO Q4H PRN sinus symptoms 11/22/23 2 mg-30 mg-10 mg/5 mL oral syrup #118 mL (Bromfed DM) ondansetron 4 mg disintegrating 4 mg PO QID PRN nausea and 11/22/23 tablet vomiting #10 tabs Allergies Allergy/AdvReac Type Severity Reaction Status Date / Time hydrocodone [From Vicodin] Allergy Verified 07/21/23 05:15 propoxyphene Allergy Verified 07/21/23 05:15 [From Darvocet-N] [facility] Disclaimer: The information contained in this section may have been updated after the celia ent was seen, as this information can be updated by other users. Medical History No significant past medical history Surgical History H/O left wrist surgery History of tonsillectomy Family History Other Family history of diabetes mellitus type II Social History Smoking Status: Current every day smoker tobacco type: cigarettes packs per day: 1 second hand exposure: No alcohol intake: never substance use type: denies use current occupational status: unemployed Travel in the last 8 weeks: None household members: significant other and children housing: house current occupation: [employer] current occupational exposures/hazards: No ROS Obtained: Yes Systems reviewed as appropriate & no additional complaints except as documented Physical Exam General General appearance: alert and in no apparent distress Respiratory Respiratory exam: Present normal lung sounds bilaterally Cardiovascular Cardiovascular exam: Present regular rate Neurological Exam Neurological exam: Present alert and oriented X3 Medical Decision Making Medical Records Screening: Per USPSTF and CDC recommendations, given the prevalence of disease in our region, it is our hospital?s policy to screen for HIV and viral Hepatitis for all patients aged 18 and over and those with ongoing risk factors. Ye Inquiry Pt receiving controlled substance: No Vital Signs: 11/22/23 18:55 Temperature 98.5 F Temperature Source Oral Pulse Rate [Right] 88 Respiratory Rate 18 Blood Pressure [Right Arm] 126/82 Blood Pressure Mean [Right Arm] 96 Blood Pressure Source [Right Arm] Automatic Cuff 02 Sat by Pulse Oximetry 96 Oxygen Delivery Method Room Air Lab Data Lab results reviewed: Yes I reviewed the patient's lab results. Orders (Tests/Meds): ED MEDICATIONS Discontinued Medications Generic Name Dose Route Start Last Admin Trade Name Tr PRN Reason Stop Dose Admin Ondansetron HCl 4 mg 11/22/23 19:08 11/22/23 19:18 Ondansetron 4mg Odt SL 11/22/23 19:09 4 mg ONCE ONE Administration ORDERS Category Date Time Status HIV (1&2) Antibody Rapid Stat Lab 11/22/23 18:56 Received Hep C Ab with Reflex to RNA Stat Lab 11/22/23 18:56 Received Rapid PCR Covid and Flu A/B Stat Lab 11/22/23 19:18 Received Medical Decision Narrative: In summary patient is a 43-year-old male who presents to the emergency department for evaluation of nausea and loose stool. Patient is hemodynamically stable upon arrival, afebrile. Zickel exam is unremarkable and nonfocal including normal breath sounds a benign abdominal exam with no rebound no guarding no rigidity. Normal bowel sounds. Patient is passing flatus and tolerating oral intake. Differential diagnosis includes gastroenteritis versus viral syndrome. Initial workup will be conducted with COVID and flu swabs. Initial interventions include Zofran. Via shared decision making and patient directed discharge due to the time frame to get the COVID and flu swabs patient is agreeable for me to call him with the results. Will send in a prescription for Zofran to his pharmacy after first dose administered here. Will also send him in Bromfed. As patient has no red flags for any other serious or life- threatening illness further workup is deferred. Critical Care Critical Care Time Critical Care Time: No
[2023-11-22 18:55] VITALS: BP 126/82; PULSE 88; RESP 18; TEMP 36.9; O2SAT 96; BMI 31.4
[2023-11-22] MEDS: ONDANSETRON 4MG ODT 4 MG SL (19:18)
[2023-11-22 19:33] VITALS: BP 125/81; PULSE 73; RESP 19; TEMP 36.7; O2SAT 98
[2023-11-22 19:53] LABS: HIV (1&2) Antibody Rapid NONREACTIVE (NONREACTIVE)
[2023-11-24 05:13] LABS: HCV Ab Non Reactive (Non Reactive)
== END 2023-11-22 19:38 | disposition home or self-care (01) ==
PROVIDERS: Emergency Provider Emergency Medicine; PCP Internal Medicine
DX: R11.0 Nausea (principal); R05.9 Cough, unspecified; J06.9 Acute upper respiratory infection, unspecified
CPT/HCPCS: 86803; 87389; 87635; 99283; Q0162

== ENCOUNTER 2023-12-04 14:31 | Outpatient (CLI) | payer OTHER, SELFPAY | END 2023-12-04 23:59 | disposition home or self-care (01) | LOC: LAB.DROPOF 12-05 13:20 | PROVIDERS: PCP Student in an Organized Health Care Education/Training Program; Visit Provider Student in an Organized Health Care Education/Training Program | DX: J02.9 Acute pharyngitis, unspecified (principal); Z72.0 Tobacco use | CPT/HCPCS: 87070 ==

== ENCOUNTER 2023-12-31 16:51 | Emergency (ER) | payer OTHER, SELFPAY ==
[2023-12-31 17:05] VITALS: BP 127/70; PULSE 89; RESP 20; TEMP 36.8; O2SAT 96; BMI 29.8
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
[2023-12-31 17:37] VITALS: BP 127/70; PULSE 89; RESP 20; TEMP 36.8; O2SAT 96
== END 2023-12-31 17:43 | disposition home or self-care (01) ==
PROVIDERS: Emergency Provider Nurse Practitioner; PCP Internal Medicine
DX: S76.311A Strain of muscle, fascia and tendon of the posterior muscle group at thigh level, right thigh, initial encounter (principal); X50.0XXA Overexertion from strenuous movement or load, initial encounter
CPT/HCPCS: 99213; G0381

== ENCOUNTER 2024-01-01 15:28 | Outpatient (CLI) | payer OTHER, SELFPAY ==
[2024-01-01 18:26] LABS: Basophils # 0.1 K/mm3 (0-0.2); Basophils % 0.8 % (0.1-2.0); Eosinophils # 0.1 K/mm3 (0.0-0.4); Eosinophils % 1.7 % (0.1-12.0); Hematocrit 45.7 % (42.0-52.0); Hemoglobin 15.8 g/dL (14.1-18.0); Lymphocytes # 1.7 K/mm3 (0.7-4.5); Lymphocytes % 27.1 % (10-50); Mean Corpuscular HGB Conc 34.5 g/dL (31.8-35.4); Mean Corpuscular Hemoglobin 31.2 pg (27.0-31.2); Mean Corpuscular Volume 90.6 fl (80-94); Monocytes # 0.4 K/mm3 (0.1-1.0); Monocytes % 6.1 % (1.7-9.3); Neutrophils # 4.1 K/mm3 (1.8-7.8); Neutrophils % 64.4 % (37.0-80.0); Platelet Count 239 K/mm3 (142-424); Red Blood Count 5.05 M/mm3 (4.60-6.20); White Blood Count 6.3 K/mm3 (4.8-10.8)
[2024-01-01 18:41] LABS: Albumin Level 4.6 g/dl (3.5-5.0); Chloride 105 mmol/L (98-107)
[2024-01-01 18:42] LABS: Sodium 141 mmol/L (136-145)
[2024-01-01 18:44] LABS: Alanine Aminotransferase 21 U/L (12-78); Aspartate Amino Transferase 26 U/L (17-59); Blood Urea Nitrogen 14 mg/dl (9-20); Carbon Dioxide 25 mmol/L (22.0-30.0); Estimated Glomerular Filt Rate 106 ml/min (>60); GFR (African American) 128 ML/MIN (>60)
[2024-01-01 18:45] LABS: Albumin/Globulin Ratio 1.8 (1.1-1.8); Alkaline Phosphatase 69 U/L (38-126); Bilirubin,Total 0.6 mg/dl (0.2-1.3); Calcium 9.5 mg/dl (8.4-10.2); Chol/HDL Ratio 3.2 (1-3.5); Cholesterol 139 mg/dl (140-200); Globulin 2.5 g/dL (1.3-3.2); Glucose 102 mg/dl (74-100); HDL Cholesterol 44 mg/dl (40-60); Total Protein,Serum 7.1 g/dl (6.3-8.2); Triglycerides 157 mg/dl (30-150); VLDL Cholesterol 31 mg/dL (0-40)
[2024-01-01 19:14] LABS: Thyroid Stimulating Hormone 0.58 uIU/mL (0.465-4.68)
[2024-01-01 19:41] LABS: HIV (1&2) Antibody Rapid NONREACTIVE (NONREACTIVE)
[2024-01-03 08:25] LABS: HCV Ab Non Reactive (Non Reactive)
== END 2024-01-01 23:59 | disposition home or self-care (01) ==
LOC: LAB.DROPOF 01-02 12:53
PROVIDERS: PCP Family Medicine; Visit Provider Family Medicine
DX: M79.18 Myalgia, other site (principal); T14.90XA Injury, unspecified, initial encounter
CPT/HCPCS: 80050; 80053; 80061; 82306; 84443; 85025; 86803; 87389

== ENCOUNTER 2024-04-16 11:24 | Emergency (ER) | payer OTHER, SELFPAY ==
[2024-04-16 11:26] VITALS: BP 122/75; PULSE 85; RESP 16; TEMP 36.6; O2SAT 97; BMI 30.7
--- NOTE | 2024-04-16 11:29 | ED_ITS ---
Discharge Plan Disposition Patient Disposition: Home, Self-Care Condition: Good Prescriptions Prescriptions: New oseltamivir [Tamiflu] 75 mg capsule 75 mg PO BID 5 Days Qty: 10 0RF ketorolac 10 mg tablet 10 mg PO Q8H PRN (Reason: pain) 5 Days Qty: 14 0RF Referrals Follow up/Referrals: Jose Alejandro Beasley DO [Primary Care Provider] - See instructions Activity Restrictions/Add. Instructions Additional Instructions/Restrictions: As we discussed, you tested positive for the flu. I have prescribed Tamiflu which is a medication that can help shorten the severity and length of your symptoms. I also prescribed a medication called ketorolac which can help with some of your achiness. Please do not take this with ibuprofen, you can take this with Tylenol as well though. Please use the inhaler as needed, particularly if you are experiencing severe cough or wheezing. Please return with any new or worsening symptoms. Clinical Impressions Clinical Impression: Influenza A Stand Alone Forms Stand Alone Forms: Work/School Release Print Language Print Language: Brazilian Discharge ED Provider: Vivek Doyle General Adult HPI General Chief complaint: Upper Respiratory Infection Stated complaint: bodyaches, fever, sore throat, neck pain, weakness Time Seen by Provider: 04/16/24 11:29 History of Present Illness HPI narrative: Patient presents for evaluation of myalgias, cough, congestion, gradual in onset starting within the past 24 hours, constant, stable in course. No previous therapies. Patient has had sick contact with upper respiratory illness that reportedly tested negative for COVID, influenza, strep pharyngitis. He denies sore throat. Denies any hemoptysis. He denies any chest pain outside of achiness that is reproducible to palpation on his lateral thorax. Does describe history of smoking. No reported fevers. Denies any history of COPD. Please note that above description of symptoms, in this electronic medical record under categorization of recalled from ER triage doctor by RN are reflective of an initial nursing assessment, however, is not reflective of my full history and physical exam that was personally taken and clarified. Consequentially, this preceding description of symptoms, which may include the patient's categorized chief complaint in the EMR, do not reflect my personal clinical impression, and the ultimate description of history of present illness and patient stated complaints should be deferred to this section of the note. Unless stated otherwise or congruent with this section of the note, additional signs, symptoms, or incongruence should be interpreted as inaccurate with my clinical impression. Related Data Previous Rx's ?Medication ?Instructions ?Recorded ketorolac 10 mg tablet 10 mg PO Q8H PRN pain 5 days #14 04/16/24 tabs oseltamivir 75 mg capsule (Tamiflu) 75 mg PO BID 5 days #10 caps 04/16/24 Allergies Allergy/AdvReac Type Severity Reaction Status Date / Time hydrocodone (From Vicodin) Allergy Verified 01/01/24 15:15 propoxyphene (From Allergy Verified 01/01/24 15:15 Darvocet-N) [facility] Disclaimer: The information contained in this section may have been updated after the patient was seen, as this information can be updated by other users. Medical History No significant past medical history Surgical History History of tonsillectomy H/O left wrist surgery Family History Other Family history of diabetes mellitus type II Social History Smoking Status: Current every day smoker tobacco type: cigarettes packs per day: 1 second hand exposure: No alcohol intake: never substance use type: denies use current occupational status: unemployed Travel in the last 8 weeks: None household members: significant other and children housing: house current occupation: [employer] current occupational exposures/hazards: No Have you lived/traveled outside [place] in past 30 days?: No Contact w/someone who lives/traveled outside US past 30 days?: No Exposure to someone with infectious disease in past 14 days?: No Do you have a fever (greater than 100.4 F or 38 C)?: Yes Have you tested positive for COVID-19: No Exposed to someone with COVID-19 in past 14 days?: No Do you have a sore throat?: Yes Do you have a cough?: No Do you have any weakness?: Yes Do you have any diarrhea?: No Are you experiencing any unusual bleeding?: No Do you have any muscle aches/pain?: Yes Do you have any abdominal pain?: No Are you experiencing loss of taste or smell?: No Other Medical History Have you received the Flu Vaccine for this season: No Have you received the Pneumonia Vaccine: No ROS Obtained: Yes other As per HPI Physical Exam General General appearance: alert and in no apparent distress Head Head exam: atraumatic and normocephalic Eye Eye exam: Present normal appearance Neck Neck exam: Present normal inspection Chest Chest inspection: Present normal inspection and symmetric chest wall rise Respiratory Respiratory exam: Present normal lung sounds bilaterally; Absent respiratory distress Cardiovascular Cardiovascular exam: Present regular rate and normal rhythm Abdominal Exam Abdominal exam: Present soft Neurological Exam Neurological exam: Present alert and oriented X3 Psychiatric Psychiatric exam: Present normal affect and normal mood Skin Skin exam: Present warm and dry Medical Decision Making Medical Records Medical records reviewed: Yes I reviewed the patient's medical records. Screening: Per USPSTF and CDC recommendations, given the prevalence of disease in our region, it is our hospital?s policy to screen for HIV and viral Hepatitis for all patients aged 18 and over and those with ongoing risk factors. Ye Inquiry Pt receiving controlled substance: No Vital Signs: 04/16/24 11:26 04/16/24 11:41 04/16/24 11:53 Temperature 97.8 F Temperature Source Oral Pulse Rate 110 H Pulse Rate [Radial] 85 Respiratory Rate 16 Blood Pressure 121/73 Blood Pressure [Right Arm] 122/75 Blood Pressure Mean 80 Blood Pressure Mean [Right Arm] 90 Blood Pressure Source Blood Pressure Source [Right Arm] Automatic Cuff Blood Pressure Position Blood Pressure Position [Right Arm] Sitting 02 Sat by Pulse Oximetry 97 97 Oxygen Delivery Method Room Air Room Air 04/16/24 12:26 Temperature 97.8 F Temperature Source Oral Pulse Rate 110 H Pulse Rate [Radial] Respiratory Rate 16 Blood Pressure 121/73 Blood Pressure [Right Arm] Blood Pressure Mean Blood Pressure Mean [Right Arm] Blood Pressure Source Automatic Cuff Blood Pressure Source [Right Arm] Blood Pressure Position Sitting Blood Pressure Position [Right Arm] 02 Sat by Pulse Oximetry Oxygen Delivery Method Room Air Lab Data Lab Results 04/16/24 11:30: SARS-CoV-2 (PCR) Not detected, Influenza A Untype (PCR) Detected A, Influenza Type B (PCR) Not detected Orders (Tests/Meds): ED MEDICATIONS Discontinued Medications Generic Name Dose Route Start Last Admin Trade Name Freq PRN Reason Stop Dose Admin Albuterol Sulfate 4 puff 04/16/24 11:56 04/16/24 12:15 Albuterol-Hfa 90mcg/Puff Inhaler 8gm 04/16/24 11:57 4 puff ONCE ONE Administration Ketorolac Tromethamine 15 mg 04/16/24 11:56 04/16/24 12:10 Ketorolac 30mg/Ml Vial IM 04/16/24 11:57 15 mg ONCE ONE Administration Miscellaneous 1 unit 04/16/24 11:56 04/16/24 12:16 Aerochamber/Optihaler MC 04/16/24 11:57 1 unit ONCE ONE Administration ORDERS Category Date Time Status Rapid PCR Covid and Flu A/B Stat Lab 04/16/24 11:30 Completed Medical Decision Narrative: Patient with history and exam per above presenting for evaluation of upper respiratory infectious symptoms Diagnoses considered include COVID, influenza, other viral URI, pneumonia, however no clinical evidence to suggest consolidative process. ED workup and treatment included: ED MEDICATIONS Discontinued Medications Generic Name Dose Route Start Last Admin Trade Name Freq PRN Reason Stop Dose Admin Albuterol Sulfate 4 puff 04/16/24 11:56 04/16/24 12:15 Albuterol-Hfa 90mcg/Puff Inhaler 8gm 04/16/24 11:57 4 puff ONCE ONE Administration Ketorolac Tromethamine 15 mg 04/16/24 11:56 04/16/24 12:10 Ketorolac 30mg/Ml Vial IM 04/16/24 11:57 15 mg ONCE ONE Administration Miscellaneous 1 unit 04/16/24 11:56 04/16/24 12:16 Aerochamber/Optihaler MC 04/16/24 11:57 1 unit ONCE ONE Administration ORDERS Category Date Time Status Rapid PCR Covid and Flu A/B Stat Lab 04/16/24 11:30 Completed Labs were independently interpreted by me, significant for influenza positive My clinical impression at this time is most consistent with influenza I discussed my clinical impression with patient and answered all questions. At this time, the evidence for any other entities in the differential is insufficient to warrant any further testing or ED observation. This was explained to the patient. The patient was advised that persistent or worsening symptoms require further evaluation. Critical Care Critical Care Time Critical Care Time: No
--- NOTE | 2024-04-16 11:34 | PC.NURSE ---
covid/flu swab sent to lab
[2024-04-16 11:37] LABS: Coronavirus 19, PCR Not Detected (NotDetected); Influenza B, PCR Not Detected (NotDetected)
[2024-04-16 11:41] VITALS: PULSE 110; O2SAT 97
[2024-04-16 11:53] VITALS: BP 121/73
[2024-04-16 11:59] LABS: Influenza A, PCR Detected (NotDetected)
--- NOTE | 2024-04-16 12:03 | PC.NURSE ---
call made to respiratory to come and teach pt about inhaler to be sent home with him.
[2024-04-16] MEDS: KETOROLAC 30MG/ML VIAL 15 MG IM (12:10)
[2024-04-16] MEDS: ALBUTEROL-HFA 90MCG/PUFF INHALER 8GM 4 PUFF IH (12:15)
[2024-04-16] MEDS: AEROCHAMBER/OPTIHALER 1 UNIT MC (12:16)
[2024-04-16 12:26] VITALS: BP 121/73; PULSE 110; RESP 16; TEMP 36.6; O2SAT 97
== END 2024-04-16 12:28 | disposition home or self-care (01) ==
PROVIDERS: Emergency Provider Emergency Medicine; PCP Internal Medicine
DX: J10.1 Influenza due to other identified influenza virus with other respiratory manifestations (principal); R05.9 Cough, unspecified; R09.81 Nasal congestion; M79.10 Myalgia, unspecified site; F17.210 Nicotine dependence, cigarettes, uncomplicated; Z20.828 Contact with and (suspected) exposure to other viral communicable diseases
CPT/HCPCS: 87636; 96372; 99283; J1885

== ENCOUNTER 2024-08-22 12:16 | Emergency (ER) | payer OTHER, SELFPAY ==
--- OUTSIDE RECORDS SUMMARY | 2015-06-04 05:50 | XMS_ITS | Continuity of Care Document ---
Author Organization [facility] Address [address] [place] [address] Phone Care Team Providers Care Planer Tailer Name Role Phone Kaushik Robbins MD Unavailable [...] Available - Active Procedures Procedure Date [facility]patient [facility] 2015 Office/[place]patient visit,[place], [facility] 2015 X-ray exam of pelvis, 1-2 views 016 Advance Directives Directive Yes / No Effective Date File Name No Information Encounters Encounter Description Practice Location Reason(s) For Visit Diagnoses Date Provider Providers Copied on Encounter Office[facility], [facility] [employer] [place], [place], [facility], tel:[phone] [facility] No Information 6 [place] Kaushik. [facility] [employer] [place], [place], [id number] , [place]. tel:[phone] [facility], [facility] [place], [address], tel:[phone] [facility] No Information 6 [place] Kaushik. [address] [facility] [place], [place], [id number] , [place]. [phone] Family History Family Member Type Diagnosis Age At Onset Problem (finding) Family history of hyper tension Problem (finding) Family history of diabetes mellitus in first degree relative Problem (finding) Family history of Heart disease Payers Payer name Insurance type Covered libertarian ID Authortelma grey(s) [employer] [facility] Medicaid - [id number] [id number] 1 Social History Type Description Quantity Date Captured Comments Sex Male Smoking Status No Information Chief Complaint And Reason For Visit No Information Reason For Referral Reason For Referral No Information Plan Of Treatment Date Type Action Status Future Order: Radiology Order MR I [place] WO Contrast ([id number]), Ordered on: Ordered History Of Present Illness Encounter Date Complaint History Of Prese nt Illness No Information Functional Status Date Functional Assessmen t No Information Instructions Date Instruction Additional Infor mation No Information Assessments Type Assessment Date No Information Patient Care Teams Name Effective Dates (start - stop) Status Members No Information
[2024-08-22 12:23] VITALS: BP 119/82; PULSE 93; RESP 18; TEMP 36.7; O2SAT 95; BMI 30.7
[2024-08-22 12:28] LABS: Coronavirus 19, PCR Not Detected (NotDetected); Influenza A, PCR Not Detected (NotDetected); Influenza B, PCR Not Detected (NotDetected)
--- OUTSIDE RECORDS SUMMARY | 2024-08-22 12:39 | XMS_ITS | Clinical Summary ---
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 Allergies, Adverse Reactions, Alerts No information available. Results Date Name Value Unit Range Flag Description Office Visit: COVID-19 Evalu ation rm 15 +strep LABS ORDERED Strep Screen 57992 Laboratory tests ordered RAPID STREP positive Streptoc occus pyogenes DNA [Presence] in Throat by NESS with probe detection Plan of Care Type Date Detail Pending order Strep Screen 878 [id number] Procedures Code Procedure Name Date Entry Date CPT-22749 Strep Screen 52345 0 9 Vital Signs No information available. Immunizations No information available. Advance Directives No information available.
--- OUTSIDE RECORDS SUMMARY | 2024-08-22 12:39 | XMS_ITS | Clinical Summary ---
Author Organization [facility] Address [address] [place] [address] Care Team Providers Care On Site Nurse Name Role Phone Pcp, No Primary Care Provider Unavailabl e Allergies No known active allergies Social History Tobacco Use Types Packs/Day Years Used Date Smoking Tobacco: Never Assessed Sex and Gender Information Value Date Recorded Sex Assigned at Not on file Legal Sex Male 2:14 PM EDT Gender Identity Not on file Sexual Orientation Not on file Last Filed Vital Signs Vital Sign Reading Time Taken Comments Blood Pressure 131/69 12/22/2022 6:22 PM EDT Pulse 95 12/22/2022 6:58 PM EDT Temperature 37.4 C (99.4 F) 12/22/2022 6:22 PM EDT Respiratory Rate 14 12/22/2022 6:58 PM EDT Oxygen Saturation 97% 12/22/2022 7:19 PM EDT Inhaled Oxygen Concentration - - Weight 95.7 kg (210 lb 15.7 oz) 12/22/2022 2:39 PM EDT Height - - Body Mass Index - - Plan of Treatment Health Maintenance Due Date Last Done Comments [facility]-Depression Screening 1980 [facility]-Infant/Child/Adol SDOH Screenings 1980 [facility]-Varicella Vaccines (1 of 2 - 13+ 2-dose series) 1993 HPV Vaccines (1 - Male 3-dose series) 1995 [facility]- SDOH Screenings 1998 [facility]-Adult SDOH Screenings 1998 [facility]-Hepatitis B Vaccines (1 of 3 - 19+ 3-dose series) 1999 [id number] Vaccine ( season) 2023 [facility]-Influenza Vaccine (Season Ended) 2024 02/23/2020, 01/18/2019 [facility]-Zoster Vaccines (1 of 2) 2030 [facility]-DTaP,Tdap,and Td Vaccines (2 - Td or Tdap) 09/22/2030 09/22/2020 [facility]-HIV Screening Completed 12/22/2022 [facility]-Hepatitis C Screening Completed 12/22/2022 [facility]-HIB Vaccines Aged Out No longer e ligible based on patient's age to complete this topic [facility]-Hepatitis A Vaccines Aged Out No longer eligible based on patient's age to complete this topic [facility]-IPV Vaccines Aged Out No longer e ligible based on patient's age to complete this topic [facility]-Pneumococcal Vaccine: Pediatrics (0 to 5 Years) and At-Risk Patients (6 to 49 Years) Aged Out No longer eligible b ased on patient's age to complete this topic [facility]-Rotavirus Vaccines Aged Out No lo nger eligible based on patient's age to complete this topic Procedures Procedure Name Priority Date/Time Associated Diagnosis Comments HEPATITIS C ANTIBODY - ED W/REFLEX TO HCV QUANT PCR STAT 12/22/2022 3:23 PM EDT ED HIV 1/2 ANTIBODY/ANTIGEN SCREEN WITH REFLEX TO HIV I/II DIFFERENTIATION STAT 12/22/2022 3:23 PM EDT from Last 3 Months or Most Recently Relevant to Health Maintenance Results * ED HIV 1/2 Antibody/Antigen Screen w/Reflex to HIV 1/2 Differentiation (12/22/2022 3:23 PM EDT) HIV 1 & 2 Antibody/Antigen Screen Non Reactive Non Reactive 12/22/2022 4:[address] [facility] Comment:Screening for HIV 1 & 2 antibodies, and P24 antigen is NONREACTIVE. No confirmatory testing is required. Blood Venous blood specimen / Unknown Venipuncture / Unknown 12/22/2022 3:23 PM EDT 12/22/2022 3:47 PM EDT [facility] BLOOD ORDERABLES Final Re sult [facility] [address] [place] [address] * Hepatitis C Antibody - ED (12/22/2022 3:23 PM EDT) Hepatitis C Antibody Negative Negative 12/22/2022 4:30 PM EDT [facility] Blood Venous blood specimen / Unknown Venipuncture / Unknown 12/22/2022 3:23 PM EDT 12/22/2022 3:48 PM EDT [facility] BLOOD ORDERABLES Final Re sult [facility] [address] [place] [address] from Last 3 Months or Most Recently Relevant to Health Maintenance Insurance [employer] [facility] MEDICAID Care Teams On Site Nurse Relationship Specialty Start Date End Date Pcp, No [address] [place] [address] PCP - General Family Medicine 12/22/22
--- NOTE | 2024-08-22 12:41 | ED_ITS ---
<Statement entered by Harriet Dale MD - 08/22/24 15:32> I was consulted by the MAYRA, and we discussed the complexity of the problems being addressed. I approved the treatment and management plan for this patient's care in the emergency department, thus performing a substantive portion of the medical decision making. Harriet Dale MD, SHIRIN, FACEP Discharge Plan Disposition Patient Disposition: Home, Self-Care Condition: Good Prescriptions Prescriptions: No Action oseltamivir [Tamiflu] 75 mg capsule 75 mg PO BID 5 Days Qty: 10 0RF ketorolac 10 mg tablet 10 mg PO Q8H PRN (Reason: pain) 5 Days Qty: 14 0RF Referrals Follow up/Referrals: Provider,Referral, [Primary Care Provider, Medical] - See instructions Activity Restrictions/Add. Instructions Additional Instructions/Restrictions: Please return to the emergency department with any worsening signs or symptoms, utilize [id number] cold and flu medications as needed for symptomatic relief, utilize anti-inflammatory medication/ibuprofen and Tylenol for other symptomatic relief. Please follow-up with your family doctor in the upcoming days/weeks. Clinical Impressions Clinical Impression: Acute viral syndrome Instructions Patient Instructions: DI for Viral Upper Respiratory Infection -- Adult Print Language Print Language: Japanese Discharge ED Provider: Harriet Dale General Adult HPI General Chief complaint: Upper Respiratory Infection Stated complaint: diarrhea, congestion, B/A, H/A, chills Time Seen by Provider: 08/22/24 12:29 Mode of Arrival: Ambulatory Source of Information: Patient Description of Symptoms (Recalled from ER Triage Doc. by RN): pt has body aches since last night. History of Present Illness HPI narrative: 44-year-old male presents to the emergency department with cough that is productive, describes it as phlegm , subjective fever chills, no recorded Tmax, episodes of diarrhea, body aches, congestion that started last night, patient denies any recent sick contacts, denies any chest pain, no shortness of breath, no real abdominal pain, no constipation, no hematuria melena hematochezia or hematemesis, no urinary type symptomatology, no vomiting, patient has no other real relevant past medical history takes no other medications at home, is a current everyday smoker, denies any alcohol or drug use. Initial triage vitals unremarkable. Onset (ago): hour(s) Related Data Previous Rx's ?Medication ?Instructions ?Recorded ketorolac 10 mg tablet 10 mg PO Q8H PRN pain 5 days #14 04/16/24 tabs oseltamivir 75 mg capsule (Tamiflu) 75 mg PO BID 5 day s #10 caps 04/16/24 Allergies Allergy/AdvReac Type Severity Reaction Status Date / Time hydrocodone (From Vicodin) Allergy Verified 01/01/24 15:15 propoxyphene (From Allergy Verified 01/01/24 15:15 Darvocet-N) [facility] Disclaimer: The information contained in this section may have been updated after the patient was seen, as this information can be updated by other users. Medical History No significant past medical history Surgical History History of tonsillectomy H/O left wrist surgery Family History Other Family history of diabetes mellitus type II Social History Smoking Status: Current every day smoker tobacco type: cigarettes packs per day: 1 second hand exposure: No alcohol intake: never substance use type: denies use current occupational status: unemployed Travel in the last 8 weeks?: None household members: significant other and children housing: house current occupation: [employer] current occupational exposures/hazards: No Have you lived/traveled outside [place] in past 30 days?: No Contact w/someone who lives/traveled outside US past 30 days?: No Exposure to someone with infectious disease in past 14 days?: No Do you have a fever (greater than 100.4 F or 38 C)?: No Have you tested positive for COVID-19?: No Exposed to someone with COVID-19 in past 14 days?: No Do you have a sore throat?: No Do you have a cough?: No Do you have any weakness?: No Do you have any diarrhea?: Yes Are you experiencing any unusual bleeding?: No Do you have any muscle aches/pain?: No Do you have any abdominal pain?: No Are you experiencing loss of taste or smell?: No Other Medical History Have you received the Flu Vaccine for this season: No Have you received the Pneumonia Vaccine: No ROS Obtained: Yes All systems reviewed & no additional complaints except as documented Physical Exam General General appearance: alert and in no apparent distress Head Head exam: atraumatic and normocephalic Eye Eye exam: Present PERRL and EOMI ENT ENT exam: Present mucous membranes moist Neck Neck exam: Present normal inspection Chest Chest inspection: Present normal inspection and symmetric chest wall rise Respiratory Respiratory exam: Present normal lung sounds bilaterally; Absent respiratory distress, wheezes, stridor or accessory muscle use Cardiovascular Cardiovascular exam: Present regular rate and normal rhythm Abdominal Exam Abdominal exam: Present soft; Absent tenderness, guarding or rebound Extremities Exam Extremities exam: Present normal inspection Neurological Exam Neurological exam: Present alert and oriented X3 Psychiatric Psychiatric exam: Present normal affect Skin Skin exam: Present warm and dry Medical Decision Making Medical Records Medical records reviewed: Yes I reviewed the patient's medical records. Screening: Per USPSTF and CDC recommendations, given the prevalence of disease in our region, it is our hospital?s policy to screen for HIV and viral Hepatitis for all patients aged 18 and over and those with ongoing risk factors. Ye Inquiry Pt receiving controlled substance: No Ye was queried for this patient: No Vital Signs: 08/22/24 12:23 Temperature 98.1 F Temperature Source Oral Pulse Rate [Right] 93 H Respiratory Rate 18 Blood Pressure [Right Arm] 119/82 Blood Pressure Mean [Right Arm] 94 02 Sat by Pulse Oximetry 95 Lab Data Lab Results 08/22/24 12:20: SARS-CoV-2 (PCR) Not detected, Influenza A Untype (PCR) Not detected, Influenza Type B (PCR) Not detected Orders (Tests/Meds): ORDERS Category Date Time Status Rapid PCR Covid and Flu A/B Stat Lab 08/22/24 12:20 Completed Medical Decision Narrative: 44-year-old male presents emergency department with cough congestion body aches, diarrhea differential diagnose include but not limited to, acute URI, viral syndrome, acute bronchitis, influenza, gastroenteritis among others. I discussed this patient's case with the attending physician Dr. Dale. I offered laboratory studies the patient, however patient at this time, would like to be swabbed for COVID , will obtain rapid PCR COVID and flu, shared decision making utilized, most likely viral syndrome in the setting of hemodynamically stable, no other acute symptomatology, and unremarkable physical exam. Will give 400 mg p.o. ibuprofen and 500 mg p.o. Tylenol for symptomatic relief. COVID 19, influenza A and B are negative per PCR. I discussed the results with the patient the bedside patient is in agreement with current treatment plan/discharge plan, recommend [id number] cold and flu medications for symptomatic relief, use anti-inflammatory medications as needed for symptomatic relief. Please return to the emergency room with any worsening signs or symptoms. Please follow-up with your PCP. Patient voiced u nderstanding and agreement current treatment plan/discharge plan. Critical Care Critical Care Time Critical Care Time: No
[2024-08-22] MEDS: ACETAMINOPHEN 500MG TAB 500 MG PO (13:02)
[2024-08-22] MEDS: IBUPROFEN 400 MG TABLET PO (13:02)
[2024-08-22 13:04] VITALS: BP 126/84; PULSE 93; RESP 18; TEMP 36.8; O2SAT 95
== END 2024-08-22 13:05 | disposition home or self-care (01) ==
PROVIDERS: Emergency Provider Student in an Organized Health Care Education/Training Program
DX: R51.9 Headache, unspecified (principal); R50.9 Fever, unspecified; R05.9 Cough, unspecified; B34.9 Viral infection, unspecified
CPT/HCPCS: 87636; 99283

== ENCOUNTER 2024-09-21 17:12 | Emergency (ER) | payer OTHER, SELFPAY ==
--- OUTSIDE RECORDS SUMMARY | 2015-06-04 05:50 | XMS_ITS | Continuity of Care Document ---
Author Organization [facility] Address [address] [place] [address] Phone Care Team Providers Care Black Leather Buffer Name Role Phone Kaushik Robbins MD Unavailable [...] Available - Active Procedures Procedure Date Office/outpatient visit,[facility], [facility] 2015 Office/outpatient visit,[place], [facility] 2015 X-ray exam of pelvis, 1-2 views 016 Advance Directives Directive Yes / No Effective Date File Name No Information Encounters Encounter Description Practice Location Reason(s) For Visit Diagnoses Date Provider Providers Copied on Encounter Office/outpat ient visit,[facility], [facility], [facility] [employer] [place], [place], [facility], tel:[phone] [facility] No Information 6 [place] Kaushik. [facility] [employer] [place], [place], [id number] , [place]. tel:[phone] [facility], [facility] [place], [address], tel:[phone] [facility] No Information 6 [place] Kaushik. [address] [facility] [place], [place], [id number] , [place]. [phone] Family History Family Member Type Diagnosis Age At Onset Problem (finding) Family history of hyper tension Problem (finding) Family history of diabetes mellitus in first degree relative Problem (finding) Family history of Heart disease Payers Payer name Insurance type Covered constitution party ID Authortelma grey(s) [employer] [facility] Medicaid - [id number] [id number] 1 Social History Type Description Quantity Date Captured Comments Sex Male Smoking Status No Information Chief Complaint And Reason For Visit No Information Reason For Referral Reason For Referral No Information Plan Of Treatment Date Type Action Status Future Order: Radiology Order MR I [place] WO Contrast ([id number]), Ordered on: Ordered History Of Present Illness Encounter Date Complaint History Of Prese nt Illness No Information Functional Status Date Functional Assessmen t No Information Instructions Date Instruction Additional Infor mation No Information Assessments Type Assessment Date No Information Patient Care Teams Name Effective Dates (start - stop) Status Members No Information
--- NOTE | 2024-09-21 17:16 | HMH.EDGENADL ---
Discharge Plan Disposition Patient Disposition: Home, Self-Care Condition: Good Prescriptions Prescriptions: New erythromycin 5 mg/gram (0.5 %) ointment 1 applic ophthalmic (eye) QID 7 Days Qty: 84 0RF No Action oseltamivir [Tamiflu] 75 mg capsule 75 mg PO BID 5 Days Qty: 10 0RF ketorolac 10 mg tablet 10 mg PO Q8H PRN (Reason: pain) 5 Days Qty: 14 0RF Referrals Follow up/Referrals: Priscila Wren DO [Emergency Provider, Emergency Medicine] - See instructions Provider,Referral, [Primary Care Provider, Medical] - See instructions Activity Restrictions/Add. Instructions Additional Instructions/Restrictions: Please follow-up with Dr. Hatch, clinical applications specialist. Please call them to schedule an appointment on Monday and let them know that you had a metallic foreign body removed from your eye. Their number is [phone]. If you develop any visual changes please return to the emergency department sooner. Please use the antibiotics 4 times a day for the next week. Return to the emergency department for any acute or worsening symptoms. Clinical Impressions Clinical Impression: Foreign body in eye Print Language Print Language: Salvadorean Discharge ED Provider: Priscila Wren General Adult HPI General Chief complaint: Eye Problems Stated complaint: AO 09/21/24 1500 FB right eye Time Seen by Provider: 09/21/24 17:16 History of Present Illness HPI narrative: Patient is a 44-year-old gentleman with no significant past medical history who presented to the emergency department with a foreign body sensation in his right eye. 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 Patient denies any blurry vision or double vision. Patient states that he has a sensation in his eye and it is irritating. Patient denies any drainage from the eye. Patient does not wear any contacts. Patient states that this has happened to him before and has required a foreign body to be removed from his eye. Patient states that he was wearing protective eyewear but thinks that it went under it. Related Data Previous Rx's ?Medication ?Instructions ?Recorded ketorolac 10 mg tablet 10 mg PO Q8H PRN pain 5 days #14 04/16/24 tabs oseltamivir 75 mg capsule (Tamiflu) 75 mg PO BID 5 days #10 caps 04/16/24 erythromycin 5 mg/gram (0.5 %) eye 1 applic ophthalmic (eye) QID 7 09/21/24 ointment days #84 grams Allergies Allergy/AdvReac Type Severity Reaction Status Date / Time hydrocodone (From Vicodin) Allergy Verified 01/01/24 15:15 propoxyphene (From Allergy Verified 01/01/24 15:15 Darvocet-N) [facility] Disclaimer: The information contained in this section may have been updated after the patient was seen, as this information can be updated by other users. Medical History No significant past medical history Surgical History History of tonsillectomy H/O left wrist surgery Family History Other Family history of diabetes mellitus type II Social History Smoking Status: Current every day smoker tobacco type: cigarettes packs per day: 1 second hand exposure: No alcohol intake: never substance use type: denies use current occupational status: unemployed Travel in the last 8 weeks?: None household members: significant other and children housing: house current occupation: [employer] current occupational exposures/hazards: No Have you lived/traveled outside US in past 30 days?: No Contact w/someone who lives/traveled outside US past 30 days?: No Exposure to someone with infectious disease in past 14 days?: No Do you have a fever (greater than 100.4 F or 38 C)?: No Have you tested positive for COVID-19?: No Exposed to someone with COVID-19 in past 14 days?: No Do you have a sore throat?: No Do you have a cough?: No Do you have any weakness?: No Do you have any diarrhea?: No Are you experiencing any unusual bleeding?: No Do you have any muscle aches/pain?: No Do you have any abdominal pain?: No Are you experiencing loss of taste or smell?: No Other Medical History Have you received the Flu Vaccine for this season: No Have you received the Pneumonia Vaccine: No ROS Obtained: Yes All systems reviewed & no additional complaints except as documented and Yes Systems reviewed as appropriate & no additional complaints except as documented Physical Exam General General appearance: alert and in no apparent distress Head Head exam: atraumatic, normocephalic and normal inspection Eye Eye exam: Present normal appearance, PERRL, EOMI and other (Small punctate foreign body at the 3'oclock position just lateral to the pupil, extraocular movements are intact, mild scleral redness, no drainage, no swelling); Absent scleral icterus ENT ENT exam: Present normal exam and normal external ear exam Neck Neck exam: Present normal inspection and full ROM Chest Chest inspection: Present normal inspection and symmetric chest wall rise Respiratory Respiratory exam: Present normal lung sounds bilaterally; Absent respiratory distress or wheezes Cardiovascular Cardiovascular exam: Present regular rate, normal rhythm and normal heart sounds Abdominal Exam Abdominal exam: Present soft and distention; Absent tenderness, guarding or rebound Extremities Exam Extremities exam: Present normal inspection and full ROM Back Exam Back exam: Present normal inspection and full ROM Neurological Exam Neurological exam: Present alert and oriented X3 Psychiatric Psychiatric exam: Present normal affect and normal mood Skin Skin exam: Present warm and dry Medical Decision Making Medical Records Screening: Per USPSTF and CDC recommendations, given the prevalence of disease in our region, it is our hospital?s policy to screen for HIV and viral Hepatitis for all patients aged 18 and over and those with ongoing risk factors. Ye Inquiry Pt receiving controlled substance: No Vital Signs: 09/21/24 17:19 09/21/24 18:39 Temperature 98.1 F 98.1 F Temperature Source Oral Oral Pulse Rate 75 Pulse Rate [Right Radial] 84 Respiratory Rate 15 15 Blood Pressure 140/75 Blood Pressure [Right Arm] 119/79 Blood Pressure Mean [Right Arm] 92 Blood Pressure Source Automatic Cuff Blood Pressure Source [Right Arm] Automatic Cuff Blood Pressure Position Supine Blood Pressure Position [Right Arm] Supine 02 Sat by Pulse Oximetry 98 Oxygen Delivery Method Room Air Room Air Lab Data Lab results reviewed: Yes I reviewed the patient's lab results. Orders (Tests/Meds): ED MEDICATIONS Discontinued Medications Generic Name Dose Route Start Last Admin Trade Name Freq PRN Reason Stop Dose Admin Fluorescein Sodium 1 mg 09/21/24 17:33 09/21/24 18:12 Fluorescein Sodium 1mg Strip OP 09/21/24 17:34 1 mg ONCE ONE Administration Tetracaine HCl 0 ml 09/21/24 17:33 09/21/24 18:12 Tetracaine 0.5% Opth Loni 15ml OP 09/21/24 17:34 1 ml ONCE ONE Administration Medical Decision Narrative: Patient is a 44-year-old gentleman with no significant past medical history who presented to the emergency department with a foreign body sensation in his right eye. Patient states that he was doing metal work when he felt a piece of metal go up into his eye. Patient states a foreign body sensation and irritation. Patient denies any visual disturbances. Patient does not wear any contacts. On arrival, patient was hemodynamically stable with unremarkable vital signs. Differential includes but not limited to: Foreign body in eye, respiratory, corneal abrasion, corneal ulcer, amongst others. On the naked eye, foreign body was seen in the eye around the 3 o'clock position just lateral to the pupil. It is punctate in nature, black. Fluorescein exam was performed, no evidence of corneal abrasion or corneal ulcer. Soft tip cotton swab was used and foreign body was able to be removed. Slit-lamp exam was performed which showed no rust ring remaining. Patient was sent with erythromycin ointment to take 4 times a day and return precautions were discussed. Patient was advised to follow-up with Dr. Hatch who is the clinical applications specialist here in [place] but also ophthalmology was consulted for them and they agreed to set up clinic appointment for patient to be seen for follow-up. At this time, patient was felt to be appropriate and stable for discharge. Critical Care Critical Care Time Critical Care Time: No
[2024-09-21 17:19] VITALS: BP 119/79; PULSE 84; RESP 15; TEMP 36.7; O2SAT 98; BMI 30.7
--- OUTSIDE RECORDS SUMMARY | 2024-09-21 17:26 | XMS_ITS | Clinical Summary ---
Author Organization [facility] Address [address] [place] [address] Phone Care Team Providers Care Medication Aid Name Role Phone Roni Ibanez MD Primary Care Physician [phone] Conditions or Problems Problem Name Problem Code Onset Date Status Entry Date Provider Comment Standard Description Annotate Strep pharyngitis [id number] (SNOMED CT) Active Jorge A Chavez FIELD SERVICE REPRESENTATIVE Streptococcal sore throat Medications Medication Instructions Start Date Stop Date Generic Name [facility] Provider AMOXICILLIN 875 MG TABS TAKE 1 TABLET BY MOUTH 2 TIMES A DAY 9 AMOXICILLIN [id number] Roni Ibanez MD Medications Administered No information available. Allergies, Adverse Reactions, Alerts No information available. Results Date Name Value Unit Range Flag Description Office Visit: COVID-19 Evalu ation rm 15 +strep LABS ORDERED Strep Screen 72903 Laboratory tests ordered RAPID STREP positive Streptoc occus pyogenes DNA [Presence] in Throat by NESS with probe detection Plan of Care Type Date Detail Pending order Strep Screen [id number] 80 Procedures Code Procedure Name Date Entry Date CPT-55801 Strep Screen 28877 0 9 Vital Signs No information available. Immunizations No information available. Advance Directives No information available.
--- OUTSIDE RECORDS SUMMARY | 2024-09-21 17:27 | XMS_ITS | Clinical Summary ---
Author Organization [facility] Address [address] [place] [address] Care Team Providers Care Core Winder Name Role Phone Pcp, No Primary Care [...] of 3 - 19+ 3-dose series) 1999 [id number] Vaccine ( - 2023- season) 2023 [facility]-Influenza Vaccine (#1) 11/04/202402/22, 01/18/2019 [facility]-Zoster Vaccines (1 of 2) 2030 [...] Reactive Non Reactive 12/22/2022 4:27 PM EDT [facility] Comment:Screening for HIV 1 & 2 antibodies, and P24 antigen is NONREACTIVE. No confirmatory testing is required. Blood Venous blood specimen / Unknown Venipuncture / Unknown 12/22/2022 3:23 PM EDT 12/22/2022 3:47 PM EDT [facility] BLOOD ORDERABLES Final Re sult [facility] [address] [place] [address] * Hepatitis C Antibody - ED (12/22/2022 3:23 PM EDT) Hepatitis C Antibody Negative Negative 12/22/2022 4:30 PM EDT [facility] Blood Venous blood specimen / Unknown Venipuncture / Unknown 12/22/2022 3:23 PM EDT 12/22/2022 3:48 PM EDT us [facility] BLOOD ORDERABLES Final Re sult [facility] [address] [place] [address] from Last 3 Months or Most Recently Relevant to Health Maintenance Insurance [employer] [facility] MEDICAID Care Teams Core Winder Relationship Specialty Start Date End Date Pcp, No [address] [place] [address] PCP - General Family Medicine 12/22/22
[2024-09-21] MEDS: FLUORESCEIN SODIUM 1MG STRIP 1 MG OP (18:12)
[2024-09-21] MEDS: TETRACAINE 0.5% OPTH SOL 15ML OP (18:12)
[2024-09-21 18:39] VITALS: BP 140/75; PULSE 75; RESP 15; TEMP 36.7; O2SAT 99
== END 2024-09-21 18:39 | disposition home or self-care (01) ==
PROVIDERS: Emergency Provider Student in an Organized Health Care Education/Training Program
DX: T15.91XA Foreign body on external eye, part unspecified, right eye, initial encounter (principal); W44.D9XA Other magnetic metal objects entering into or through a natural orifice, initial encounter
CPT/HCPCS: 65222; 99284

== ENCOUNTER 2024-10-11 22:28 | Emergency (ER) | payer OTHER, SELFPAY ==
--- OUTSIDE RECORDS SUMMARY | 2015-06-04 05:50 | XMS_ITS | Continuity of Care Document ---
Author Organization [facility] Address [address] [place] [address] Phone Care Team Providers Care Log Pond Worker Name Role Phone Kaushik Robbins MD Unavailable Unavailable Allergies, Adverse Reactions, Alerts Substance Reaction Status Criticality HYDROCODONE BITARTRATE Active No In formation acetaminophen Active No Information Medications Medication Instructions Dosage Effective Dates (start - stop) Status Comments naproxen 500 mg tablet take 1 tablet by oral route 2 times every day with food 500 MG - Active tramadol 50 mg tablet take 1 tablet by oral route every 6 hours as needed 50 MG - Active PERCOCET (unknown strength) Not Available - Active Procedures Procedure Date Office/outpatient visit,[facility], [facility] [place]patient visit[place] [facility] [place] X-ray exam of pelvis, 1-2 views 016 Advance Directives Directive Yes / No Effective Date File Name No Information Encounters Encounter Description Practice Location Reason(s) For Visit Diagnoses Date Provider Providers Copied on Encounter Office/outpat ient visit,[facility], [facility], [facility] [address] [employer] [place], [place], [facility], tel:[phone] [facility] No Information 6 [place] Kaushik. [facility] [address] [employer] [place], [place], [id number] , [place]. tel:[phone] [facility], [facility] [place], [address], tel:[phone] [facility] No Information 6 [place] Kaushik. [address] [facility] [place], [place], [id number] , [place]. [phone] Family History Family Member Type Diagnosis Age At Onset Problem (finding) Family history of hyper tension Problem (finding) Family history of diabetes mellitus in first degree relative Problem (finding) Family history of Heart disease Payers Payer name Insurance type Covered republican ID Authortelma grey(s) [employer] [facility] Medicaid - [id number] [id number] 1 Social History Type Description Quantity Date Captured Comments Sex Male Smoking Status No Information Chief Complaint And Reason For Visit No Information Reason For Referral Reason For Referral No Information Plan Of Treatment Date Type Action Status Future Order: Radiology Order MR I [place] WO Contrast ([id number]), Ordered on: Ordered History Of Present Illness Encounter Date Complaint History Of Prese nt Illness No Information Functional Status Date Functional Assessmen t No Information Instructions Date Instruction Additional Infor mation No Information Assessments Type Assessment Date No Information Patient Care Teams Name Effective Dates (start - stop) Status Members No Information
--- NOTE | 2024-10-11 22:34 | ED_ITS ---
<Statement entered by Priscila Wren DO - 10/12/24 01:31> I was consulted by the MAYRA, and we discussed the complexity of problems being addressed. I approve the treatment and management plan for this patient's care in the emergency department, thus performing a substantial portion of the medical decision making. Priscila Wren DO Discharge Plan Disposition Patient Disposition: Home, Self-Care Condition: Good Prescriptions Prescriptions: New methylprednisolone [Medrol (Aquilino)] 4 mg tablets,dose pack 4 mg PO QID Qty: 21 0RF Allergy Relief (loratadine) 10 mg capsule 10 mg PO DAILY PRN (Reason: allergy symptoms) Qty: 15 0RF No Action oseltamivir [Tamiflu] 75 mg capsule 75 mg PO BID 5 Days Qty: 10 0RF ketorolac 10 mg tablet 10 mg PO Q8H PRN (Reason: pain) 5 Days Qty: 14 0RF erythromycin 5 mg/gram (0.5 %) ointment 1 applic ophthalmic (eye) QID 7 Days Qty: 84 0RF Referrals Follow up/Referrals: Provider,Referral, MD [Primary Care Provider, Medical] - See instructions Activity Restrictions/Add. Instructions Additional Instructions/Restrictions: You were seen for a bee sting. Return here for fever, severe swelling, tongue, lip or throat swelling, difficulty breathing. Follow up with your doctor next week. Clinical Impressions Clinical Impression: Accidental bee sting Print Language Print Language: Armenian Discharge ED Provider: Priscila Wren General Adult HPI <ALEX Patterson - Last Filed: 10/12/24 00:00> General Chief complaint: Skin/Abscess/Foreign Body Stated complaint: bee sting on both legs Time Seen by Provider: 10/11/24 22:33 History of Present Illness HPI narrative: Patient presents with possible sting to his right calf and left ankle. He reports he was stung about 3 hours ago. Reports something small and black stung him. Denies any history of allergic reaction to bee stings. Denies any tongue lip throat swelling or wheezing. MD complaint: Bee sting Onset (ago): hour(s) Location: left, right and lower extremity Radiation: non-radiation Severity: moderate Quality: other Consistency: constant Relieving factors: none Exacerbating factors: none Associated symptoms: denies other symptoms Related Data Previous Rx's ?Medication ?Instructions ?Recorded ketorolac 10 mg tablet 10 mg PO Q8H PRN pain 5 days #14 04/16/24 tabs oseltamivir 75 mg capsule (Tamiflu) 75 mg PO BID 5 day s #10 caps 04/16/24 erythromycin 5 mg/gram (0.5 %) eye 1 applic ophthalmic (eye) QID 7 09/21/24 ointment days #84 grams loratadine 10 mg capsule (Allergy 10 mg PO DAILY PRN a llergy 10/11/24 Relief (loratadine)) symptoms #15 caps methylprednisolone 4 mg tablets in 4 mg PO QID #21 tab s 10/11/24 a dose pack (Medrol (Aquilino)) Allergies Allergy/AdvReac Type Severity Reaction Status Date / Time hydrocodone (From Vicodin) Allergy Verified 01/01/24 15:15 propoxyphene (From Allergy Verified 01/01/24 15:15 Darvocet-N) [facility] <ALEX Patterson - Last Filed: 10/12/24 00:00> [facility] Disclaimer: The information contained in this section may have been updated after the patient was seen, as this information can be updated by other users. Medical History No significant past medical history Surgical History History of tonsillectomy H/O left wrist surgery Family History Other Family history of diabetes mellitus type II Social History Smoking Status: Current every day smoker tobacco type: cigarettes packs per day: 1 second hand exposure: No alcohol intake: never substance use type: denies use current occupational status: unemployed Travel in the last 8 weeks?: None household members: significant other and children housing: house current occupation: [employer] current occupational exposures/hazards: No Have you lived/traveled outside US in past 30 days?: No Contact w/someone who lives/traveled outside US past 30 days?: No Exposure to someone with infectious disease in past 14 days?: No Do you have a fever (greater than 100.4 F or 38 C)?: No Have you tested positive for COVID-19?: No Exposed to someone with COVID-19 in past 14 days?: No Do you have a sore throat?: No Do you have a cough?: No Do you have any weakness?: No Do you have any diarrhea?: No Are you experiencing any unusual bleeding?: No Do you have any muscle aches/pain?: No Do you have any abdominal pain?: No Are you experiencing loss of taste or smell?: No Other Medical History Have you received the Flu Vaccine for this season: No Have you received the Pneumonia Vaccine: No <ALEX Patterson - Last Filed: 10/12/24 00:00> ROS Obtained: Yes Systems reviewed as appropriate & no additional complaints except as documented Physical Exam <ALEX Patterson - Last Filed: 10/12/24 00:00> General General appearance: alert and in no apparent distress Head Head exam: atraumatic and normocephalic Eye Eye exam: Present normal appearance and EOMI Chest Chest inspection: Present symmetric chest wall rise Respiratory Respiratory exam: Present normal lung sounds bilaterally; Absent wheezes or stridor Cardiovascular Cardiovascular exam: Present regular rate and normal rhythm; Absent systolic murmur Extremities Exam Extremities exam: Present full ROM Neurological Exam Neurological exam: Present alert and oriented X3 Psychiatric Psychiatric exam: Present normal affect and normal mood Skin Skin exam: Present other (right medial calf 4 mm blister noted, left lateral ankle has mild edema and erythema ) Medical Decision Making <ALEX Patterson Last Filed: 10/12/24 00:00> Medical Records Screening: Per USPSTF and CDC recommendations, given the prevalence of disease in our region, it is our hospital?s policy to screen for HIV and viral Hepatitis for all patients aged 18 and over and those with ongoing risk factors. Ye Inquiry Pt receiving controlled substance: No Vital Signs: 10/11/24 23:08 10/11/24 23:13 Temperature 0 F L Pulse Rate 0 L Respiratory Rate 16 0 L Blood Pressure 00/00 L Blood Pressure Source Automatic Cuff Blood Pressure Position Sitting 02 Sat by Pulse Oximetry 0 L Oxygen Delivery Method Room Air Orders (Tests/Meds): ED MEDICATIONS Discontinued Medications Generic Name Dose Route Start Last Admin Trade Name Freq PRN Reason Stop Dose Admin Zinc Acetate/Diphenhydramine 1 gm 10/11/24 22:34 10/11/24 22:52 Diphenhydramine 2% Cream 28gm TP 10/11/24 22:35 Not Given ONCE ONE Medical Decision Narrative: In summary patient is a 44-year-old who presents the emergency department for evaluation of sting by unknown source. Patient has minimal erythema and small blistered areas. Started on Medrol and antihistamine. Advised to use topical Benadryl cream as well. Follow-up with PCP <Priscila Wren DO - Last Filed: 10/12/24 01:31> Vital Signs: 10/11/24 23:08 10/11/24 23:13 Temperature 0 F L Pulse Rate 0 L Respiratory Rate 16 0 L Blood Pressure 00/00 L Blood Pressure Source Automatic Cuff Blood Pressure Position Sitting 02 Sat by Pulse Oximetry 0 L Oxygen Delivery Method Room Air Orders (Tests/Meds): ED MEDICATIONS Discontinued Medications Generic Name Dose Route Start Last Admin Trade Name Freq PRN Reason Stop Dose Admin Zinc Acetate/Diphenhydramine 1 gm 10/11/24 22:34 10/11/24 22:52 Diphenhydramine 2% Cream 28gm TP 10/11/24 22:35 Not Given ONCE ONE Medical Decision Narrative: In summary patient is a 44-year-old who presents the emergency department for evaluation of sting by unknown source. Differential includes but not limited to bug bite, cellulitis, abscess, anaphylaxis, amongst others Patient has minimal erythema and small blistered areas. Patient has no other systemic signs low concern for anaphylaxis. Patient has no spreading redness low concern for cellulitis or abscess based on clinical presentation. No labs or imaging were felt to be indicated. Started on Medrol and antihistamine. Advised to use topical Benadryl cream as well. Follow-up with PCP Critical Care <ALEX Patterson - Last Filed: 10/12/24 00:00> Critical Care Time Critical Care Time: No
--- OUTSIDE RECORDS SUMMARY | 2024-10-11 22:36 | XMS_ITS | Encounter Summary ---
Author Organization Healthcare Address [address] [place] [address] Care Team Providers Care Contact Center Specialist Name Role Phone Pcp, No Primary Care Provider Unavailabl e Encounter Details Date Type Department Care Team (Late st Contact Info) Description 09/23/2024 Telephone [facility] [address] [place] [address] None, None [address] [place] [address] Social History Tobacco Use Types Packs/Day Years Used Date Smoking Tobacco: Never Assessed Sex and Gender Information Value Date Recorded Sex Assigned at Not on file Legal Sex Male 2:14 PM EDT Gender Identity Not on file Sexual Orientation Not on file documented as of this encounter Miscellaneous Notes * Telephone Encounter - Maricruz Webber - 09/24/2024 9:25 AM EDT Triage Note 09/24/2024 9:27 AM Patient declined need to be seen by [facility]. documented in this encounter Plan of Treatment Not on file documented as of this encounter Visit Diagnoses Not on filedocumented in this encounter Care Teams Contact Center Specialist Relationship Specialty Start Date End Date Pcp, No [address] [place] [address] PCP - General Family Medicine 12/22/22 documented as of this encounter
--- OUTSIDE RECORDS SUMMARY | 2024-10-11 22:36 | XMS_ITS | Clinical Summary ---
Author Organization Healthcare Address [address] [place] [address] Care Team Providers Care Manager Leasing Name Role Phone Pcp, No Primary Care Provider Unavailabl e Allergies No known active allergies Encounters Date Type Department Care Team Description 09/23/2024 Telephone [facility] [address] [place] [address] None, None from Last 3 Months Social History Tobacco Use Types Packs/Day Years [...] Date Last Done Comments [facility]-Depression Screening 1980 [facility]-/Child/Adol SDOH Screenings 1980 [facility]-Varicella Vaccines (1 of 2 - 13+ 2-dose series) 1993 HPV Vaccines (1 - Male 3-dose series) 1995 [facility]- SDOH Screenings 1998 [facility]-Adult SDOH Screenings 1998 [facility]-Hepatitis B Vaccines (1 of 3 - 19+ 3-dose series) 1999 [id number] Vaccine (1 - season) 2023 [facility]-Influenza Vaccine (#1) 11/04/202402/22, 01/18/2019 [...] Reactive Non Reactive 12/22/2022 4:27 PM EDT [facility] Comment:Screening for HIV 1 & 2 antibodies, and P24 antigen is NONREACTIVE. No confirmatory testing is required. Blood Venous blood specimen / Unknown Venipuncture / Unknown 12/22/2022 3:23 PM EDT 12/22/2022 3:47 PM EDT [facility] BLOOD ORDERABLES Final Re sult [facility] [address] [place] [address] * Hepatitis C Antibody - ED (12/22/2022 3:23 PM EDT) Hepatitis C Antibody Negative Negative 12/22/2022 4:30 PM EDT [facility] Blood Venous blood specimen / Unknown Venipuncture / Unknown 12/22/2022 3:23 PM EDT 12/22/2022 3:48 PM EDT [facility] BLOOD ORDERABLES Final Re sult Performing Organization Address City/[facility] [address]/ZIP Co de Phone Number [facility] [address] [place] [address] from Last 3 Months or Most Recently Relevant to Health Maintenance Insurance [employer] [facility] MEDICAID Care Teams Manager Leasing Relationship Specialty Start Date End Date Pcp, No [address] [place] [address] PCP - General Family Medicine 12/22/22
--- NOTE | 2024-10-11 22:57 | PC.NURSE ---
Patient extremely agitated with staff on not providing medication for sting to right and left leg. Patient informed that medicaiton was ordered but due to increased volume in ER and acuity of patient medication was not administer in a timely manner according to patient. Patient was in ER under 30 minutes and informed that medication was not available in hospital, but was offered different medication per provider in room. Patient refused, and continued to ask why his cream wasnt ready for his bug bite. Patient informed once again that medication was not available, and oral medication was offered to which patient stood up and walked out of room, leaving hospital. Patient provided dc paperwork, but refused vital signs prior to assessment and during dc.
[2024-10-11 23:08] VITALS: RESP 16; O2SAT 0; BMI 25.0
[2024-10-11 23:13] VITALS: BP 00/00; PULSE 0; RESP 0; TEMP -17.7; TEMP 0; O2SAT 0
== END 2024-10-11 23:14 | disposition home or self-care (01) ==
PROVIDERS: Emergency Provider Student in an Organized Health Care Education/Training Program
DX: T63.441A Toxic effect of venom of bees, accidental (unintentional), initial encounter (principal)
CPT/HCPCS: 99283

== ENCOUNTER 2024-10-12 17:55 | Emergency (ER) | payer OTHER, SELFPAY ==
--- OUTSIDE RECORDS SUMMARY | 2015-06-04 05:50 | XMS_ITS | Continuity of Care Document ---
Author Organization [facility] Address [address] [place] [address] Phone Care Team Providers Care Master Black Belt Name Role Phone Kaushik Robbins MD Unavailable [...] Available - Active Procedures Procedure Date Office/outpatient visit,[facility], [facility] 2015 Office/outpatient visit,new, [facility] 2015 X-ray exam of pelvis, 1-2 views 016 Advance Directives Directive Yes / No Effective Date File Name No Information Encounters Encounter Description Practice Location Reason(s) For Visit Diagnoses Date Provider Providers Copied on Encounter Office/outpat ient visit,[facility], [facility], [facility] [employer] [place], [place], [facility], tel:[phone] [facility] No Information 6 [place] Kaushik. [facility] [employer] [place], [place], [id number] , [place]. tel:[phone] [facility], [facility] [place], [address], tel:[phone] [facility] No Information 6 [place] Kaushik. [address] [facility] [place], [place], [id number] , [place]. [phone] Family History Family Member Type Diagnosis Age At Onset Problem (finding) Family history of hyper tension Problem (finding) Family history of diabetes mellitus in first degree relative Problem (finding) Family history of Heart disease Payers Payer name Insurance type Covered republican ID Authortelma grey(s) [employer] [facility] Medicaid - [id number] [id number] 1 Social History Type Description Quantity Date Captured Comments Sex Male Smoking Status No Information Chief Complaint And Reason For Visit No Information Reason For Referral Reason For Referral No Information Plan Of Treatment Date Type Action Status Future Order: Radiology Order MR I [place] WO Contrast ([id number]), Ordered on: Ordered History Of Present Illness Encounter Date Complaint History Of Prese nt Illness No Information Functional Status Date Functional Assessmen t No Information Instructions Date Instruction Additional Infor mation No Information Assessments Type Assessment Date No Information Patient Care Teams Name Effective Dates (start - stop) Status Members No Information
[2024-10-12 17:58] VITALS: BP 145/87; PULSE 84; RESP 18; TEMP 36.9; O2SAT 99; BMI 29.4
--- OUTSIDE RECORDS SUMMARY | 2024-10-12 18:07 | XMS_ITS | Encounter Summary ---
Author Organization Healthcare Address [address] [place] [address] Care Team Providers Care Vertica Architect Name Role Phone Pcp, No Primary Care Provider Unavailabl e Encounter Details Date Type Department Care Team (Late st Contact Info) Description 09/23/2024 Telephone [facility] [address] [place] [address] None, None [address] [place] [address] Social History Tobacco Use Types [...] Patient declined need to be seen by [facility]. documented in this encounter Plan of Treatment Not on file documented as of this encounter Visit Diagnoses Not on filedocumented in this encounter Care Teams Vertica Architect Relationship Specialty Start Date End Date Pcp, No [address] [place] [address] PCP - General Family Medicine 12/22/22 documented as of this encounter
--- OUTSIDE RECORDS SUMMARY | 2024-10-12 18:07 | XMS_ITS | Clinical Summary ---
Author Organization Healthcare Address [address] [place] [address] Care Team Providers Care Senior Mainframe Developer Name Role Phone Pcp, No Primary Care Provider Unavailabl e Allergies No known active allergies Encounters Date Type Department Care Team Description 09/23/2024 Telephone [facility] [address] [place] [address] None, None from Last 3 [...] of 3 - 19+ 3-dose series) 1999 [id number] Vaccine (1 - season) 2023 [facility]-Influenza Vaccine [...] Reactive Non Reactive 12/22/2022 4:27 PM EDT [facility] Comment:Screening for HIV 1 & 2 antibodies, and P24 antigen is NONREACTIVE. No confirmatory testing is required. Blood Venous blood specimen / Unknown Venipuncture / Unknown 12/22/2022 3:23 PM EDT 12/22/2022 3:47 PM EDT [facility] BLOOD ORDERABLES Final Re sult [facility] [address] [place] [address] * Hepatitis C Antibody - ED (12/22/2022 3:23 PM EDT) Hepatitis C Antibody Negative Negative 12/22/2022 4:30 PM EDT [facility] Blood Venous blood specimen / Unknown Venipuncture / Unknown 12/22/2022 3:23 PM EDT 12/22/2022 3:48 PM EDT [facility] BLOOD ORDERABLES Final Re sult Performing Organization Address City/[facility]/ZIP Co de Phone Number [facility] [address] [place] [address] from Last 3 Months or Most Recently Relevant to Health Maintenance Insurance [employer] [facility] MEDICAID Care Teams Senior Mainframe Developer Relationship Specialty Start Date End Date Pcp, No [address] [place] [address] PCP - General Family Medicine 12/22/22
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
[2024-10-12] MEDS: ONDANSETRON 4MG/2ML VIAL 4 MG IV (18:28)
[2024-10-12] MEDS: MORPHINE 4MG/ML SYRINGE 4 MG IV (18:28)
[2024-10-12] MEDS: IOPAMIDOL-370 (76%);100ML BOTTLE 160 ML IV (18:58)
[2024-10-12] MEDS: 0.9 % SODIUM CHLORIDE 50 ML VIAL 80 ML IV (18:58)
[2024-10-12] MEDS: SODIUM CHLORIDE 0.9% 10ML SYR (RAD ONLY) 10 ML IV (18:59)
[2024-10-12 19:21] VITALS: BP 127/78; PULSE 71; O2SAT 98
[2024-10-12 19:22] VITALS: BP 127/78; PULSE 63; RESP 16; O2SAT 98
[2024-10-12 19:30] VITALS: BP 120/85; PULSE 71; O2SAT 97
[2024-10-12] MEDS: ACETAMINOPHEN 500MG TAB 1000 MG PO (19:58)
[2024-10-12] MEDS: KETOROLAC 30MG/ML VIAL 30 MG IV (19:58)
[2024-10-12] MEDS: LIDOCAINE 5% TRANSDERMAL PATCH 1 EACH TD (19:58)
[2024-10-12] MEDS: METHOCARBAMOL 500MG TABLET 500 MG PO (19:58)
[2024-10-12 20:16] VITALS: BP 120/85; PULSE 71; RESP 16; TEMP 36.8; O2SAT 97
== END 2024-10-12 20:19 | disposition home or self-care (01) ==
PROVIDERS: Emergency Provider Student in an Organized Health Care Education/Training Program
DX: M54.2 Cervicalgia (principal); M25.512 Pain in left shoulder; M54.59 Other low back pain; R91.1 Solitary pulmonary nodule; V29.99XA Rider (driver) (passenger) of other motorcycle injured in unspecified traffic accident, initial encounter; Y92.410 Unspecified street and highway as the place of occurrence of the external cause
CPT/HCPCS: 70450; 70496; 70498; 71275; 72125; 72128; 72131; 74174; 96374; 96375; 99285; J1885; J2270; J2405; Q9967

== ENCOUNTER 2025-02-06 17:14 | Emergency (ER) | payer OTHER, SELFPAY ==
[2025-02-06 17:14] VITALS: BP 129/79; PULSE 90; RESP 20; TEMP 36.6; O2SAT 96; BMI 31.1
[2025-02-06 17:38] VITALS: BP 146/86; PULSE 95; O2SAT 98
--- NOTE | 2025-02-06 18:05 | XR_ITS ---
PROCEDURE INFORMATION: Exam: XR Right Ankle Exam date and time: 02/06/2025 6:20 PM Age: 44 years old Clinical indication: Pain; Ankle; Right; Additional info: Lateral malleolus tenderness TECHNIQUE: Imaging protocol: Radiologic exam of the right ankle. Views: 3 or more views. COMPARISON: CR XR ANKLE RT MIN 3V 10/17/2022 10:38 PM FINDINGS: Bones/joints: Old posttraumatic versus developmental ossicle inferior to the tip of the lateral malleolus. Unchanged. No acute fracture. Soft tissues: Normal. IMPRESSION: No evidence for acute fracture.
--- NOTE | 2025-02-06 18:05 | XR_ITS ---
PROCEDURE INFORMATION: Exam: XR Right Foot Exam date and time: 02/06/2025 6:20 PM Age: 44 years old Clinical indication: Pain; Foot; Right; Additional info: Lateral foot pain TECHNIQUE: Imaging protocol: Radiologic exam of the right foot. Views: 3 or more views. COMPARISON: CR XR FOOT RT MIN 3V 08/21/2022 9:58 PM FINDINGS: Bones/joints: Dystrophic calcification noted within the distal Achilles tendon, unchanged. Soft tissues: Normal. IMPRESSION: 1. Dystrophic calcification noted within the distal Achilles tendon, unchanged. 2. No acute abnormalities are identified.
--- NOTE | 2025-02-06 18:07 | ED_ITS ---
Discharge Plan Disposition Patient Disposition: Home, Self-Care Prescriptions Prescriptions: No Action budesonide-formoterol [Symbicort] 160-4.5 mcg/actuation HFA aerosol inhaler 2 puff inhalation .PRN Qty: 10.2 3RF fluticasone propionate [Flonase Allergy Relief] 50 mcg/actuation spray,suspension 2 spray intranasal DAILY 90 Days Qty: 16 2RF Rx Instructions: administer into each nostril methocarbamol 500 mg tablet 500 mg PO Q8H Qty: 90 0RF Referrals Follow up/Referrals: Darrius Gonsalves DO [Primary Care Provider, [facility]] - See instructions Activity Restrictions/Add. Instructions Additional Instructions/Restrictions: You have been seen and evaluated in the emergency department. You been given a walking boot and crutches for assistance. I recommend you continue resting the ankle, icing it as needed, and elevating the leg above the level of the heart while resting. Please follow-up with your primary care doctor should you have persistent pain, at that time you may require further imaging or referral to orthopedics. Clinical Impressions Clinical Impression: Acute ankle pain Qualifiers: Laterality: right Qualified Code(s): M25.571 - Pain in right ankle and joints of right foot Stand Alone Forms Stand Alone Forms: Work/School Release Instructions Patient Instructions: DI for Ankle Pain Print Language Print Language: Italian Discharge ED Provider: Carmella Dixon General Adult HPI General Chief complaint: Extremity Injury, Lower Stated complaint: AO 02/06 15ft board Leg pain and foot pain Time Seen by Provider: 02/06/25 17:47 Mode of Arrival: Ambulatory Source of Information: Patient and Spouse Description of Symptoms (Recalled from ER Triage Doc. by RN): pt was working out and slipped on a 2x6 hitting his right calf and a wood post fell and landed on top of right ankle, pt limped into triage room, bruising and swelling noted, pms intact History of Present Illness HPI narrative: This is a 44-year-old male who denies significant past medical history presenting the emergency department with right lateral ankle pain. He had a 200 pound piece of wood fall on his right ankle. The injury occurred approximately 1 to 2 hours prior to ED arrival. The leg was not pinned or trapped for any significant amount of time. He is having difficulty with ambulation due to significant right lateral ankle pain. He is able to point and flex his foot. Denies any numbness or tingling in the foot or toes. Denies any pain in the knee or calf. No blood thinners. Denies other injury. Related Data Previous Rx's ?Medication ?Instructions ?Recorded methocarbamol 500 mg tablet 500 mg PO Q8H #90 tabs 11/28 budesonide-formoterol HFA 160 2 puff inhalation .PRN # 10.2 grams 01/20/25 mcg-4.5 mcg/actuation aerosol inhaler (Symbicort) fluticasone propionate 50 2 spray intranasal DAILY 90 days 01/20/25 mcg/actuation nasal #16 grams spray,suspension (Flonase Allergy Relief) Allergies Allergy/AdvReac Type Severity Reaction Status Date / Time hydrocodone (From Vicodin) Allergy Hives Verified 01/20/25 09:56 propoxyphene (From Allergy Hives Verified 01/20/25 09:56 Darvocet-N) [facility] Disclaimer: The information contained in this section may have been updated after the patient was seen, as this information can be updated by other users. Medical History (Updated 02/06/25 @ 19:48 by Carmella Dixon DO) Tobacco abuse counseling Tobacco abuse No significant past medical history Surgical History History of tonsillectomy H/O left wrist surgery Family History Other Family history of diabetes mellitus type II Social History Smoking Status: Current every day smoker tobacco type: cigarettes packs per day: 1 second hand exposure: No alcohol intake: never substance use type: denies use current occupational status: unemployed Travel in the last 8 weeks?: None household members: significant other and children housing: house current occupation: [employer] current occupational exposures/hazards: No Have you lived/traveled outside [place] in past 30 days?: No Contact w/someone who lives/traveled outside [place] past 30 days?: No Exposure to someone with infectious disease in past 14 days?: No Do you have a fever (greater than 100.4 F or 38 C)?: No Have you tested positive for COVID-19?: No Exposed to someone with COVID-19 in past 14 days?: No Do you have a sore throat?: No Do you have a cough?: No Do you have any weakness?: No Do you have any diarrhea?: No Are you experiencing any unusual bleeding?: No Do you have any muscle aches/pain?: No Do you have any abdominal pain?: No Are you experiencing loss of taste or smell?: No Other Medical History Have you received the Flu Vaccine for this season: No Have you received the Pneumonia Vaccine: No ROS Obtained: Yes All systems reviewed & no additional complaints except as documented Physical Exam General General appearance: alert and in no apparent distress Head Head exam: atraumatic Eye Eye exam: Present normal appearance, PERRL and EOMI ENT ENT exam: Present mucous membranes moist Neck Neck exam: Present normal inspection and full ROM; Absent tenderness Chest Chest inspection: Present symmetric chest wall rise; Absent tenderness Respiratory Respiratory exam: Absent respiratory distress, wheezes or accessory muscle use Cardiovascular Cardiovascular exam: Present regular rate and normal rhythm Abdominal Exam Abdominal exam: Present soft; Absent tenderness or guarding Extremities Exam Extremities exam: Present other (Tenderness to palpation with swelling over the right lateral malleolus. No calcaneal tenderness. Patient is able to plantarflex and dorsiflex. No numbness or tingling to the foot. Strong distal DP and PT pulses. No calf or bray tenderness. No open wounds.) Neurological Exam Neurological exam: Present alert and oriented X3 Psychiatric Psychiatric exam: Present normal affect Skin Skin exam: Present warm and dry Medical Decision Making Medical Records Screening: Per USPSTF and CDC recommendations, given the prevalence of disease in our region, it is our hospital?s policy to screen for HIV and viral Hepatitis for all patients aged 18 and over and those with ongoing risk factors. Ye Inquiry Pt receiving controlled substance: No Vital Signs: 02/06/25 17:14 02/06/25 17:38 02/06/25 19:55 Temperature 97.8 F 98.5 F Temperature Source Oral Oral Pulse Rate 95 H 92 H Pulse Rate [Left Radial] 90 Respiratory Rate 20 16 Blood Pressure 146/86 H 134/84 Blood Pressure [Right Arm] 129/79 Blood Pressure Mean [Right Arm] 95 Blood Pressure Source Automatic Cuff 02 Sat by Pulse Oximetry 96 98 Oxygen Delivery Method Room Air Orders (Tests/Meds): ED MEDICATIONS Discontinued Medications Generic Name Dose Route Start Last Admin Trade Name Tr PRN Reason Stop Dose Admin Ibuprofen 400 mg 02/06/25 18:05 02/06/25 18:12 Ibuprofen 400 Mg Tablet PO 02/06/25 18:06 400 mg ONCE ONE Administration Oxycodone/Acetaminophen 1 each 02/06/25 18:05 02/06/25 18:12 Oxycodone 7.5mg W/Apap 325mg Tablet PO 02/06/25 18:06 1 each ONCE ONE Administration ORDERS Category Date Time Status Ankle XR -Right minimum 3 Views [XR ankle RT min 3V] Exams 02/06/25 18:05 Completed Stat Foot XR right minimum 3 views [XR foot RT min 3V] Stat Exams 02/06/25 18:05 Completed Medical Decision Narrative: In summary, this is a 44y/o male presenting the emergency department for right ankle pain after a large heavy log fell onto the right ankle. Differential diagnosis includes but is not limited to: Fracture, dislocation, hematoma, hemarthrosis On my initial assessment, the patient is hemodynamically stable in no acute distress. Physical exam is notable for tenderness palpation along the right lateral malleolus with accompanying swelling, this is a closed injury with no open wounds. The patient was given Percocet and ibuprofen for treatment of symptoms. I personally interpreted x-rays of the right foot and right ankle. There are no acute fractures. No widening of the ankle mortise. Radiology reads in agreements. On my reassessment, the patient is ambulatory, able to bear weight on the right ankle. He was discharged with a walking boot for the right ankle and offered crutches. I recommended rest, ice, compression, and elevation at home. I did encourage him to follow-up with his PCP if his symptoms are persistent, as he may require an MRI if he continues to have significant pain. Critical Care Critical Care Time Critical Care Time: No
[2025-02-06] MEDS: IBUPROFEN 400 MG TABLET PO (18:12)
[2025-02-06] MEDS: OXYCODONE 7.5MG W/APAP 325MG TABLET 1 EACH PO (18:12)
[2025-02-06 19:55] VITALS: BP 134/84; PULSE 92; RESP 16; TEMP 36.9; O2SAT 97
== END 2025-02-06 20:01 | disposition home or self-care (01) ==
PROVIDERS: Emergency Provider Student in an Organized Health Care Education/Training Program; PCP Student in an Organized Health Care Education/Training Program
DX: M25.571 Pain in right ankle and joints of right foot (principal); W20.8XXA Other cause of strike by thrown, projected or falling object, initial encounter
CPT/HCPCS: 73610; 73630; 99283